=== PATIENT | female | born 1955 | race Caucasian/White ===

== ENCOUNTER → 2018-05-13 13:30 | Outpatient (CLI) | payer MEDICARE, MEDICAID, SELFPAY | PROVIDERS: PCP Family Medicine; Visit Provider Psychiatry & Neurology Neurology | DX: G35 Multiple sclerosis (principal); I69.351 Hemiplegia and hemiparesis following cerebral infarction affecting right dominant side; E11.42 Type 2 diabetes mellitus with diabetic polyneuropathy; F32.2 Major depressive disorder, single episode, severe without psychotic features; Z99.3 Dependence on wheelchair | CPT/HCPCS: 99214 ==

== ENCOUNTER → 2018-05-20 19:37 | Outpatient (REF) | payer MEDICARE, MEDICAID, SELFPAY ==
[2018-05-20 22:47] LABS: Bilirubin Negative (Negative); Blood Negative (Negative); Clarity Cloudy; Glucose Negative (Negative); Ketones Negative (Negative); Leukocyte Esterase Negative (Negative); Nitrite Negative (Negative); Specific Gravity 1.015 (1.005-1.025); Urobilinogen 0.2 EU/dL (Up TO 0.2)
== END ==
LOC: NCHCN 19:37
PROVIDERS: PCP Family Medicine; Visit Provider Family Medicine
DX: N39.0 Urinary tract infection, site not specified (principal)
CPT/HCPCS: 81003; 87086

== ENCOUNTER 2018-09-01 21:10 | Outpatient (REF) | payer MEDICARE, MEDICAID, SELFPAY ==
[2018-09-01 22:31] LABS: ALT 24 U/L (12-78); AST 39 U/L (15-37); Albumin 3.1 g/dL (3.4-5.0); Alkaline Phosphatase 121 U/L (46-116); Anion Gap 7.6 mmol/L (3-11); BUN 7 mg/dL (7-18); CO2 30.4 mmol/L (21.0-32.0); CREATININE 0.78 mg/dL (0.55-1.02); Calcium 8.7 mg/dL (8.5-10.1); Chloride 102 mmol/L (98-107); Glucose 275 mg/dL (70-100); Potassium 3.6 mmol/L (3.5-5.1); Sodium 140 mmol/L (136-145); Total Protein 7.8 g/dL (6.4-8.2)
[2018-09-01 22:41] LABS: HGB 9.4 g/dL (12.0-15.5); Mean Corp. HGB Concentration 30.3 g/dL (32.0-36.0); Mean Corpuscular Hemoglobin 24.8 pg (27.0-33.0); Mean Corpuscular Volume 81.8 fL (80-95); Mean Platelet Volume 12.1 fL (8.0-11.0); RBC 3.79 m/cumm (4.00-5.20); RBC Distribution Width 19.3 % (11.7-14.6); White Blood Cell Count 6.76 k/cumm (4.4-10.8)
[2018-09-01 23:04] LABS: Hemoglobin A1C 9.5 % (4.5-6.2)
[2018-09-01 23:39] LABS: Platelet Count 134 x1000/uL (130-400)
== END 2018-09-01 21:30 ==
LOC: NCHCN 21:10
PROVIDERS: PCP Family Medicine; Visit Provider Family Medicine
DX: G55 Nerve root and plexus compressions in diseases classified elsewhere (principal); E11.9 Type 2 diabetes mellitus without complications; D64.9 Anemia, unspecified
CPT/HCPCS: 80053; 85027; 83036

== ENCOUNTER 2018-12-17 21:22 | Outpatient (REF) | payer MEDICARE, MEDICAID, SELFPAY ==
[2018-12-17 22:11] LABS: HCT 29.5 % (36.0-46.0); HGB 8.6 g/dL (12.0-15.5); Mean Corp. HGB Concentration 29.2 g/dL (32.0-36.0); Mean Corpuscular Hemoglobin 24.4 pg (27.0-33.0); Mean Corpuscular Volume 83.6 fL (80-95); RBC 3.53 m/cumm (4.00-5.20); RBC Distribution Width 20.6 % (11.7-14.6); White Blood Cell Count 5.96 k/cumm (4.4-10.8)
[2018-12-17 22:28] LABS: Iron 52 ug/dL (50-175); Total Iron Binding Capacity 428 ug/dL (250-450); Transferrin Sat 12 % (15-50)
[2018-12-17 22:34] LABS: Hemoglobin A1C 7.3 % (4.5-6.2)
[2018-12-17 23:06] LABS: Platelet Count 100 x1000/uL (130-400)
[2018-12-18 13:47] LABS: Vitamin D 25 Total 103.7 ng/ml (30-100)
[2018-12-22 17:05] LABS: 25-Hydroxy D Total 53 ng/mL; 25-Hydroxy D2 <4.0 ng/mL; 25-Hydroxy D3 53 ng/mL
== END 2018-12-17 21:42 ==
LOC: NCHCN 21:22
PROVIDERS: PCP Family Medicine; Visit Provider Family Medicine
DX: R53.1 Weakness (principal); E11.9 Type 2 diabetes mellitus without complications; Z79.4 Long term (current) use of insulin; G35 Multiple sclerosis; E67.3 Hypervitaminosis D; D64.9 Anemia, unspecified; I10 Essential (primary) hypertension
CPT/HCPCS: 82306; 85027; 83036; 83540; 83550

== ENCOUNTER 2018-12-22 21:36 | Outpatient (REF) | payer MEDICARE, MEDICAID, SELFPAY ==
[2018-12-22 21:38] LABS: Reticulocyte 2.4 % (0.5-2.4)
[2018-12-22 21:54] LABS: COMMENT (LAB VIEW ONLY) 22.92 mg/dL; Microalb ug/mg Crea 47.1 ug/mg Cr
[2018-12-22 22:32] LABS: Ferritin 14 ng/mL (8-388)
== END 2018-12-22 21:56 ==
LOC: NCHCN 21:36
PROVIDERS: PCP Family Medicine; Visit Provider Family Medicine
DX: D64.9 Anemia, unspecified (principal); E11.40 Type 2 diabetes mellitus with diabetic neuropathy, unspecified; G35 Multiple sclerosis; Z79.4 Long term (current) use of insulin
CPT/HCPCS: 82043; 82570; 82728; 85045

== ENCOUNTER 2019-01-13 04:17 | Outpatient (RCR) | payer MEDICARE, MEDICAID, SELFPAY ==
[2019-01-13] MEDS: Normal Saline Flush 10 ML SYR IVP (09:18)
== END 2019-02-09 23:59 | disposition home or self-care (01) ==
LOC: INF 04:17
PROVIDERS: PCP Family Medicine; Visit Provider Family Medicine
DX: D50.9 Iron deficiency anemia, unspecified (principal); G35 Multiple sclerosis; Z86.73 Personal history of transient ischemic attack (TIA), and cerebral infarction without residual deficits; E11.40 Type 2 diabetes mellitus with diabetic neuropathy, unspecified; I69.351 Hemiplegia and hemiparesis following cerebral infarction affecting right dominant side; I10 Essential (primary) hypertension
CPT/HCPCS: 96365; 96366; 99214; J1756

== ENCOUNTER 2019-09-01 20:24 | Outpatient (REF) | payer MEDICARE, MEDICAID, SELFPAY ==
[2019-09-01 12:52] LABS: Bilirubin Negative (Negative); Blood Moderate (Negative); Clarity Cloudy (Clear); Glucose Negative (Negative); Ketones Negative (Negative); Leukocyte Esterase Small (Negative); Nitrite Positive (Negative)
[2019-09-01 13:02] LABS: Bacteria Packed HPF (Negative); Epithelial Cells Moderate HPF (Negative)
[2019-09-01 13:03] LABS: C & S Indicated? C&S Done As Ordered
== END 2019-09-01 20:44 ==
LOC: LBN 20:24
PROVIDERS: PCP Family Medicine; Visit Provider Family Medicine
DX: R35.0 Frequency of micturition (principal)
CPT/HCPCS: 87077; 81003; 81015; 87086; 87186

== ENCOUNTER 2019-12-08 12:13 | Outpatient (REF) | payer MEDICARE, MEDICAID, SELFPAY ==
[2019-12-08 12:59] LABS: Bilirubin Negative (Negative); Blood Small (Negative); Clarity Cloudy (Clear); Glucose Negative (Negative); Ketones Negative (Negative); Leukocyte Esterase Large (Negative); Nitrite Positive (Negative)
[2019-12-08 13:06] LABS: C & S Indicated? C&S Done As Ordered
[2019-12-08 21:22] LABS: Bacteria Many HPF (Negative)
[2019-12-08 21:36] LABS: WBC >50 HPF (0-5)
== END 2019-12-08 12:33 ==
LOC: LBN 12:13
PROVIDERS: PCP Family Medicine; Visit Provider Nurse Practitioner Adult Health
DX: N39.0 Urinary tract infection, site not specified (principal)
CPT/HCPCS: 87077; 81003; 81015; 87086; 87186

== ENCOUNTER 2019-12-14 09:53 | Outpatient (CLI) | payer MEDICARE, MEDICAID, SELFPAY ==
[2019-12-14 11:40] LABS: Anion Gap 8.5 mmol/L (3-11); BUN 8 mg/dL (7-18); CO2 26.5 mmol/L (21.0-32.0); CREATININE 0.69 mg/dL (0.55-1.02); Calcium 8.1 mg/dL (8.5-10.1); Chloride 106 mmol/L (98-107); Glucose 137 mg/dL (74-106); Potassium 3.8 mmol/L (3.5-5.1); Sodium 141 mmol/L (136-145)
[2019-12-14 11:49] LABS: Hemoglobin A1C 5.3 % (3.8-5.6)
[2019-12-14 11:56] LABS: Absolute Basophil Count 0.08 k/cumm (0.0-0.2); Absolute Eosinophil Count 0.24 k/cumm (0.0-0.7); Absolute Lymphocyte Count 1.44 k/cumm (1.2-3.4); Absolute Monocyte Count 1.18 k/cumm (0.11-0.7); Absolute Neutrophil Count 2.95 k/cumm (1.2-6.7); Basophils % 1.4; Eosinophils % 4.1; HCT 28.6 % (36.0-46.0); HGB 8.6 g/dL (12.0-15.5); Lymphocytes % 24.4; Mean Corp. HGB Concentration 30.1 g/dL (32.0-36.0); Mean Corpuscular Hemoglobin 25.2 pg (27.0-33.0); Mean Corpuscular Volume 83.9 fL (80-95); Mean Platelet Volume 11.1 fL (8.0-11.0); Neutrophils % 50.1; Platelet Count 155 x1000/uL (130-400); RBC 3.41 m/cumm (4.00-5.20); White Blood Cell Count 5.89 k/cumm (4.4-10.8)
[2019-12-14 12:26] LABS: Macrocytosis 1+; Poikilocytes 1+; Polychromasia Present
[2019-12-14 12:27] LABS: Anisocytosis 2+; Hypochromasia 2+
[2019-12-14 12:31] LABS: Diff Comment RBC Morph Reviewed
== END 2019-12-14 10:13 ==
PROVIDERS: PCP Family Medicine; Visit Provider Nurse Practitioner Adult Health
DX: D50.9 Iron deficiency anemia, unspecified (principal); E11.9 Type 2 diabetes mellitus without complications; N31.9 Neuromuscular dysfunction of bladder, unspecified; E78.5 Hyperlipidemia, unspecified
CPT/HCPCS: 80048; 83036; 85025

== ENCOUNTER 2020-01-11 12:56 | Outpatient (REF) | payer MEDICARE, MEDICAID, SELFPAY ==
[2020-01-11 13:37] LABS: Absolute Basophil Count 0.06 k/cumm (0.0-0.2); Absolute Eosinophil Count 0.28 k/cumm (0.0-0.7); Absolute Lymphocyte Count 1.51 k/cumm (1.2-3.4); Absolute Monocyte Count 0.71 k/cumm (0.11-0.7); Absolute Neutrophil Count 2.49 k/cumm (1.2-6.7); Basophils % 1.2; Eosinophils % 5.5; HCT 28.4 % (36.0-46.0); HGB 8.4 g/dL (12.0-15.5); Lymphocytes % 29.9; Mean Corp. HGB Concentration 29.6 g/dL (32.0-36.0); Mean Corpuscular Hemoglobin 25.3 pg (27.0-33.0); Mean Corpuscular Volume 85.5 fL (80-95); Mean Platelet Volume 11.2 fL (8.0-11.0); Monocytes % 14.1; Neutrophils % 49.3; Platelet Count 116 x1000/uL (130-400); RBC 3.32 m/cumm (4.00-5.20); White Blood Cell Count 5.05 k/cumm (4.4-10.8)
[2020-01-11 14:07] LABS: Anisocytosis 1+; Diff Comment RBC Morph Reviewed
== END 2020-01-11 13:16 ==
LOC: LBN 12:56
PROVIDERS: PCP Family Medicine; Visit Provider Nurse Practitioner Adult Health
DX: D50.9 Iron deficiency anemia, unspecified (principal); E78.5 Hyperlipidemia, unspecified; R39.81 Functional urinary incontinence
CPT/HCPCS: 85025

== ENCOUNTER 2020-01-27 12:22 | Outpatient (REF) | payer MEDICARE, MEDICAID, SELFPAY | END 2020-01-27 12:42 | LOC: LBN 12:22 | PROVIDERS: PCP Family Medicine; Visit Provider Nurse Practitioner Adult Health | DX: R82.90 Unspecified abnormal findings in urine (principal) | CPT/HCPCS: 87077; 87086; 87186 ==

== ENCOUNTER 2020-02-12 22:19 | Emergency (ER) | payer MEDICARE, MEDICAID, SELFPAY ==
[2020-02-12] VITALS (12 sets, daily range): BP systolic 147–161; BP diastolic 59–87; PULSE 68–74; RESP 10–20; TEMP 36.4; O2SAT 97–100
--- NOTE | 2020-02-12 22:15 | DI.RAD_ITS ---
EXAM: XR FEMUR RT CLINICAL HISTORY: pain s/p fall TECHNIQUE: 2D digital imaging was performed. COMPARISON: No exams were available for comparison FINDINGS: There is a fracture through the distal femoral metadiaphysis which shows mild comminution. There is posterior displacement and angulation. The more proximal femur is not well seen in part due to the patient's body habitus. The bones appear osteoporotic. IMPRESSION: Distal femoral fracture.
--- NOTE | 2020-02-12 22:15 | DI.RAD_ITS ---
EXAM: XR CHEST 1V IN DI DEPT CLINICAL HISTORY: fall TECHNIQUE: 2D digital imaging was performed. COMPARISON: BARIUM SWALLOW ONLY from 04/10/2017 FINDINGS: Exam is limited by the patient's body habitus. The heart size is within normal limits for projectio n. EKG leads overlie the chest. The lungs are grossly clear. There is no gross and evidence of pne umothorax. IMPRESSION: No acute abnormality.
--- NOTE | 2020-02-12 22:15 | DI.RAD_ITS ---
EXAM: XR TIB/FIB RT CLINICAL HISTORY: pain s/p fall TECHNIQUE: 2D digital imaging was performed. COMPARISON: No exams were available for comparison FINDINGS: The exam is limited by overlying material. The distal fibula and ankle region are not well seen. T here is no gross evidence of fracture. Soft tissue edema is seen. The bones appear osteoporotic. IMPRESSION: Limited exam. No gross evidence of an acute abnormality.
--- NOTE | 2020-02-12 22:15 | DI.RAD_ITS ---
EXAM: XR KNEE RT 2V AP,LAT CLINICAL HISTORY: pain s/p fall TECHNIQUE: 2D digital imaging was performed. COMPARISON: RIGHT KNEE LIMITED 1 OR 2 VIEW from 01/13/2014 FINDINGS: There is an oblique fracture through the distal femoral meta diaphysis. There is some displacement and comminution. Soft tissue edema is seen. The proximal tibia and fibula appear grossly intact. IMPRESSION: Distal femoral fracture.
--- NOTE | 2020-02-12 22:15 | DI.RAD_ITS ---
EXAM: XR HIP RT COMPLETE AP PELVIS INDICATION: pain s/p fall. COMPARISON: PELVIS AP from 08/28/2017 TECHNIQUE: 2D digital imaging was performed. FINDINGS: No acute fracture or dislocation is seen. There is mild bilateral acetabular spurring. The joint s paces are well maintained. There is a chronic appearing deformity of the right ischium, unchanged wh en compared with the previous exam. IMPRESSION: No acute abnormality. DATA REPOSITORY: RADIATION DOSE DELIVERED:
--- NOTE | 2020-02-12 22:29 | ED.GENADUL_ITS ---
Discharge Plan Disposition Patient Disposition: HOME Condition: Stable Discharge Details Chief Complaint: Orthopedic Clinical Impression: Hypomagnesemia, Fall, Blunt trauma of right lower leg, Closed fracture of distal end of right femur Primary Care Provider: Ambrosio Elias ED Provider: David Amaya [place] Meds and New Rx's Prescriptions: Continued bisacodyl 10 mg suppository 10 mg SD DAILY PRNRF: 0 guaifenesin [Mucinex] 600 mg tablet extended release 12hr 600 mg PO Q12H RF: 0 polyethylene glycol 3350(bulk) [Base B,Polyethylene [id number]] granules 17 grnl miscellaneous PRN RF: 0 (DME) Depend Silhouette Women L/XL misc 1 ea Miscellaneous BID Qty: 200 RF: 5 cholecalciferol (vitamin D3) 5,000 unit capsule 5,000 unit PO DAILY Qty: 90 RF: 3 buspirone 10 mg tablet 10 mg PO BID Qty: 60 RF: 11 Novolin 70-30 FlexPen U-100 100 unit/mL (70-30) insulin pen 55 unit SC AC RF: 0 epinephrine 0.3 mg/0.3 mL auto-injector 0.3 mg IM ONCE Qty: 1 RF: 3 nitroglycerin [Nitrostat] 0.4 mg tablet, sublingual 0.4 mg Sublingual PRN Qty: 25 RF: 4 furosemide 40 mg tablet 20 mg PO DAILY PRN (Reason: edema) Qty: 90 RF: 3 acetaminophen [Tylenol] 325 MG tablet 650 mg PO Q4H PRN RF: 0 hydroxyzine HCl 25 MG tablet 25 mg PO Q4H PRN Qty: 60 RF: 0 nystatin 60 GM powder 1 applic Topical BID PRNQty: 60 RF: 6 nystatin 15 GM cream 0 Topical BID Qty: 30 RF: 3 magnesium hydroxide [Milk of Magnesia] 400 MG/5 ML suspension 30 ml PO PRN RF: 0 alum-mag hydroxide-simeth [Maalox Advanced] 355 ML suspension 30 ml PO PRN RF: 0 (DME) blood-glucose meter [MergeLocalTouch Ultra2 Meter] kit See Dose Instructions .ROUTE .MEDSUPPLY Qty: 1 RF: 0 carbidopa-levodopa 25-250 mg tablet 1 tab PO QHS Qty: 90 RF: 3 clopidogrel 75 mg tablet 75 mg PO DAILY Qty: 90 RF: 3 Flovent HFA 110 mcg/actuation HFA aerosol inhaler 2 puff IH BID Qty: 12 RF: 11 lisinopril 10 mg tablet 10 mg PO DAILY Qty: 90 RF: 3 metformin 1,000 mg tablet 1,000 mg PO BID Qty: 180 RF: 3 pantoprazole 40 mg tablet,delayed release (DR/EC) 40 mg PO DAILY Qty: 90 RF: 3 venlafaxine 75 mg tablet 75 mg PO BID Qty: 180 RF: 3 venlafaxine 37.5 mg tablet 37.5 mg PO BID Qty: 180 RF: 3 metoprolol tartrate 50 mg tablet 50 mg PO BID Qty: 180 RF: 3 (DME) pen needle, diabetic [BD Ultra-Fine Roxanna Pen Needle] 32 gauge x 5/32 needle 1 ea Miscellaneous QID Qty: 400 RF: 5 albuterol sulfate [Ventolin HFA] 90 mcg/actuation HFA aerosol inhaler 2 puff IH Q4H PRN (Reason: shortness of breath or wheezing) Qty: 8.5 RF: 11 (DME) lancets 30 gauge misc See Rx Instructions .ROUTE .MEDSUPPLY Qty: 200 RF: 11 (DME) OneTouch Ultra Blue Test Strip Strip See Dose Instructions .ROUTE .MEDSUPPLY Qty: 200 RF: 11 Discharge Instructions Instructions: Leg Fracture (ED), Hypomagnesemia (ED) Additional Instructions: you have a distal femur fracture. Call orthopedics Friday to arrange a follow up appointment your magnesium was low here, try to increase this through diet and have it rechecked in 1-2 weeks Use the immobilizer until you follow up with orthopedics Referrals: Dk Valentine MD [ [facility] STAFF PHYSICIAN] - Medical Decision Making 65 yo female with hx of prior cva with right sided hemiparesis and wheel chair bound, MS, t2dm, cad, who comes in from [facility] re[facility] after she was being assisted from the toilet to her wheel chair and slipped and fell landing on her right leg. She denies loc, head pain, neck pain chest pain abdominal pain. Has some mid right thigh pain. EMS states the mid thigh appeared swollen and she had relief of pain with traction splint. She normally can't move her right leg from the cva she's had and can't move her leg now. Does have normal cap refill, no pain inor deformity of the right foot or ankle or distal tibia. Has pain in right mid femur. Will xray right leg and monitor. pt remains stable and labs show no acute findings other than low mag. She has a distal femur fracture. I spoke with Dr. Valentine who reviewed images and given she at baseline can't use the leg recommends trial of nonoperative immobilization with leg splint and will f/u with her as outpatient, patient in agreement with this plan Differential Diagnosis Differential Diagnosis: fracture, contusion, sprain, strain Medical Records Medical records reviewed: Yes I reviewed the patient's medical records. Imaging Data Radiologic Study: Attestation: I personally reviewed and interpreted this imaging study as follows: Imaging: X-Ray Radiologist's impression: femur xray IMPRESSION: Closed, acute, oblique comminuted fracture of the right femoral distal shaft / distal metaphysis with posteromedial displacement of the distal major fracture fragment. Radiologic Study #2: Attestation: I personally reviewed and interpreted this imaging study as follows: Imaging: X-Ray Radiologist's impression: negative tib/fib xray Radiologic Study #3: Attestation: I personally reviewed and interpreted this imaging study as follows: Imaging: X-Ray Radiologist's impression: PROCEDURE INFORMATION: Exam: XR Right Knee Exam date and time: 02/12/2020 10:57 PM Age: 65 years old Clinical indication: Right thigh pain, leg pain, S/P fall TECHNIQUE: Imaging protocol: XR Right knee. Views: 3 views. COMPARISON: CR RIGHT KNEE 3 VIEWS 08/08/2016 2:04 PM FINDINGS: Bones/joints: Closed, acute, oblique comminuted fracture of the right femoral distal shaft / distal metaphysis with posteromedial displacement of the distal major fracture fragment. No dislocation. No significant degenerative change. No joint effusion by plain film. Soft tissues: No soft tissue radiopaque foreign body. Distal right thigh soft tissue edema. IMPRESSION: Closed, acute, oblique comminuted fracture of the right femoral distal shaft / distal metaphysis with posteromedial displacement of the distal major fracture fragment. Radiologic Study #4: Attestation: I personally reviewed and interpreted this imaging study as follows: Imaging: X-Ray Radiologist's impression: PROCEDURE INFORMATION: Exam: XR Right Hip with Pelvis when Performed Exam date and time: 02/12/2020 10:54 PM Age: 65 years old Clinical indication: Right thigh pain; Right hip; S/P fall TECHNIQUE: Imaging protocol: XR Right hip with pelvis when performed. Views: 2 or 3 views. COMPARISON: No relevant prior studies available. FINDINGS: Bones/joints: No fracture. No dislocation. No joint space narrowing. No degenerative change. Soft tissues: Unremarkable. IMPRESSION: No acute findings. Radiologic Study #5: Attestation: I personally reviewed and interpreted this imaging study as follows: Imaging: X-Ray Radiologist's impression: PROCEDURE INFORMATION: Exam: XR Chest, 1 View Exam date and time: 02/12/2020 11:15 PM Age: 65 years old Clinical indication: Right leg pain S/P fall TECHNIQUE: Imaging protocol: XR of the chest Views: 1 view. COMPARISON: CR CHEST 2 VIEWS PA,LAT 01/21/2017 8:29 AM FINDINGS: Tubes, catheters and devices: Cardiac leads superimposed over the chest. Lungs: No alveolar infiltrate. Pleural space: No pleural fluid collection. No pneumothorax. Heart/Mediastinum: Unremarkable. No cardiomegaly. Bones/joints: Unremarkable. IMPRESSION: No active pulmonary disease. Lab Data Lab results reviewed: Yes I reviewed the patient's lab results. ECG Data Attestation: I personally reviewed and interpreted this ECG (s) as follows: Prior ECG tracings: not available for review Interpretation: sinus rhythm, rate of 74, pr 186, qtc 426 HPI General Mode of arrival: EMS . Date/Time Provider Initiated Documentation: 02/12/20 22:29 . Limitations to Documentation: no limitations . Information obtained by: patient and EMS . History of Present Illness 65 year old F presents to the emergency department with the chief complaint of fall, described as moderate, and it has been constant. No relieving factors improve symptom(s), No exacerbating factors reported . Related Data Home Medications Medication Instructions Recorded Confirmed acetaminophen [Tylenol] 650 mg PO Q4H PRN tab-cap 08/24/14 02/12/20 hydroxyzine HCl 25 mg PO Q4H PRN #60 tab-cap 01/09/17 10/19/19 nystatin 1 applic TOPICAL BID PRN #60 ea 09/11/17 10/19/19 nystatin 0 TOPICAL BID #30 g 09/12/17 10/19/19 alum-mag hydroxide-simeth [Maalox 30 ml PO PRN ml 05/13/18 02/12/20 Advanced] magnesium hydroxide [Milk of 30 ml PO PRN ml 05/13/18 02/12/20 Magnesia] bisacodyl 10 mg rectal suppository 10 mg SD DAILY PRN 01/13/19 02/12/20 guaifenesin 600 mg tablet, 600 mg PO Q12H 01/13/19 10/19/19 extended release 12 hr polyethylene glycol 3350(bulk) 17 grnl MISCELLANEOUS PRN gm 01/13/19 02/12/20 blood-glucose meter #1 each 02/19/19 10/19/19 cholecalciferol (vitamin D3) 125 5,000 unit PO DAILY #90 cap 02/22/19 02/12/20 mcg (5,000 unit) capsule diaper,brief,adult,disposable #200 each 02/22/19 10/19/19 carbidopa 25 mg-levodopa 250 mg 1 tab PO QHS #90 tab 03/04/19 02/12/20 tablet clopidogrel 75 mg tablet 75 mg PO DAILY #90 tab 03/05/19 02/12/20 fluticasone propionate 110 2 puff IH BID #12 gm 03/15/19 02/12/20 mcg/actuation HFA aerosol inhaler lisinopril 10 mg tablet 10 mg PO DAILY #90 tab 03/15/19 02/12/20 metformin 1,000 mg tablet 1,000 mg PO BID #180 tab 03/15/19 02/12/20 pantoprazole 40 mg tablet,delayed 40 mg PO DAILY #90 tab 03/15/19 02/12/20 release venlafaxine 37.5 mg tablet 37.5 mg PO BID #180 tab-cap 03/15/19 02/12/20 venlafaxine 75 mg tablet 75 mg PO BID #180 tab-cap 03/15/19 02/12/20 metoprolol tartrate 50 mg tablet 50 mg PO BID #180 tab 04/25/19 02/12/20 pen needle, diabetic 32 gauge x #400 ea 05/10/19 10/19/1932 buspirone 10 mg tablet 10 mg PO BID #60 tab 06/01/19 02/12/20 epinephrine 0.3 mg/0.3 mL 0.3 mg IM ONCE #1 syr 09/01/19 02/12/20 injection, auto-injector insulin NPH-regular 70-30 U-100 55 unit SC AC ml 09/01/19 10/19/19 insulin 100 unit/mL subcutaneous pen nitroglycerin 0.4 mg sublingual 0.4 mg SUBLINGUAL PRN #25 tab.sl 09/01/19 02/12/20 tablet albuterol sulfate 90 mcg/actuation 2 puff IH Q4H PRN #8.5 gm 09/16/19 10/19/19 aerosol inhaler furosemide 40 mg tablet 20 mg PO DAILY PRN #90 tab-cap 10/19/19 10/19/19 OneTouch Ultra Blue Test Strip #200 each NS 10/20/19 lancets 30 gauge #200 each 10/20/19 Previous Rx's Medication Instructions Recorded blood-glucose meter #1 each 02/19/19 cholecalciferol (vitamin D3) 125 5,000 unit PO DAILY #90 cap 02/22/19 mcg (5,000 unit) capsule diaper,brief,adult,disposable #200 each 02/22/19 carbidopa 25 mg-levodopa 250 mg 1 tab PO QHS #90 tab 03/04/19 tablet clopidogrel 75 mg tablet 75 mg PO DAILY #90 tab 03/05/19 fluticasone propionate 110 2 puff IH BID #12 gm 03/15/19 mcg/actuation HFA aerosol inhaler lisinopril 10 mg tablet 10 mg PO DAILY #90 tab 03/15/19 metformin 1,000 mg tablet 1,000 mg PO BID #180 tab 03/15/19 pantoprazole 40 mg tablet,delayed 40 mg PO DAILY #90 tab 03/15/19 release venlafaxine 37.5 mg tablet 37.5 mg PO BID #180 tab-cap 03/15/19 venlafaxine 75 mg tablet 75 mg PO BID #180 tab-cap 03/15/19 metoprolol tartrate 50 mg tablet 50 mg PO BID #180 tab 04/25/19 pen needle, diabetic 32 gauge x #400 ea 05/10/19 buspirone 10 mg tablet 10 mg PO BID #60 tab 06/01/19 epinephrine 0.3 mg/0.3 mL 0.3 mg IM ONCE #1 syr 09/01/19 injection, auto-injector nitroglycerin 0.4 mg sublingual 0.4 mg SUBLINGUAL PRN #25 tab.sl 09/01/19 tablet albuterol sulfate 90 mcg/actuation 2 puff IH Q4H PRN #8.5 gm 09/16/19 aerosol inhaler furosemide 40 mg tablet 20 mg PO DAILY PRN #90 tab-cap 10/19/19 OneTouch Ultra Blue Test Strip #200 each NS 10/20/19 lancets 30 gauge #200 each 10/20/19 Allergies Allergy/AdvReac Type Severity Reaction Status Date / Time duloxetine HCl Allergy Severe Verified 02/12/20 22:29 [From Cymbalta] iodine Allergy Severe Other (See Unverified 02/12/20 22:29 Comment) Penicillins Allergy Severe Anaphylaxsi Verified 02/12/20 22:29 s insulin glargine, human Allergy Intermediate Verified 02/12/20 22:29 recombin. a [From Lantus] azithromycin Allergy Unknown Hives Verified 02/12/20 22:29 latex Allergy Unknown Verified 02/12/20 22:29 adhesive Allergy Verified 02/12/20 22:29 egg Allergy unknown Verified 02/12/20 22:29 ibuprofen [From Motrin] Allergy asthma Unverified 02/12/20 22:29 nut - unspecified Allergy Swelling/Ed Unverified 02/12/20 22:29 oswaldo sodium hypochlorite solution Allergy Unverified 02/12/20 22:29 enoxaparin [From Lovenox] AdvReac Mild Skin Rash Unverified 02/12/20 22:29 paroxetine AdvReac Mild sexual Unverified 02/12/20 22:29 dysfunction tetracycline AdvReac Mild yeast Unverified 02/12/20 22:29 hmg co reductasse inhibitors AdvReac Uncoded 02/12/20 22:29 General Stated Complaint: Orthopedic NAE: 3 Review of Systems All systems reviewed & are unremarkable except as noted in HPI and below Constitutional Constitutional: Denies chills, Denies fever(s) and Denies weakness Cardiovascular Cardiovascular: Denies chest pain and Denies dyspnea Respiratory Respiratory: Denies dyspnea Gastrointestinal Gastrointestinal: Denies abdominal pain, Denies nausea and Denies vomiting Musculoskeletal Musculoskeletal: Denies joint swelling Neurologic Neurologic: Denies weakness Psychiatric Psychiatric: Denies depression [facility] Medical History (Updated 02/13/20 @ 00:05 by David Amaya MD) Anemia (Acute 05/04/18) CAD (coronary artery disease) (Chronic) Carpal tunnel syndrome (Resolved) Cholelithiasis (Acute) COPD (chronic obstructive pulmonary disease) (Chronic) Depressive disorder (Chronic 02/25/13) Diabetes mellitus (Resolved 09/28/12) Fecal incontinence (Chronic) Gastroesophageal reflux disease (Acute 05/06/13) History of alcohol abuse (Chronic) Hyperlipidemia (Chronic) Hypertension (Chronic) Hypomagnesemia (Acute) Multinodular goiter (Chronic) Multiple sclerosis (Chronic) Secondary progressive; off DMT Myocardial infarction (Acute 06/12/11) stents x 2 Neurogenic bladder (Acute 07/09/16) senior care resident (Chronic) [employer] Obesity (Acute) Palliative care patient (Chronic) Pedal edema (Acute) Peripheral neuropathy (Acute 01/05/15) diabetic Poorly controlled type 2 diabetes mellitus (Acute) Restless leg syndrome (Acute) Stroke (Acute 01/05/15) R hemiparesis Thrombocytopenia (Acute 05/04/18) Urinary incontinence (Chronic) Surgical History (Updated 05/21/19 @ 12:47 by Rubén Mederos) Bilateral salpingectomy with oophorectomy section Open Carpal Tunnel release (06/21/11) [facility] [place] S/P cubital tunnel release (Acute) Stent placement Social History Smoking/Tobacco Use Status: Former Tobacco Use Second Hand Exposure: Yes Alcohol Intake: former Drug use: Current Sobriety Substance use type: unknown Housing: retirement Number of Children: 1 Pets and animals: No Sexually active: No Do you think of yourself as: straight/heterosexual Current gender identity: female How often do you talk on the phone with friends or family?: decline to answer How often do you get together with friends or relatives?: decline to answer How often do you attend confucianist or yazidi services?: decline to answer Do you belong to any clubs or organized social groups?: decline to answer What type of physical activity do you participate in: none Gely/Adventism: None Special gely needs: No Do you feel safe in your relationship?: Yes Additional Social history: She has been on disability since her diagnosis of MS. She lives at the [facility]. 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 She has one son. Exam Const General: no acute distress Orientation: alert HENID Head: normal to inspection Ears: external ears normal General nose exam: external nose normal Mouth: moist mucous membranes Eyes General: appearance normal, both eyes and all related structures Neck Neck: normal visual inspection Resp Effort & Inspection: normal respiratory effort and able to speak in complete sentences Cardio Rate: regular rate Skin General skin exam: no rashes or lesions noted Neuro General: patient alert and patient oriented x3 Extrem General: capillary refill normal Psych Mental Status: mental status grossly normal Course Vital Signs Vital signs: Vital Signs Temperature 36.4 C L 02/12/20 22:19 Pulse 72 02/12/20 22:19 Respiratory Rate 16 02/12/20 22:19 Blood Pressure 161/74 H 02/12/20 22:19 Pulse Oximetry 99 02/12/20 22:19 Temperature 36.4 C L 02/12/20 22:19 Pulse 72 02/12/20 22:19 Respiratory Rate 16 02/12/20 22:19 Blood Pressure 161/74 H 02/12/20 22:19 Pulse Oximetry 99 02/12/20 22:19
[2020-02-12] MEDS: HYDROmorphone 2 MG/ML VIAL 0.5 MG IVP (22:36)
[2020-02-12 22:49] LABS: Absolute Basophil Count 0.08 k/cumm (0.0-0.2); Absolute Eosinophil Count 0.36 k/cumm (0.0-0.7); Absolute Lymphocyte Count 1.53 k/cumm (1.2-3.4); Basophils % 1.4; Eosinophils % 6.3; HCT 26.8 % (36.0-46.0); Mean Corp. HGB Concentration 29.9 g/dL (32.0-36.0); Mean Corpuscular Hemoglobin 25.8 pg (27.0-33.0); Mean Corpuscular Volume 86.5 fL (80-95); Monocytes % 14.1; Neutrophils % 51.2; Platelet Count 128 x1000/uL (130-400); White Blood Cell Count 5.67 k/cumm (4.4-10.8)
[2020-02-12 23:02] LABS: INR 1.2 (0.9-1.1); PTT Activated 22.1 sec (21.0-31.4); Prothrombin Time 11.8 sec (9.3-11.0)
[2020-02-12 23:05] LABS: ALT 16 U/L (14-59); AST 33 U/L (15-37); Albumin 2.7 g/dL (3.4-5.0); Alkaline Phosphatase 92 U/L (46-116); Anion Gap 5.1 mmol/L (3-11); BUN 14 mg/dL (7-18); Bilirubin, Total 0.9 mg/dL (0.2-1.0); CO2 28.9 mmol/L (21.0-32.0); CREATININE 0.91 mg/dL (0.55-1.02); Calcium 9.1 mg/dL (8.5-10.1); Chloride 106 mmol/L (98-107); Glucose 148 mg/dL (74-106); Magnesium 1.3 mg/dL (1.8-2.4); Potassium 4.2 mmol/L (3.5-5.1); Sodium 140 mmol/L (136-145); Total Protein 7.5 g/dL (6.4-8.2)
[2020-02-12 23:07] LABS: Troponin I < 0.05 ng/Ml (<0.06)
--- NOTE | 2020-02-12 23:29 | DI.VRAD_ITS ---
PROCEDURE INFORMATION: Exam: XR Right Tibia and Fibula Exam date and time: 02/12/2020 10:59 PM Age: 65 years old Clinical indication: Right thigh pain, leg pain, S/P fall TECHNIQUE: Imaging protocol: XR Right tibia and fibula. Views: 2 views. COMPARISON: CR RIGHT TIB/FIB 08/08/2016 2:04 PM FINDINGS: No fracture or dislocation. No soft tissue radiopaque foreign body. IMPRESSION: No acute findings. Dictated and Authenticated by: Derrick Moses MD. Ordering:AMANDO Hernandez MD
--- NOTE | 2020-02-12 23:31 | DI.VRAD_ITS ---
PROCEDURE INFORMATION: Exam: XR Right Femur Exam date and time: 02/12/2020 10:57 PM Age: 65 years old Clinical indication: Right thigh pain, S/P fall TECHNIQUE: Imaging protocol: XR Right femur. Views: 2 views. COMPARISON: CR RIGHT TIB/FIB 08/08/2016 2:04 PM FINDINGS: Bones/joints: Closed, acute, oblique comminuted fracture of the right femoral distal shaft / distal metaphysis with posteromedial displacement of the distal major fracture fragment. No dislocation. Soft tissues: Distal right thigh soft tissue edema. IMPRESSION: Closed, acute, oblique comminuted fracture of the right femoral distal shaft / distal metaphysis with posteromedial displacement of the distal major fracture fragment. Dictated and Authenticated by: Derrick Moses MD. Ordering:AMANDO Hernandez MD
--- NOTE | 2020-02-12 23:32 | DI.VRAD_ITS ---
PROCEDURE INFORMATION: Exam: XR Right Knee Exam date and time: 02/12/2020 10:57 PM Age: 65 years old Clinical indication: Right thigh pain, leg pain, S/P fall TECHNIQUE: Imaging protocol: XR Right knee. Views: 3 views. COMPARISON: CR RIGHT KNEE 3 VIEWS 08/08/2016 2:04 PM FINDINGS: Bones/joints: Closed, acute, oblique comminuted fracture of the right femoral distal shaft / distal metaphysis with posteromedial displacement of the distal major fracture fragment. No dislocation. No significant degenerative change. No joint effusion by plain film. Soft tissues: No soft tissue radiopaque foreign body. Distal right thigh soft tissue edema. IMPRESSION: Closed, acute, oblique comminuted fracture of the right femoral distal shaft / distal metaphysis with posteromedial displacement of the distal major fracture fragment. Dictated and Authenticated by: Derrick Moses MD. Ordering:AMANDO Hernandez MD
--- NOTE | 2020-02-12 23:34 | DI.VRAD_ITS ---
PROCEDURE INFORMATION: Exam: XR Right Hip with Pelvis when Performed Exam date and time: 02/12/2020 10:54 PM Age: 65 years old Clinical indication: Right thigh pain; Right hip; S/P fall TECHNIQUE: Imaging protocol: XR Right hip with pelvis when performed. Views: 2 or 3 views. COMPARISON: No relevant prior studies available. FINDINGS: Bones/joints: No fracture. No dislocation. No joint space narrowing. No degenerative change. Soft tissues: Unremarkable. IMPRESSION: No acute findings. Dictated and Authenticated by: Derrick Moses MD. Ordering:AMANDO Hernandez MD
--- NOTE | 2020-02-12 23:40 | DI.VRAD_ITS ---
PROCEDURE INFORMATION: Exam: XR Chest, 1 View Exam date and time: 02/12/2020 11:15 PM Age: 65 years old Clinical indication: Right leg pain S/P fall TECHNIQUE: Imaging protocol: XR of the chest Views: 1 view. COMPARISON: CR CHEST 2 VIEWS PA,LAT 01/21/2017 8:29 AM FINDINGS: Tubes, catheters and devices: Cardiac leads superimposed over the chest. Lungs: No alveolar infiltrate. Pleural space: No pleural fluid collection. No pneumothorax. Heart/Mediastinum: Unremarkable. No cardiomegaly. Bones/joints: Unremarkable. IMPRESSION: No active pulmonary disease. Dictated and Authenticated by: Derrick Moses MD. Ordering:AMANDO Hernandez MD
[2020-02-12 23:52] LABS: Anisocytosis 2+; Hypochromasia 1+
[2020-02-12 23:53] LABS: Polychromasia Present
== END 2020-02-13 00:40 | disposition home or self-care (01) ==
LOC: ER 02-13 00:09
PROVIDERS: Emergency Provider Emergency Medicine; PCP Family Medicine
DX: S72.351A Displaced comminuted fracture of shaft of right femur, initial encounter for closed fracture (principal); M79.604 Pain in right leg; W18.11XA Fall from or off toilet without subsequent striking against object, initial encounter; E83.42 Hypomagnesemia; J44.9 Chronic obstructive pulmonary disease, unspecified; Z87.891 Personal history of nicotine dependence; E11.65 Type 2 diabetes mellitus with hyperglycemia; Z79.4 Long term (current) use of insulin; E11.40 Type 2 diabetes mellitus with diabetic neuropathy, unspecified; G35 Multiple sclerosis; I10 Essential (primary) hypertension
CPT/HCPCS: 29505; 36415; 73552; 80053; 93005; 96374; 99285; 71045; 73502; 73560; 73590; 83735; 84484; 85025; 85610; 85730; 93010; L1830

== ENCOUNTER 2020-02-14 19:33 | Outpatient (REF) | payer MEDICARE, MEDICAID, SELFPAY ==
[2020-02-15 18:29] LABS: COVID-19 RT-PCR UVMMC Result Negative (Negative)
== END 2020-02-14 19:53 ==
LOC: LBN 19:33
PROVIDERS: PCP Family Medicine; Visit Provider Nurse Practitioner Adult Health
DX: Z11.59 Encounter for screening for other viral diseases (principal); Z01.818 Encounter for other preprocedural examination
CPT/HCPCS: U0003

== ENCOUNTER 2020-02-17 11:53 | Inpatient (IN) | payer MEDICARE, MEDICAID, SELFPAY ==
[2020-02-17] VITALS (12 sets, daily range): BP systolic 91–150; BP diastolic 23–69; PULSE 58–67; RESP 17–24; TEMP 35.9–37; O2SAT 92–100
[2020-02-17] MEDS: Acetaminophen 500 MG TAB 1000 MG PO (11:10)
[2020-02-17] MEDS: Lactated Ringers 1,000 ML 80 ML IV ×2 (11:51→16:50)
[2020-02-17] MEDS: CLINDAMYCIN 900 MG/50 ML BAG 50 MG IVPB (12:40)
[2020-02-17] MEDS: Bupivacaine 0.25% Pres-Free 30 ML VIAL (14:05)
[2020-02-17] MEDS: Ketorolac 30 MG/ML VIAL (14:06)
--- NOTE | 2020-02-17 14:30 | DI.RAD_ITS ---
EXAM: XR HIP RT IN OR CLINICAL HISTORY: CLOSED FRACTURE OF SHAFT OF RIGHT FEMUR. TECHNIQUE: 2D and realtime digital imaging was performed. COMPARISON: CR,XR XR KNEE RT 2V AP,LAT from 02/12/2020 CR,XR XR TIB/FIB RT from 02/12/2020 FINDINGS: Flouroscopy was provided in the OR. Hard copy images show placement of an intramedullary rigo through the right femur for fracture fixation. Fluoro Time: 116.2 seconds RADIATION DOSE DELIVERED:
--- NOTE | 2020-02-17 14:32 | ROE_ITS ---
Date of service: 02/17/20 Time of Service: 14:32 Operative Note Operative Note DATE OF PROCEDURE: 02/17/20 PRE-OP DIAGNOSIS: Right distal femoral shaft fracture POST-OP DIAGNOSIS: same PROCEDURE: Retrograde intramedullary nailing of right femur SURGEON: Dk Valentine PLASTICS ENGINEERING TEACHER: Emely Brantley ANESTHESIA: GETA ESTIMATED BLOOD LOSS: 50 PATHOLOGY: none sent TOURNIQUET TIME: 0 COMPLICATIONS: None Patient was transported to: PACU Patient's condition: stable Implants: Synthes [id number] Retrograde Femoral Nail Indications: Hayden is a 65-year-old who suffered a distal femoral shaft fracture of the right side while transferring. She is hemiplegic has very little motion on the right side. We try to treat this conservatively at first but she continued to have pain. Given the persistence of pain and the inability to transfer, participate in hygiene, and a long nursing xenia-care, I recommended operative fixation. I discussed the technical features of intramedullary fixation of the right femur. I also discussed the risk to include bleeding, infection, pain, stiffness, malunion, nonunion, damage nerves and vessels, damage to muscle tendons, hardware failure, hardware prominence, blood clot, need for repeat procedures. Despite these risk, she agreed to proceed. Findings: There is a comminuted oblique type fracture of the distal femoral shaft. It was difficult to fully bring the femur out the length and correct some of the translation. However, the overall alignment, both rotationally and angularly, was corrected and transfixed with a retrograde intramedullary nail. Procedure Description: Hayden was greeted in the preoperative holding area. The consent was reviewed with the patient and signed. The history and physical was updated. She was then taken back to the operating room. A general anesthetic was then administered without difficulty. The right leg was then prepped with ChloraPrep and draped in a standard fashion maintaining adequate exposure for proximal screw fixation. Prophylactic antibiotics in the form of clindamycin were given due to her anaphylaxis allergy to penicillins. A timeout was performed for safe surgery. A gentle reduction maneuver was performed over a sterile triangle. This corrected some of the shortening and I was able to fix some of angulation. However, there is still some translation in the medial lateral direction. This is very difficult to manage and did not think it warranted opening. I then proceeded with the nail fixation. A 3 cm incision was made in the midline of the knee. This was taken out sharply the skin. The peritenon the tendon were split down the midline. Blunt dissection was carried into the knee. I then isolated the starting point just above the insertion of the PCL and had midline on the AP. A starting guidewire was placed through the proximal femur. Once it was confirmed to be in a good position both on the AP and the lateral, the opening reamer was used to open the distal femur. The reduction of the femur was once again confirmed and a ball-tipped guidewire was placed up the femur to the level of the lesser trochanter. This length was measured as 340 mm. I then began reaming sequentially from 8 mm up to 17 mm. A 50 mm diameter nail was selected. This was confirmed to be well aligned with the targeting guide on the back table. The Synthes 15 mm x 340 mm retrograde femoral nail was then placed into the femur with light mallet blows. X-ray was used to confirm appropriate positioning. Once it was at an adequate level distally, the nail was secured wi th a spiral blade. This 70 mm spiral blade was inserted with light mallet taps to set on the lateral cortex. A second and third screw was also placed using a targeting guide. These were all placed without difficulty and with good purchase. The 2 proximal screws were then placed using the perfect circles technique. An anterior midline incision was isolated and blunt dissection was carried onto the level of the anterior femur. The femur was drilled and 2 screws were placed with excellent fixation. And then Was placed onto the end of the nail to create a angular locking construct. The targeting guide was removed and final x-rays were obtained. This showed appropriate positioning of the nail and all screws were in excellent position. A mixture of 50 cc of 0.25% bupivacaine, 20 cc of Exparel, and 30 mg ketorolac, were injected to the soft tissues around the injection sites onto the periosteum of the femur where it was exposed. The wounds were thoroughly irrigated. The patellar tendon and peritenon were closed as separate layers. The deep tissue of the anterior lateral incisions were closed with 0 Vicryl. The remainder of the wounds were closed with 2-0 Vicryl followed by running subcuticular 3-0 Monocryl stitch. Skin affix skin glue was applied followed by Mepilex silver dressings. She was placed back into a knee immobilizer. At end the case all counts are correct. She tolerated the surgery well without complication. She will transfer back to the medical surgical floor after the PACU. We will have medicine consult due to her multiple medical comorbidities. She will be weightbearing as tolerated with assistive device for transfers only. She may remove the knee immobilizer while in bed.
--- NOTE | 2020-02-17 16:29 | PT.INNT ---
Date of service: 02/17/20 Time of Service: 16:29 PT Notes Visit Reasons: (R) DISTAL FEMUR FX Patient was brought to Med Surg around 4 PM. She reports 10/10 pain on surgery site and states being foggy. She verbalizes that she still cannot feel her legs. Will plan on PT evaluation first thing tomorrow morning. Thank you very much for this referral. Dennise Castillo PT, DPT, CLT [facility] Inpatient PT at [facility]
--- NOTE | 2020-02-17 19:07 | MCONE_ITS ---
Date of service: 02/17/20 Time of Service: 19:07 Assessment and Plan Assessment and plan (1) Closed fracture of femur, distal end: Status: Acute Assessment and plan: Status post retrograde intramedullary nailing performed earlier today by Dr. Valentine. Routine postop care as per Dr. Valentine's orders. Qualifiers: Encounter type: subsequent encounter Fracture morphology: unspecified fracture morphology Laterality: right Fracture healing: with delayed healing Qualified Code(s): S72.401G - Unspecified fracture of lower end of right femur, subsequent encounter for closed fracture with delayed healing (2) Hypertension: Status: Chronic Assessment and plan: Continue her lisinopril beginning tomorrow morning. Hold for systolic blood pressure less than 110 mm Qualifiers: Hypertension type: essential hypertension Qualified Code(s): I10 - Essential (primary) hypertension (3) CAD (coronary artery disease): Status: Chronic Assessment and plan: No symptoms of active coronary ischemia. I would be vigilant for any atypical symptoms such as unexplained dyspnea or vague epigastr ic or chest discomfort. I cannot find any recent stress MPI's for risk stratification. She had an ST elevation [place] with subsequent coronary stenting in 2010 and the only images I could find was an echocardiogram from January 20, 2017 that showed no wall motion abnormalities and normal left ventricular ejection fraction. I will order EKGs on a as needed basis and be sure that nitroglycerin is ordered on a as needed basis should she have any postoperative chest pain. Resume her Plavix and continue her aspirin And metoprolol. Qualifiers: Coronary Disease-Associated Artery/Lesion type: solomon artery Associated angina: without angina [place] vs. transplanted heart: solomon heart Qualified Code(s): I25.10 - Atherosclerotic heart disease of solomon coronary artery without angina pectoris (4) DM type 2 (diabetes mellitus, type 2): Status: Acute Assessment and plan: Patient has been treated with metformin by her PCP. She lists insulin glargine as an allergy. But I think it would be safe to treat her with sliding scale NovoLog. We will monitor blood sugars before meals and at bedtime and treat appropriately. I will get a glycohemoglobin A1c in the morning. If she is tolerating p.o. we can resume her metformin in the morning. Qualifiers: Diabetes mellitus halfway insulin use: without ocean transportation intermediary use Diabetes mellitus complication status: with neurologic complications Diabetes mellitus complication detail: with polyneuropathy Qualified Code(s): E11.42 - Type 2 diabetes mellitus with diabetic polyneuropathy (5) Hypomagnesemia: Status: Acute Assessment and plan: Her magnesium level was low during her emergency room visit on February 12, 2020. She was never given oral supplementation but told to try to increase it to her diet and have it rechecked in 1 to 2 weeks. I will recheck her magnesium level in the morning with her routine labs and treat as needed. (6) Anemia: Status: Acute Assessment and plan: Repeat CBC in the morning and check serum iron ferritin B12 folic acid levels. Treat as indicated. Qualifiers: Anemia type: unspecified type Qualified Code(s): D64.9 - Anemia, unspecified (7) Gastroesophageal reflux disease: Status: Acute Assessment and plan: Resume her Protonix. Qualifiers: Esophagitis presence: esophagitis presence not specified Qualified Code(s): K21.9 - Gastro-esophageal reflux disease without esophagitis (8) DVT prophylaxis: Status: Acute Assessment and plan: Because of her thrombocytopenia she would not be a good candidate for enoxaparin. I would recommend continuing aspirin and Plavix use Donnell and CHUCKY kohli. History of Present Illness History of Present Illness Chief Complaint: Medical consult Narrative: 65-year-old female who is a resident of 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 She immediately had pain in her right mid thigh. There was no loss of consciousness and no associated chest pain or dyspnea. Because the patient has right hemiplegia and normally does not use her right leg to support her self attempt was made to try to manage her without surgery by using nonoperative immobilization with a leg splint. However because of intractable pain and di fficulty in doing her personal care including bathing and toileting it was decided to bring her to the hospital today for operative repair of her distal femoral fracture. Dr. Dk Valentine performed surgery earlier today including a retrograde intramedullary nailing of her right femur. She did well with surgery and appears to have had no immediate complications from surgery. I have been asked to follow her from medical standpoint because of her multiple comorbidities. With respect to her coronary artery disease per Dr. David Hyman is consultation dated September 16, 2012 Hayden had a prior inferior ST elevation myocardial infarction in June 2011 with drug-eluting stents x2 to her RCA placed by cardiology at [facility]. Even prior to her stroke her physical activity was severely limited because of her multiple sclerosis. Her hyperlipidemia has not been treated because she has been intolerant of TriCor which caused her severe motor symptoms and likewise red yeast rice has been contraindicated as well as all statins. She has familial hyperlipidemia with elevated triglycerides low HDL and elevated LDL levels. As for any hx for CHF, her last echo performed at [facility] was done in 01/20/2017 and showed normal LV size and function w/ LVEF 60% w/ no elevated LV filling pressures, only mild MR, mild LAE, RV size and function was normal although she had mild PHTN w/ RVSP of 30 to 40 mm only mild TR. Preoperative labs from her ER visit on 02/14 demonstrated stable anemia w/ Hb 8.0 gm (this is her baseline which has been around 8.5 gm), anemia is hypochromic w/ increased RDW c/w iron deficiency anemia. She has a chronic thrombocytopenia w/ platelets of 128,000. CMP on 02/15/2020 demonstrated hypomagnesemia 1.3 but normal potassium 4.2 and normal renal function w/ BUN 14 and creatinine of 0.91. Her UA has not been checked since 12/08/2019. Her COVID-19 PCR was negative from 02/14/2020. Patient is currently awake and conversant, no dyspnea or chest pain. I anticipate that she may need transfusion of PRBC in the a.m. although from her type of surgery there should be minimal blood loss from the surgery itself. Review of Systems All systems reviewed & are unremarkable except as noted in HPI and below PFSH Social History Smoking/Tobacco Use Status: Former Tobacco Use Second Hand Exposure: Yes Alcohol Intake: former Drug use: Current Sobriety Substance use type: unknown Housing: residential Number of Children: 1 Pets and animals: No Sexually active: No Do you think of yourself as: straight/heterosexual Current gender identity: female How often do you talk on the phone with friends or family?: decline to answer How often do you get together with friends or relatives?: decline to answer How often do you attend gnosticist or gnosticism services?: decline to answer Do you belong to any clubs or organized social groups?: decline to answer What type of physical activity do you participate in: none Gely/Evangelical: None Special gely needs: No Do you feel safe in your relationship?: Yes Additional Social history: She has been on disability since her diagnosis of MS. She lives at the [facility]. 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 She has one son. Exam Narrative Exam Narrative: Obese female who was asleep when I walked in the room but awakened easily. She is oriented to person place but not oriented to the date although she knew the year but was unsure of the month. HEENT is remarkable for pale conjunctiva and pale mucous membranes. Neck is supple no JVD normal carotid pulses no bruits. Lungs are clear to auscultation Heart is regular with a soft systolic murmur grade 2/6 on the aortic outflow without thrill heave gallop or rub. Abdomen is obese soft and nontender. Right leg is in a splint and therefore cannot examine the surgical wound. She has good pulses over the right foot without cyanosis or edema. She has right hemiplegia and is unable to use her right hand or arm or move her right foot. She has normal range of motion and strength in her left arm and hand. I did not ask her to exhibit the strength in her left leg although she had normal dorsiflexion plantarflexion of the left foot. Results Last Vital Signs Temp 36.4 C L 02/17/20 16:39 Pulse 60 02/17/20 16:39 Resp 18 02/17/20 16:39 BP 119/58 L 02/17/20 16:39 Pulse Ox 93 L 02/17/20 16:39 Labs Labs: Laboratory Results - last 24 hr 02/17/20 10:32 Patient ABO/Rh O Positive Antibody Screen Negative
[2020-02-17] MEDS: Mometasone 220 MCG 14 DOSE INHALER 2 PUFF IH (20:55)
[2020-02-17] MEDS: Venlafaxine 75 MG TAB 112.5 MG PO (20:58)
[2020-02-17] MEDS: busPIRone 5 MG TAB 10 MG PO (20:58)
[2020-02-17] MEDS: Metoprolol 50 MG TAB PO (20:58)
[2020-02-17] MEDS: Refresh PLUS Eye Drops 0.4ml OP (20:59)
[2020-02-17] MEDS: Insulin Aspart 300 UNITS/3 ML PEN SC (21:46)
[2020-02-18] MEDS: Acetaminophen 500 MG TAB PO ×2 (00:20→11:29)
[2020-02-18] MEDS: oxyCODONE 5 MG TAB PO ×2 (02:35→16:48)
[2020-02-18 03:32] VITALS: BP 123/67; PULSE 63; RESP 18; TEMP 36; O2SAT 96
[2020-02-18] MEDS: Lactated Ringers 1,000 ML 80 ML IV ×2 (05:43→21:10)
[2020-02-18 07:14] LABS: Abs Immature Grans 0.02 k/cumm (0.0-0.09); Absolute Basophil Count 0.01 k/cumm (0.0-0.2); Absolute Eosinophil Count 0.01 k/cumm (0.0-0.7); Absolute Lymphocyte Count 1.15 k/cumm (1.2-3.4); Absolute Monocyte Count 1.15 k/cumm (0.11-0.7); Basophils % 0.1; Eosinophils % 0.1; HCT 23.6 % (36.0-46.0); HGB 7.2 g/dL (12.0-15.5); Immature Grans % 0.2 %; Lymphocytes % 13.8; Mean Corp. HGB Concentration 30.5 g/dL (32.0-36.0); Mean Corpuscular Hemoglobin 26.2 pg (27.0-33.0); Mean Corpuscular Volume 85.8 fL (80-95); Mean Platelet Volume 11.3 fL (8.0-11.0); Monocytes % 13.8; Platelet Count 125 x1000/uL (130-400); RBC 2.75 m/cumm (4.00-5.20); RBC Distribution Width 20.4 % (11.7-14.6); White Blood Cell Count 8.34 k/cumm (4.4-10.8)
[2020-02-18 07:32] LABS: Hemoglobin A1C 5.7 % (3.8-5.6)
[2020-02-18 07:36] VITALS: BP 133/76; PULSE 67; RESP 16; TEMP 36; O2SAT 97
[2020-02-18 07:39] LABS: Anion Gap 6.7 mmol/L (3-11); BUN 17 mg/dL (7-18); CO2 25.3 mmol/L (21.0-32.0); CREATININE 0.82 mg/dL (0.55-1.02); Calcium 7.8 mg/dL (8.5-10.1); Chloride 102 mmol/L (98-107); Ferritin 21 ng/mL (8-252); Glucose 112 mg/dL (74-106); Magnesium 1.3 mg/dL (1.8-2.4); Potassium 4.2 mmol/L (3.5-5.1); Sodium 134 mmol/L (136-145)
[2020-02-18 07:44] LABS: Iron 24 ug/dL (50-170); Total Iron Binding Capacity 320 ug/dL (250-450); Transferrin Sat 8 % (15-50)
[2020-02-18] MEDS: Mometasone 220 MCG 14 DOSE INHALER 2 PUFF IH ×2 (07:45→21:05)
--- NOTE | 2020-02-18 07:46 | W.PM.PROGNOT ---
Date of Service Date of service: 02/18/20 Time of Service: 07:46 Assessment and Plan Assessment and plan (1) Closed fracture of femur, distal end: Status: Acute Assessment and plan: Azucena is a 65-year-old status post retrograde nail fixation of a right distal femur fracture. This appears to be doing well. She does have increased pain is I am able to move her leg and she does not seem to have near as much discomfort as she had previously. It will be sore for some time but I think this is expected. We will keep the knee immobilizer on for any transfers. While she is in bed or resting in a chair, she does not need a knee immobilizer in place. She may stand and pivot transfer although I would not try to vans any other weightbearing past that point. We will continue with aspirin and Plavix for DVT prophylaxis. I appreciate hospital medicine consultation to assist in the management of her multiple medical comorbidities. Qualifiers: Encounter type: subsequent encounter Fracture morphology: unspecified fracture morphology Laterality: right Fracture healing: with delayed healing Qualified Code(s): S72.401G - Unspecified fracture of lower end of right femur, subsequent encounter for closed fracture with delayed healing (2) Acute blood loss anemia: Status: Acute Assessment and plan: Azucena does have chronic anemia at baseline and has had a drop in her hemoglobin is 7.3. Relatively speaking, this is still quite small and I bet she will do okay with this hemoglobin level. She currently has no symptoms. However, given that it has already dropped to 7.3 it is likely to drop further. I will discuss this with the medicine team but think 1 unit of blood would be reasonable. Subjective Subjective Interval history since last seen: Azucena reports be doing well. She does report pain of the right leg but does not reported to be much different than before surgery. She reports no numbness or tingling. She has had no issues with the wound. She has had no nausea or vomiting. She denies chest pain or shortness of breath. She has had no fever and no chills. Exam Narrative Exam Narrative: Sitting upright in hospital bed. Alert and oriented x3. No acute distress. Evaluation of the right leg shows dressings over the right leg without any sign of drainage. The thigh is soft and compressible. Gentle internal and external rotation of the right leg does not seem to increase her pain. Full range of motion was not tested. She does have resting equinus of the right foot but is able demonstrate active toe dorsiflexion, per her baseline. She has weak ankle dorsiflexion, if at all, at baseline and this is unchanged. She reports full sensation of the femoral nerve distribution. Objective Objective Clinical Data: Abnormal lab results 02/18/20 02/18/20 02/18/20 Range/Units 07:00 07:00 07:00 RBC 2.75 L (4.00-5.20) m/cumm Hgb 7.2 L (12.0-15.5) g/dL Hct 23.6 L (36.0-46.0) % MCH 26.2 L (27.0-33.0) pg MCHC 30.5 L (32.0-36.0) g/dL RDW 20.4 H (11.7-14.6) % Plt Count 125 L (130-400) x1000/uL MPV 11.3 H (8.0-11.0) fL Absolute Lymphocytes 1.15 L (1.2-3.4) k/cumm Absolute Monocytes 1.15 H (0.11-0.7) k/cumm Sodium 134 L (136-145) mmol/L Glucose 112 H (74-106) mg/dL Hemoglobin A1c 5.7 H (3.8-5.6) % Calcium 7.8 L (8.5-10.1) mg/dL Magnesium 1.3 L (1.8-2.4) mg/dL Vital Signs Temperature 36.0 C L 02/18/20 03:32 Temperature Source Tympanic 02/18/20 03:32 Pulse 63 02/18/20 03:32 Pulse Rhythm Regular 02/18/20 00:00 Respiratory Rate 18 02/18/20 03:32 Respiratory Effort 02/18/20 00:00 Respiratory Depth Normal 02/18/20 00:00 Respiratory Pattern Normal 02/18/20 00:00 Blood Pressure 123/67 02/18/20 03:32 Pulse Oximetry 96 02/18/20 03:32 Respiratory End-tidal CO2 27 02/17/20 15:30 Oxygen Delivery Method Room Air 02/18/20 03:32 Oxygen Flow Rate 0 02/18/20 03:32 Pain Level 6 02/18/20 02:35 Intake & Output 02/17/20 02/17/20 02/18/20 11:59 23:59 11:59 Intake Total 1018 / 1018 1150 / 1150 Output Total 350 / 350 400 / 400 Balance 668 / 668 750 / 750 Weight 100.108 kg Intake: IV 1018 / 1018 1000 / 1000 Oral 150 / 150 Output: Urine 300 / 300 400 / 400 Estimated Blood Loss 50 / 50 Other: Urine Color Lodge Grass Lodge Grass Urine Appearance Clear Clear Clear Emesis Description None Laboratory Results WBC 8.34 k/cumm (4.4-10.8) 02/18/20 07:00 RBC 2.75 m/cumm (4.00-5.20) L 02/18/20 07:00 Hgb 7.2 g/dL (12.0-15.5) L 02/18/20 07:00 Hct 23.6 % (36.0-46.0) L 02/18/20 07:00 MCV 85.8 fL (80-95) 02/18/20 07:00 MCH 26.2 pg (27.0-33.0) L 02/18/20 07:00 MCHC 30.5 g/dL (32.0-36.0) L 02/18/20 07:00 RDW 20.4 % (11.7-14.6) H 02/18/20 07:00 Plt Count 125 x1000/uL (130-400) L 02/18/20 07:00 MPV 11.3 fL (8.0-11.0) H 02/18/20 07:00 Immature Gran % 0.2 % 02/18/20 07:00 Neutrophils % 72.0 02/18/20 07:00 Lymphocytes % 13.8 02/18/20 07:00 Monocytes % 13.8 02/18/20 07:00 Eosinophils % 0.1 02/18/20 07:00 Basophils % 0.1 02/18/20 07:00 Absolute Neutrophils 6.00 k/cumm (1.2-6.7) 02/18/20 07:00 Absolute Lymphocytes 1.15 k/cumm (1.2-3.4) L 02/18/20 07:00 Absolute Monocytes 1.15 k/cumm (0.11-0.7) H 02/18/20 07:00 Absolute Eosinophils 0.01 k/cumm (0.0-0.7) 02/18/20 07:00 Absolute Basophils 0.01 k/cumm (0.0-0.2) 02/18/20 07:00 Sodium 134 mmol/L (136-145) L 02/18/20 07:00 Potassium 4.2 mmol/L (3.5-5.1) 02/18/20 07:00 Chloride 102 mmol/L (98-107) 02/18/20 07:00 Carbon Dioxide 25.3 mmol/L (21.0-32.0) 02/18/20 07:00 Anion Gap 6.7 mmol/L (3-11) 02/18/20 07:00 BUN 17 mg/dL (7-18) 02/18/20 07:00 Creatinine 0.82 mg/dL (0.55-1.02) 02/18/20 07:00 Estimated GFR/1.73 m2 >= 60.00 (mL/min/1.73m2) 02/18/20 07:00 Glucose 112 mg/dL (74-106) H 02/18/20 07:00 Hemoglobin A1c 5.7 % (3.8-5.6) H 02/18/20 07:00 Calcium 7.8 mg/dL (8.5-10.1) L 02/18/20 07:00 Magnesium 1.3 mg/dL (1.8-2.4) L 02/18/20 07:00 Ferritin 21 ng/mL (8-252) 02/18/20 07:00 NT-Pro-B Natriuret Pep Cancelled 02/17/20 19:11 Patient ABO/Rh O Positive 02/17/20 10:32 Antibody Screen Negative 02/17/20 10:32
[2020-02-18] MEDS: Cholecalciferol (Vitamin D3) 1,000 UNIT TAB 5000 UNITS PO (08:09)
[2020-02-18] MEDS: Clopidogrel 75 MG TAB PO (08:09)
[2020-02-18] MEDS: Metoprolol 50 MG TAB PO ×2 (08:09→21:05)
[2020-02-18] MEDS: Refresh PLUS Eye Drops 0.4ml OP ×4 (08:09→21:04)
[2020-02-18] MEDS: metFORMIN 500 MG TAB 1000 MG PO ×2 (08:09→16:49)
[2020-02-18] MEDS: Pantoprazole 40 MG TABCR PO (08:09)
[2020-02-18] MEDS: Lisinopril 10 MG TAB PO (08:09)
[2020-02-18 08:10] LABS: Folate 18.9 ng/mL (8.6-20.0); Vitamin B12 632 pg/mL (193-986)
[2020-02-18] MEDS: Venlafaxine 75 MG TAB 112.5 MG PO ×2 (08:10→21:05)
[2020-02-18] MEDS: busPIRone 5 MG TAB 10 MG PO ×2 (08:10→21:05)
--- NOTE | 2020-02-18 09:05 | IN_ITS ---
Date of service: 02/18/20 Time of Service: 09:05 PT Notes Visit Reasons: (R) DISTAL FEMUR FX Physical Therapy Inpatient Initial Evaluation Date: 02/17/2020 Referring Doctor: Dk Valentine MD PT CONSULT: S/P ortho surgery Precautions: Fall. Standard. WBAT on R LE. Knee immobilizer on right LE when out of bed. Patient Profile/Admitting Diagnosis: Patient is a 65-year-old female resident [facility] who slipped and fell during a toileting activity landing on her right lower extremity resulting to a closed comminuted fracture of the right distal femoral shaft with posterior medial displacement of distal major fracture fragment. She is status post retrograde intramedullary nailing of the right femur on postoperative day 1. PMHX: Medical History Anemia (Acute 05/04/18) CAD (coronary artery disease) (Chronic) Carpal tunnel syndrome (Resolved) Cholelithiasis (Acute) COPD (chronic obstructive pulmonary disease) (Chronic) Depressive disorder (Chronic 02/25/13) Diabetes mellitus (Resolved 09/28/12) Fecal incontinence (Chronic) Gastroesophageal reflux disease (Acute 05/06/13) History of alcohol abuse (Chronic) Hyperlipidemia (Chronic) Hypertension (Chronic) Hypomagnesemia (Acute) Multinodular goiter (Chronic) Multiple sclerosis (Chronic) Secondary progressive; off DMT Myocardial infarction (Acute 06/12/11) stents x 2 Neurogenic bladder (Acute 07/09/16) senior living resident (Chronic) -[facility] Obesity (Acute) Palliative care patient (Chronic) Pedal edema (Acute) Peripheral neuropathy (Acute 01/05/15) diabetic Poorly controlled type 2 diabetes mellitus (Acute) Restless leg syndrome (Acute) Stroke (Acute 01/05/15) R hemiparesis Thrombocytopenia (Acute 05/04/18) Urinary incontinence (Chronic) Surgical History Bilateral salpingectomy with oophorectomy section Open Carpal Tunnel release (06/21/11) [facility] [place] S/P cubital tunnel release (Acute) Stent placement Social History/Home Situation: Patient is currently a long-term resident of [facility] and has previously been in a snf. At the SNF, patient's main mode of mobility is through the use of a wheelchair and required assistance of 2 people for all transfers. She has been non-ambulatory for the past 2 to 3 years. She requires assistance with all bathing and dress ing tasks and is a set up for self-feeding. Equipment Owned/DME: Wheelchair Subjective: Patient reports pain on the right LE at 6/10 at rest and up to 8/10 with transfers. She states that she did not have a restful sleep. She denies headache, chest pain, and dizziness during transfer activity. Objective: General Observation: Knee immobilizer on right LE. IV in the left UE. Hoff catheter in place. Mental Status: Alert and oriented x4 Pain: 6/10 at rest. 7?8/10 with movement ROM: Right Upper Extremity: Shoulder Flexion allows up to 40 degrees. Shoulder abduction allows up to 20 degrees. Elbow flexion allows up to 10 degrees. Wrist flexion about 5 degrees. Opening and closing of hand absent. Left Upper Extremity: Shoulder Flexion WFL. Shoulder abduction WFL. Elbow flexion WFL. Wrist flexion WFL. Opening and closing of hand WFL. Right Lower Extremity: NT Left Lower Extremity: Hip flexion WFL. Hip abduction WFL. Knee flexion WFL. Ankle dorsiflexion WFL. Ankle plantarflexion WFL. Strength: Right Upper Extremity: Shoulder flexors 3-/5. Shoulder abductors 3-/5. Elbow flexors 2-/5. Elbow extensors 1/5. Ornamental Rail Installer absent. Left Upper Extremity: Shoulder flexors 4/5. Shoulder abductors 4/5. Elbow flexors 4/5. Elbow extensors 4/5. Ornamental Rail Installer strong. Right Lower Extremity: NT Left Lower Extremity:Hip flexors 4-/5. Hip abductors 4-/5. Knee flexors 4-/5. Knee extensors 4-/5. Ankle dorsiflexors 4-/5. Ankle plantarflexors 4-/5. Sensation: Diminished as to pain and pressure on right lower extremity. Intact on the left. Bed Mobility/Transfers: Rolling moderate assist of 2 Supine to sit moderate assist of 2 with HOB elevated to 45 degrees Sit to supine moderate assist of 2 with HOB elevated to 45 degrees Sit to stand max assist of 2 and minimal assist of 1 with maximal verbal cueing for correct technique Stand to sit max assist of 2 and minimal assist of 1 with maximal verbal cueing for correct technique Bed to chair max assist of 2 and minimal assist of 1 with maximal verbal cueing for correct technique Gait: Unable to perform. Balance: Static Sitting: Good Dynamic Sitting: Fair Static Standing: Unable Dynamic Standing: Unable Special Tests: Mobility Limitations Standardized Measure [facility] AM-PAC 6 clicks Basic Mobility Inpatient Short Form: Raw Score: 10 CMS Score: 77% deficit Informed Consent/Education: Patient instructed in purpose of PT consult and plan of care. Assessment: Need for extensive assist for all bed mobility and transfer tasks. Non-ambulatory. Significantly impaired static standing balance. Surgery side same as the side with longstanding hemiparesis compounding patient's ability to transfer. Patient is a 65-year-old female resident of [facility] who slipped and fell landing on her right lower extremity resulting to a closed comminuted fracture of the right distal femoral shaft with posterior medial displacement of distal major fracture fragment. She is status post retrograde intramedullary nailing of the right femur on postoperative day 1. Patient presents with clinical signs and symptoms consistent with current/admitting diagnoses that have resulted to mobility limitations, gait instability, generalized weakness, and impairment of motor control as demonstrated by the following impairment level findings: 1. Decreased strength to right LE major muscle groups; long standing right- sided hemiparesis 2. Impaired sitting balance 3. Absent significantly diminished standing balance 3. Impaired activity tolerance 4. Limitation of joint range of motion in right UE/LE due to longstanding right-sided hemiparesis Impairments are contributing to the following functional limitations: 1. Dependent bed mobility skills 2. Increased dependence with transfers 3. Inability to safely ambulate without assistive device and physical assistance 4. Increase completion time for mobility ADL performance 5. Increased fall risk 6. Inability to negotiate steps alone safely Patient is assessed as a [id number] high complexity based on the following: History: 65-year-old female with impairment level findings, functional limitations, and past medical history as indicated above Examination: Demonstrable impairment in strength, balance, and range of motion with underlying impairments and functional limitations as documented above Presentation:Evolving Decision Makin high complexity Goals: Goals X1 week 1. Supine-Sit minimal assist 2. Sit-Supine minimal assist 3. Sit-Stand minimal assist 4. Stand-Sit minimal assist of 2 5. Bed-Chair minimal assist of 2 6. Chair-Bed minimal assist of 2 7. Good static and dynamic standing balance/tolerance Plan of Care/Treatment Plan: 1-2x/day, 7 days/week x 1 week. Initiate Physical Therapy intervention for strengthening, bed mobility, transfers, gait, stairs, balance training, use of assistive device. DISCHARGE RECOMMENDATIONS: Return to prior shelter facility for continued skilled physical therapy services in order to progress mobility level, strength, and balance in preparation for a safe discharge to home. TREATMENT CODE/TIME: 63873 x 31 minutes beginning at 9:05 AM. Thank you very much for this referral. Dennise Castillo PT, DPT, CLT [facility] [place], [place]
[2020-02-18] MEDS: Ferrous Gluconate 324 MG TAB PO (09:19)
[2020-02-18] MEDS: MAGNESIUM SULFATE 4 GM/100 ML BAG IVPB (09:19)
[2020-02-18] MEDS: Magnesium Gluconate 500 MG TAB PO (11:28)
[2020-02-18] MEDS: Milk of Magnesia 30 ML CUP PO (11:28)
[2020-02-18 12:04] VITALS: BP 127/75; PULSE 72; RESP 15; TEMP 36.6; O2SAT 98
[2020-02-18] MEDS: diphenhydrAMINE 25 MG CAP PO (12:58)
[2020-02-18] MEDS: Insulin Aspart 300 UNITS/3 ML PEN SC ×2 (12:58→22:05)
--- NOTE | 2020-02-18 14:02 | DM INPTCON_ITS ---
Date of service: 02/18/20 Time of Service: 14:03 Diabetes Inpatient Consult DESCRIPTION/ASSESSMENT: 65 year old female admitted with right femur fracture/s/p closure. PMH: hemiplegia, chronic anemia, obesity. resident of [facility]. Estimated Needs: 1500 kcal, 60 g protein, 1600 ml fluid. Received Sales Promotion Coordinator Consult to review diet and blood sugar control. Yuniel takes metformin 1000 mg BID and follows diabetic diet at SNF. Recent A1C: 5.7%, FS: 112 mg/dl today. Diabetes currently well controlled on current medication. Reviewed principles of 1500 kcal diabetic diet with optimal meal and snack ideas available at the rehab. Provided Yuniel with diabetes education maxwell hernandez and contact information and encouraged her to reach out if she has questions/concerns. Not at risk for nutritional decline at this time. INTERVENTION: Diabetes Education Diabetes Diet PLAN: yuniel will continue to follow 1500 kcal diabetic diet Time Spent in Nutritional Counseling and Treatment: 15 min spent face to face
--- NOTE | 2020-02-18 14:29 | PGE_ITS ---
Date of Service Date of service: 02/18/20 Time of Service: 14:29 Assessment and Plan Assessment and plan (1) Closed fracture of femur, distal end: Status: Acute Assessment and plan: Status post ORIF right distal femur fracture postop day #1. She is doing well postoperatively. As she is hemiplegic on her right side there is really no therapy to rehab from her right femur fracture. I expect that if her blood count stays stable overnight she will be discharged to the half-way over the weekend. Further management per orthopedic service. Qualifiers: Encounter type: subsequent encounter Fracture morphology: unspecified fracture morphology Laterality: right Fracture healing: with delayed healing Qualified Code(s): S72.401G - Unspecified fracture of lower end of right femur, subsequent encounter for closed fracture with delayed healing (2) Hypertension: Status: Chronic Assessment and plan: BP is well controlled. Continue her current lisinopril. She has not exhibited any hypotension Qualifiers: Hypertension type: essential hypertension Qualified Code(s): I10 - Essential (primary) hypertension (3) CAD (coronary artery disease): Status: Chronic Assessment and plan: No symptoms in spite of the stress of surgery and her anemia. Qualifiers: Coronary Disease-Associated Artery/Lesion type: [place] artery [place] vs. transplanted heart: [place] heart Associated angina: without angina Qualified Code(s): I25.10 - Atherosclerotic heart disease of [place] coronary art candido without angina pectoris (4) DM type 2 (diabetes mellitus, type 2): Status: Acute Assessment and plan: Glycohemoglobin A1c is 5.7% indicative there are diabetes mellitus is well controlled in spite of the fact that she is not been on any medications. This raises into question her diagnosis in the first place Qualifiers: Diabetes mellitus usp insulin use: without usp use Diabetes mellitus complication status: with neurologic complications Diabetes mellitus complication detail: with polyneuropathy Qualified Code(s): E11.42 - Type 2 diabetes mellitus with diabetic polyneuropathy (5) Hypomagnesemia: Status: Acute Assessment and plan: I gave her a bolus of magnesium sulfate this morning and put her on magnesium supplementation. We will recheck her labs in the morning (6) Anemia: Status: Acute Assessment and plan: She has an iron deficiency anemia which currently has not been treated. I will start her on venofer 200 mg today and another 200 mg dose tomorrow. We will monitor her blood counts. As long as her hemoglobin stays above 7 g I would not transfuse her unless she becomes symptomatic. Qualifiers: Anemia type: unspecified type Qualified Code(s): D64.9 - Anemia, unspecified (7) Gastroesophageal reflux disease: Status: Acute Assessment and plan: Resume her Protonix. Qualifiers: Esophagitis presence: esophagitis presence not specified Qualified Cod e(s): K21.9 - Gastro-esophageal reflux disease without esophagitis (8) DVT prophylaxis: Status: Acute Assessment and plan: Because of her thrombocytopenia she would not be a good candidate for enoxaparin. I would recommend continuing Plavix use SCDs and CHUCKY hose. Subjective Subjective Interval history since last seen: Postop day #1 right femoral intramedullary nailing to repair distal right femur fracture. Patient is doing well she has no acute complaints no dyspnea. Pain is reasonably controlled Patient is slightly more anemic this morning with a hemoglobin of 7 g. She has a chronic iron deficiency anemia. Patient indicated me that she cannot tolerate oral iron supplementation. I had ordered iron supplementation this morning but will discontinue oral supplementation in favor of venofer. Dr. Valentine and I discussed whether to transfuse her or not but since she is asymptomatic we will just repeat her H&H this evening. If her hemoglobin drops below 7 g then we will give her a unit of blood. She is not showing any signs of visible bleeding. There is minimal blood loss with the procedure. Sounds like her anemia has been difficult to control she says she has had transfusions in the past and she is not averse to having a transfusion if it is needed. She has been intolerant of oral iron. I told her she is probably a candidate for periodic iron infusions. Exam Narrative Exam Narrative: Patient is doing well she has no acute complaints no dyspnea. Pain is reasonably controlled. She is sitting up in her chair having completed her lunch she is sitting there watching TV. Lungs are clear to auscultation. Heart is regular rate and rhythm. Abdomen is soft nondistended with normal active bowel sounds. Hoff catheter is draining dark yellow urine. Objective Objective Clinical Data: Abnormal lab results 02/18/20 02/18/20 02/18/20 Range/Units 07:00 07:00 07:00 RBC 2.75 L (4.00-5.20) m/cumm Hgb 7.2 L (12.0-15.5) g/dL Hct 23.6 L (36.0-46.0) % MCH 26.2 L (27.0-33.0) pg MCHC 30.5 L (32.0-36.0) g/dL RDW 20.4 H (11.7-14.6) % Plt Count 125 L (130-400) x1000/uL MPV 11.3 H (8.0-11.0) fL Absolute Lymphocytes 1.15 L (1.2-3.4) k/cumm Absolute Monocytes 1.15 H (0.11-0.7) k/cumm Sodium 134 L (136-145) mmol/L Glucose 112 H (74-106) mg/dL Hemoglobin A1c 5.7 H (3.8-5.6) % Calcium 7.8 L (8.5-10.1) mg/dL Magnesium 1.3 L (1.8-2.4) mg/dL Iron (50-170) ug/dL Transferrin % Sat (15-50) % 02/18/20 Range/Units 07:00 RBC (4.00-5.20) m/cumm Hgb (12.0-15.5) g/dL Hct (36.0-46.0) % MCH (27.0-33.0) pg MCHC (32.0-36.0) g/dL RDW (11.7-14.6) % Plt Count (130-400) x1000/uL MPV (8.0-11.0) fL Absolute Lymphocytes (1.2-3.4) k/cumm Absolute Monocytes (0.11-0.7) k/cumm Sodium (136-145) mmol/L Glucose (74-106) mg/dL Hemoglobin A1c (3.8-5.6) % Calcium (8.5-10.1) mg/dL Magnesium (1.8-2.4) mg/dL Iron 24 L (50-170) ug/dL Transferrin % Sat 8 L (15-50) % Vital Signs Temperature 36.6 C 02/18/20 12:04 Temperature Source Tympanic 02/18/20 12:04 Pulse 72 02/18/20 12:04 Pulse Rhythm Regular 02/18/20 11:02 Respiratory Rate 15 02/18/20 12:04 Respiratory Effort Non-Labored 02/18/20 11:02 Respiratory Depth Normal 02/18/20 11:02 Respiratory Pattern Normal 02/18/20 11:02 Blood Pressure 127/75 02/18/20 12:04 Pulse Oximetry 98 02/18/20 12:04 Respiratory End-tidal CO2 27 02/17/20 15:30 Oxygen Delivery Method Room Air 02/18/20 12:04 Oxygen Flow Rate 0 02/18/20 12:04 Pain Level 6 02/18/20 12:04 Intake & Output 02/17/20 02/18/20 02/18/20 23:59 11:59 23:59 Intake Total 1018 / 1018 1270 / 1770 500 / 1770 Output Total 350 / 350 1050 / 1050 Balance 668 / 668 220 / 720 500 / 720 Intake: IV 1018 / 1018 1000 / 1000 Oral 270 / 770 500 / 770 Output: Urine 300 / 300 1050 / 1050 Estimated Blood Loss 50 / 50 Other: Urine Color [place] Dark Leana Urine Appearance Clear Clear Urine Odor None Comment VOIDED BSC Emesis Description None Voiding Methods Bedside Commode Laboratory Results WBC 8.34 k/cumm (4.4-10.8) 02/18/20 07:00 RBC 2.75 m/cumm (4.00-5.20) L 02/18/20 07:00 Hgb 7.2 g/dL (12.0-15.5) L 02/18/20 07:00 Hct 23.6 % (36.0-46.0) L 02/18/20 07:00 MCV 85.8 fL (80-95) 02/18/20 07:00 MCH 26.2 pg (27.0-33.0) L 02/18/20 07:00 MCHC 30.5 g/dL (32.0-36.0) L 02/18/20 07:00 RDW 20.4 % (11.7-14.6) H 02/18/20 07:00 Plt Count 125 x1000/uL (130-400) L 02/18/20 07:00 MPV 11.3 fL (8.0-11.0) H 02/18/20 07:00 Immature Gran % 0.2 % 02/18/20 07:00 Neutrophils % 72.0 02/18/20 07:00 Lymphocytes % 13.8 02/18/20 07:00 Monocytes % 13.8 02/18/20 07:00 Eosinophils % 0.1 02/18/20 07:00 Basophils % 0.1 02/18/20 07:00 Absolute Neutrophils 6.00 k/cumm (1.2-6.7) 02/18/20 07:00 Absolute Lymphocytes 1.15 k/cumm (1.2-3.4) L 02/18/20 07:00 Absolute Monocytes 1.15 k/cumm (0.11-0.7) H 02/18/20 07:00 Absolute Eosinophils 0.01 k/cumm (0.0-0.7) 02/18/20 07:00 Absolute Basophils 0.01 k/cumm (0.0-0.2) 02/18/20 07:00 Sodium 134 mmol/L (136-145) L 02/18/20 07:00 Potassium 4.2 mmol/L (3.5-5.1) 02/18/20 07:00 Chloride 102 mmol/L (98-107) 02/18/20 07:00 Carbon Dioxide 25.3 mmol/L (21.0-32.0) 02/18/20 07:00 Anion Gap 6.7 mmol/L (3-11) 02/18/20 07:00 BUN 17 mg/dL (7-18) 02/18/20 07:00 Creatinine 0.82 mg/dL (0.55-1.02) 02/18/20 07:00 Estimated GFR/1.73 m2 >= 60.00 (mL/min/1.73m2) 02/18/20 07:00 Glucose 112 mg/dL (74-106) H 02/18/20 07:00 Hemoglobin A1c 5.7 % (3.8-5.6) H 02/18/20 07:00 Calcium 7.8 mg/dL (8.5-10.1) L 02/18/20 07:00 Magnesium 1.3 mg/dL (1.8-2.4) L 02/18/20 07:00 Iron 24 ug/dL (50-170) L 02/18/20 07:00 TIBC 320 ug/dL (250-450) 02/18/20 07:00 Transferrin % Sat 8 % (15-50) L 02/18/20 07:00 Ferritin 21 ng/mL (8-252) 02/18/20 07:00 NT-Pro-B Natriuret Pep Cancelled 02/17/20 19:11 Vitamin B12 632 pg/mL (193-986) 02/18/20 07:00 Folate 18.9 ng/mL (8.6-20.0) 02/18/20 07:00 Patient ABO/Rh O Positive 02/17/20 10:32 Antibody Screen Negative 02/17/20 10:32
[2020-02-18] MEDS: IRON SUCROSE COMPLEX 200 MG in Normal Saline 100 ML 400 MG IVPB (14:52)
--- NOTE | 2020-02-18 15:06 | PGE_ITS ---
Date of Service Date of service: 02/18/20 Time of Service: 15:06 Objective Objective Clinical Data: Abnormal lab results 02/18/20 02/18/20 02/18/20 Range/Units 07:00 07:00 07:00 RBC 2.75 L (4.00-5.20) m/cumm Hgb 7.2 L (12.0-15.5) g/dL Hct 23.6 L (36.0-46.0) % MCH 26.2 L (27.0-33.0) pg MCHC 30.5 L (32.0-36.0) g/dL RDW 20.4 H (11.7-14.6) % Plt Count 125 L (130-400) x1000/uL MPV 11.3 H (8.0-11.0) fL Absolute Lymphocytes 1.15 L (1.2-3.4) k/cumm Absolute Monocytes 1.15 H (0.11-0.7) k/cumm Sodium 134 L (136-145) mmol/L Glucose 112 H (74-106) mg/dL Hemoglobin A1c 5.7 H (3.8-5.6) % Calcium 7.8 L (8.5-10.1) mg/dL Magnesium 1.3 L (1.8-2.4) mg/dL Iron (50-170) ug/dL Transferrin % Sat (15-50) % 02/18/20 Range/Units 07:00 RBC (4.00-5.20) m/cumm Hgb (12.0-15.5) g/dL Hct (36.0-46.0) % MCH (27.0-33.0) pg MCHC (32.0-36.0) g/dL RDW (11.7-14.6) % Plt Count (130-400) x1000/uL MPV (8.0-11.0) fL Absolute Lymphocytes (1.2-3.4) k/cumm Absolute Monocytes (0.11-0.7) k/cumm Sodium (136-145) mmol/L Glucose (74-106) mg/dL Hemoglobin A1c (3.8-5.6) % Calcium (8.5-10.1) mg/dL Magnesium (1.8-2.4) mg/dL Iron 24 L (50-170) ug/dL Transferrin % Sat 8 L (15-50) % Vital Signs Temperature 36.6 C 02/18/20 12:04 Temperature Source Tympanic 02/18/20 12:04 Pulse 72 02/18/20 12:04 Pulse Rhythm Regular 02/18/20 11:02 Respiratory Rate 15 02/18/20 12:04 Respiratory Effort Non-Labored 02/18/20 11:02 Respiratory Depth Normal 02/18/20 11:02 Respiratory Pattern Normal 02/18/20 11:02 Blood Pressure 127/75 02/18/20 12:04 Pulse Oximetry 98 02/18/20 12:04 Respiratory End-tidal CO2 27 02/17/20 15:30 Oxygen Delivery Method Room Air 02/18/20 12:04 Oxygen Flow Rate 0 02/18/20 12:04 Pain Level 6 02/18/20 12:04 Intake & Output 02/17/20 02/18/20 02/18/20 23:59 11:59 23:59 Intake Total 1018 / 1018 1270 / 1770 500 / 1770 Output Total 350 / 350 1050 / 1050 Balance 668 / 668 220 / 720 500 / 720 Intake: IV 1018 / 1018 1000 / 1000 Oral 270 / 770 500 / 770 Output: Urine 300 / 300 1050 / 1050 Estimated Blood Loss 50 / 50 Other: Urine Color [place] Dark Leana Urine Appearance Clear Clear Urine Odor None Comment VOIDED BSC Emesis Description None Voiding Methods Bedside Commode Laboratory Results WBC 8.34 k/cumm (4.4-10.8) 02/18/20 07:00 RBC 2.75 m/cumm (4.00-5.20) L 02/18/20 07:00 Hgb 7.2 g/dL (12.0-15.5) L 02/18/20 07:00 Hct 23.6 % (36.0-46.0) L 02/18/20 07:00 MCV 85.8 fL (80-95) 02/18/20 07:00 MCH 26.2 pg (27.0-33.0) L 02/18/20 07:00 MCHC 30.5 g/dL (32.0-36.0) L 02/18/20 07:00 RDW 20.4 % (11.7-14.6) H 02/18/20 07:00 Plt Count 125 x1000/uL (130-400) L 02/18/20 07:00 MPV 11.3 fL (8.0-11.0) H 02/18/20 07:00 Immature Gran % 0.2 % 02/18/20 07:00 Neutrophils % 72.0 02/18/20 07:00 Lymphocytes % 13.8 02/18/20 07:00 Monocytes % 13.8 02/18/20 07:00 Eosinophils % 0.1 02/18/20 07:00 Basophils % 0.1 02/18/20 07:00 Absolute Neutrophils 6.00 k/cumm (1.2-6.7) 02/18/20 07:00 Absolute Lymphocytes 1.15 k/cumm (1.2-3.4) L 02/18/20 07:00 Absolute Monocytes 1.15 k/cumm (0.11-0.7) H 02/18/20 07:00 Absolute Eosinophils 0.01 k/cumm (0.0-0.7) 02/18/20 07:00 Absolute Basophils 0.01 k/cumm (0.0-0.2) 02/18/20 07:00 Sodium 134 mmol/L (136-145) L 02/18/20 07:00 Potassium 4.2 mmol/L (3.5-5.1) 02/18/20 07:00 Chloride 102 mmol/L (98-107) 02/18/20 07:00 Carbon Dioxide 25.3 mmol/L (21.0-32.0) 02/18/20 07:00 Anion Gap 6.7 mmol/L (3-11) 02/18/20 07:00 BUN 17 mg/dL (7-18) 02/18/20 07:00 Creatinine 0.82 mg/dL (0.55-1.02) 02/18/20 07:00 Estimated GFR/1.73 m2 >= 60.00 (mL/min/1.73m2) 02/18/20 07:00 Glucose 112 mg/dL (74-106) H 02/18/20 07:00 Hemoglobin A1c 5.7 % (3.8-5.6) H 02/18/20 07:00 Calcium 7.8 mg/dL (8.5-10.1) L 02/18/20 07:00 Magnesium 1.3 mg/dL (1.8-2.4) L 02/18/20 07:00 Iron 24 ug/dL (50-170) L 02/18/20 07:00 TIBC 320 ug/dL (250-450) 02/18/20 07:00 Transferrin % Sat 8 % (15-50) L 02/18/20 07:00 Ferritin 21 ng/mL (8-252) 02/18/20 07:00 NT-Pro-B Natriuret Pep Cancelled 02/17/20 19:11 Vitamin B12 632 pg/mL (193-986) 02/18/20 07:00 Folate 18.9 ng/mL (8.6-20.0) 02/18/20 07:00 Patient ABO/Rh O Positive 02/17/20 10:32 Antibody Screen Negative 02/17/20 10:32
[2020-02-18 15:29] VITALS: BP 107/66; PULSE 63; RESP 19; TEMP 36.6; O2SAT 95
[2020-02-18 16:34] LABS: HCT 24.9 % (36.0-46.0); HGB 7.6 g/dL (12.0-15.5)
--- NOTE | 2020-02-18 17:06 | INITIAL_ITS ---
- If Service Date Differs Date of service: 02/18/20 Time of Service: 17:06 Care Management Initial Assess REASON FOR HOSPITALIZATION:: R Distal Femur Fx PAST MEDICAL HISTORY/PAST SURGICAL HISTORY:: Medical History . Anemia (Acute 05/04/18). CAD (coronary artery disease) (Chronic). Carpal tunnel syndrome (Resolved). Cholelithiasis (Acute). COPD (chronic obstructive pulmonary disease) (Chronic). Depressive disorder (Chronic 02/25/13). Diabetes mellitus (Resolved 09/28/12). Fecal incontinence (Chronic). Gastroesophageal reflux disease (Acute 05/06/13). History of alcohol abuse (Chronic). Hyperlipidemia (Chronic). Hypertension (Chronic). Hypomagnesemia (Acute). Multinodular goiter (Chronic). Multiple sclerosis (Chronic). Secondary progressive; off DMT. Myocardial infarction (Acute 06/12/11). stents x 2. Neurogenic bladder (Acute 07/09/16). [facility] resident (Chronic). -[facility]. Obesity (Acute). Palliative care patient (Chronic). Pedal edema (Acute). Peripheral neuropathy (Acute 01/05/15). diabetic. Poorly controlled type 2 diabetes mellitus (Acute). Restless leg syndrome (Acute). Stroke (Acute 01/05/15). R hemiparesis. Thrombocytopenia (Acute 05/04/18). Urinary incontinence (Chronic). Surgical History . Bilateral salpingectomy with oophorectomy. section. Open Carpal Tunnel release (06/21/11). [facility] [place]. S/P cubital tunnel release (Acute). Stent placement PREVIOUS FUNCTIONAL STATUS/SOCIAL/FAMILY SUPPORTS:: Azucena is currently a resident at [facility]. 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 Her health has declined over the years due to her MS, and she has become increasingly weak. She previously lived in an [facility] home, but now lives at [facility]. She requires assistance with ADL's and ambulation. CURRENT FUNCTIONAL STATUS:: Azucena was sitting up in her chair having lunch when met with her. She stated that [facility] is ok, but her roomate likes the window shades down, so she does not often get to see the sunlight. She was happy to have the shades up today with the sun shining in. CM asked how her pain levels were, which she stated were at her baseline. She reported that due to her progressive MS, she is constantly in pain. Azucena is a Palliative Care patient, but declined a visit at this time. She stated that she will return to &, although it is not her first choice, she understands that it is the level of care that is appropriate. CM will continue to follow. ADVANCE DIRECTIVES:: On file, Sebastian Schaeffer listed as agent. Has patient been provided with information about the portal?: No Did the patient sign up for the portal?: No CODE STATUS:: DNR/DNI INSURANCE COVERAGE / FINANCIAL ISSUES:: [facility]- [employer] Highest needs, [facility] CURRENT HOME/COMMUNITY SERVICES/EQUIPMENT:: Azucena currently lives at [facility] who provides her ADL care. She has a w/c. She also has a community services officer for [employer]. PRIMARY CARE PHYSICIAN:: Ambrosio Elias POTENTIAL DISCHARGE NEEDS:: Negative Covid 19 test and screening tool, required by facility. PATIENT/FAMILY EDUCATION NEEDS:: Review discharge instructions with pt and facility, discussion of goals of care. ANTICIPATED BARRIERS TO DISCHARGE:: None identified at this time. TRANSPORTATION:: [facility] w/c uri PLAN:: Azucena will return to the [facility] once medically cleared. Her Covid 19 test was requested by CM, as it is required by the facility upon discharge. She will be transported by [facility] w/c van. She is agreeable to return. CM will continue to follow.
--- NOTE | 2020-02-18 17:24 | PT.INNT ---
Date of service: 02/18/20 Time of Service: 17:24 PT Notes Visit Reasons: (R) DISTAL FEMUR FX Patient was not available for a second session in the afternoon when this PT came in to visit. She was currently working n her supper. Nursing staff was instructed about needing the use of STEDY lift to transfer patient back to bed after supper for safety of patient and of assisting staff. Will villalpando on seeing patient tomorrow BID as planned.
[2020-02-18 19:03] LABS: HCT 24.1 % (36.0-46.0); HGB 7.4 g/dL (12.0-15.5)
[2020-02-18 20:00] VITALS: BP 117/63; PULSE 67; RESP 20; TEMP 36.5; O2SAT 95
[2020-02-18 23:15] VITALS: BP 109/61; PULSE 63; RESP 16; TEMP 36.5; O2SAT 95
[2020-02-19 03:45] VITALS: BP 105/57; PULSE 64; RESP 16; TEMP 36.4; O2SAT 95
[2020-02-19] MEDS: oxyCODONE 5 MG TAB PO ×3 (04:06→20:42)
[2020-02-19 06:54] LABS: Anion Gap 6.5 mmol/L (3-11); BUN 15 mg/dL (7-18); CO2 25.5 mmol/L (21.0-32.0); CREATININE 0.79 mg/dL (0.55-1.02); Calcium 7.8 mg/dL (8.5-10.1); Chloride 105 mmol/L (98-107); Glucose 112 mg/dL (74-106); Magnesium 1.7 mg/dL (1.8-2.4); Potassium 4.3 mmol/L (3.5-5.1); Sodium 137 mmol/L (136-145)
[2020-02-19 07:04] LABS: HCT 23.4 % (36.0-46.0)
[2020-02-19 07:15] VITALS: BP 104/64; PULSE 59; RESP 16; TEMP 36.4; O2SAT 92
[2020-02-19] MEDS: Mometasone 220 MCG 14 DOSE INHALER 2 PUFF IH ×2 (07:59→20:41)
[2020-02-19] MEDS: Lisinopril 10 MG TAB PO (08:05)
[2020-02-19] MEDS: Metoprolol 50 MG TAB PO ×3 (08:05→20:42)
[2020-02-19] MEDS: Clopidogrel 75 MG TAB PO (08:06)
[2020-02-19] MEDS: busPIRone 5 MG TAB 10 MG PO ×2 (08:06→20:43)
[2020-02-19] MEDS: Pantoprazole 40 MG TABCR PO (08:06)
[2020-02-19] MEDS: metFORMIN 500 MG TAB 1000 MG PO ×2 (08:06→16:37)
[2020-02-19] MEDS: Refresh PLUS Eye Drops 0.4ml OP ×4 (08:06→20:43)
[2020-02-19] MEDS: Venlafaxine 75 MG TAB 112.5 MG PO ×2 (08:06→20:42)
[2020-02-19] MEDS: Normal Saline Flush 10 ML SYR IV ×2 (08:07→20:44)
[2020-02-19] MEDS: IRON SUCROSE COMPLEX 200 MG in Normal Saline 100 ML 400 MG IVPB (08:38)
[2020-02-19] MEDS: MAGNESIUM SULFATE 2 GM/50 ML BAG IVPB (09:11)
--- NOTE | 2020-02-19 09:54 | CMPROGNOTE_ITS ---
- If Service Date Differs Date of service: 02/19/20 Time of Service: 09:54 Care Management Progress Note S/O: Azucena was reviewed at interdisciplinary rounds. CM contacted admissions at [facility], who stated that a Covid negative test will be required prior to her returning. CM discussed this with the MD, who ordered the test. Anticipate she will return to [facility] on Friday. CM will continue to follow. A: Azucena is a 65 year old female admitted to [facility] on 02/17/20 with a R distal femux fx. P: Anticipate Azucena will return to [facility], where she resides on Friday. Her Covid test is pending. She will transport via [facility] w/[facility] van. She is agreeable to returning. CM will continue to follow.
--- NOTE | 2020-02-19 09:59 | W.PM.PROGNOT ---
Date of Service Date of service: 02/19/20 Time of Service: 09:59 Assessment and Plan Assessment and plan (1) Closed fracture of femur, distal end: Status: Acute Assessment and plan: Azucena is a 65-year-old status post intramedullary nail fixation of a right distal femoral shaft fracture. She seems to be doing well. I try to remind Hayden that prior to surgery she could not move it all in the bed while she is doing so quite easily now, or at least with less pain. It will take some time for her pain to completely subside from the right leg as the fracture still is present it is simply stabilized with the intramedullary device. She does mobilize with only assistance only to pivot transfer. I do think she is nearing this point where she could return to the [facility]. Unfortunately, they will require repeat COVID-19 test and we will obtain that today. Hopefully, she will be able to discharge to [facility] on Friday. Continue with transfers as tolerated. She should use the knee immobilizer when trying to transfer. DVT prophylaxis will be aspirin and Plavix. Qualifiers: Encounter type: subsequent encounter Fracture morphology: unspecified fracture morphology Laterality: right Fracture healing: with delayed healing Qualified Code(s): S72.401G - Unspecified fracture of lower end of right femur, subsequent encounter for closed fracture with delayed healing (2) Acute blood loss anemia: Status: Acute Assessment and plan: Hayden has a hemoglobin this morning of 7. Her baseline is in the eights. She is asymptomatic. She is low demand. Therefore, especially in light of known blood shortages, I will continue to follow this. I will check hemoglobin tomorrow. If it does drop below 6 I would transfuse. Otherwise, I would basis on symptoms as she is at low risk for continued bleeding or for demand pathologies. Subjective Subjective Interval history since last seen: Azucena has no new complaints today. She denies lightheadedness, chest pain, palpitations, shortness of breath. She still continues to have struggles with trying to mobilize with physical therapy, although she was a to assist at baseline. However, she does report less pain when she sitting in bed and was trying to move in the bed. The majority of her pain is reported as being along the right thigh. She denies any new numbness or tingling. Exam Narrative Exam Narrative: Sitting up in the hospital bed eating. Resting comfortably. No acute distress. Alert oriented x3. Evaluation of the right leg does show notable edema about the thigh and the lower leg. This is slightly more than the contralateral side and slightly worse from yesterday. However, the thigh is compressible. There is very little pain to palpation. No drainage on the dressings. The right foot is held in equinus position. Gentle external and internal rotation of the right leg does not increase.. Objective Objective Clinical Data: Abnormal lab results 02/18/20 02/18/20 02/18/20 Range/Units 06:22 07:00 16:58 Hgb 7.6 L 7.2 L 7.4 L (12.0-15.5) g/dL Hct 24.9 L 23.6 L 24.1 L (36.0-46.0) % Glucose (74-106) mg/dL Calcium (8.5-10.1) mg/dL Magnesium (1.8-2.4) mg/dL 02/19/20 02/19/20 Range/Units 06:30 06:30 Hgb 7.0 L (12.0-15.5) g/dL Hct 23.4 L (36.0-46.0) % Glucose 112 H (74-106) mg/dL Calcium 7.8 L (8.5-10.1) mg/dL Magnesium 1.7 L (1.8-2.4) mg/dL Vital Signs Temperature 36.4 C L 02/19/20 07:15 Temperature Source Tympanic 02/19/20 07:15 Pulse 59 L 02/19/20 07:15 Pulse Rhythm Regular 02/19/20 04:34 Respiratory Rate 16 02/19/20 07:15 Respiratory Effort Non-Labored 02/19/20 04:34 Respiratory Depth Normal 02/19/20 04:34 Respiratory Pattern Normal 02/19/20 04:34 Blood Pressure 104/64 02/19/20 07:15 Pulse Oximetry 92 L 02/19/20 07:15 Respiratory End-tidal CO2 27 02/17/20 15:30 Oxygen Delivery Method Room Air 02/19/20 07:15 Oxygen Flow Rate 0 02/19/20 07:15 Pain Level 6 02/19/20 09:10 Intake & Output 02/18/20 02/18/2002/18/20 11:59 23:59 11:59 Intake Total 1370 / 4470 3100 / 4470 917.333 / 917.333 Output Total 105 / 2049 1000 / 0 650 / 650 Balance 320 / 2420 2100 / 2420 267.333 / 267.333 Intake: IV 1100 / 3210 2110 / 3210 917.333 / 917.333 Oral 270 / 1260 990 / 1260 Output: Urine 105 / 0 1000 / 0 650 / 650 Other: Urine Color Dark Leana Yellow Yellow Urine Appearance Clear Clear Clear Urine Odor None Comment VOIDED BSC Stool Size Moderate Stool Characteristics Formed Voiding Methods Bedside Commode Laboratory Results WBC 8.34 k/cumm (4.4-10.8) 02/18/20 07:00 RBC 2.75 m/cumm (4.00-5.20) L 02/18/20 07:00 Hgb 7.0 g/dL (12.0-15.5) L 02/19/20 06:30 Hct 23.4 % (36.0-46.0) L 02/19/20 06:30 MCV 85.8 fL (80-95) 02/18/20 07:00 MCH 26.2 pg (27.0-33.0) L 02/18/20 07:00 MCHC 30.5 g/dL (32.0-36.0) L 02/18/20 07:00 RDW 20.4 % (11.7-14.6) H 02/18/20 07:00 Plt Count 125 x1000/uL (130-400) L 02/18/20 07:00 MPV 11.3 fL (8.0-11.0) H 02/18/20 07:00 Immature Gran % 0.2 % 02/18/20 07:00 Neutrophils % 72.0 02/18/20 07:00 Lymphocytes % 13.8 02/18/20 07:00 Monocytes % 13.8 02/18/20 07:00 Eosinophils % 0.1 02/18/20 07:00 Basophils % 0.1 02/18/20 07:00 Absolute Neutrophils 6.00 k/cumm (1.2-6.7) 02/18/20 07:00 Absolute Lymphocytes 1.15 k/cumm (1.2-3.4) L 02/18/20 07:00 Absolute Monocytes 1.15 k/cumm (0.11-0.7) H 02/18/20 07:00 Absolute Eosinophils 0.01 k/cumm (0.0-0.7) 02/18/20 07:00 Absolute Basophils 0.01 k/cumm (0.0-0.2) 02/18/20 07:00 Sodium 137 mmol/L (136-145) 02/19/20 06:30 Potassium 4.3 mmol/L (3.5-5.1) 02/19/20 06:30 Chloride 105 mmol/L (98-107) 02/19/20 06:30 Carbon Dioxide 25.5 mmol/L (21.0-32.0) 02/19/20 06:30 Anion Gap 6.5 mmol/L (3-11) 02/19/20 06:30 BUN 15 mg/dL (7-18) 02/19/20 06:30 Creatinine 0.79 mg/dL (0.55-1.02) 02/19/20 06:30 Estimated GFR/1.73 m2 >= 60.00 (mL/min/1.73m2) 02/19/20 06:30 Glucose 112 mg/dL (74-106) H 02/19/20 06:30 Hemoglobin A1c 5.7 % (3.8-5.6) H 02/18/20 07:00 Calcium 7.8 mg/dL (8.5-10.1) L 02/19/20 06:30 Magnesium 1.7 mg/dL (1.8-2.4) L 02/19/20 06:30 Iron 24 ug/dL (50-170) L 02/18/20 07:00 TIBC 320 ug/dL (250-450) 02/18/20 07:00 Transferrin % Sat 8 % (15-50) L 02/18/20 07:00 Ferritin 21 ng/mL (8-252) 02/18/20 07:00 NT-Pro-B Natriuret Pep Cancelled 02/17/20 19:11 Vitamin B12 632 pg/mL (193-986) 02/18/20 07:00 Folate 18.9 ng/mL (8.6-20.0) 02/18/20 07:00 Patient ABO/Rh O Positive 02/17/20 10:32 Antibody Screen Negative 02/17/20 10:32
[2020-02-19] MEDS: Cholecalciferol (Vitamin D3) 1,000 UNIT TAB 5000 UNITS PO (10:28)
--- NOTE | 2020-02-19 11:18 | PHA.REVIEW ---
Pharmacy Admission Review - Admission Clinical Review (Last Updated 02/17/20 @ 20:03 by Richar Richmond) Acute blood loss anemia (Acute) DVT prophylaxis (Acute) Closed fracture of femur, distal end (Acute) DM type 2 (diabetes mellitus, type 2) (Acute) Gastroesophageal reflux disease (Acute 05/06/13) Anemia (Acute 05/04/18) Hypomagnesemia (Acute) duloxetine HCl [From Cymbalta] Allergy (Severe, Verified 02/17/20 10:18) iodine Allergy (Severe, Unverified 02/17/20 10:18) Other (See Comment) Penicillins Allergy (Severe, Verified 02/17/20 10:18) Anaphylaxsis insulin glargine, human recombin. a [From Lantus] Allergy (Intermediate, Verified 02/17/20 10:18) azithromycin Allergy (Unknown, Verified 02/17/20 10:18) Hives latex Allergy (Unknown, Verified 02/17/20 10:18) adhesive Allergy (Verified 02/17/20 10:18) egg Allergy (Verified 02/17/20 10:18) unknown ibuprofen [From Motrin] Allergy (Unverified 02/17/20 10:18) asthma nut - unspecified Allergy (Unverified 02/17/20 10:18) Swelling/Edema sodium hypochlorite solution Allergy (Unverified 02/17/20 10:18) enoxaparin [From Lovenox] Adverse Reaction (Mild, Unverified 02/17/20 10:18) Skin Rash paroxetine Adverse Reaction (Mild, Unverified 02/17/20 10:18) sexual dysfunction tetracycline Adverse Reaction (Mild, Unverified 02/17/20 10:18) yeast hmg co reductasse inhibitors Adverse Reaction (Uncoded 02/17/20 10:18) Height 5 ft 2 in Weight 100.108 kg - Renal Dosing Renal Dosing: BUN 15 mg/dL (7-18) 02/19/20 06:30 Creatinine 0.79 mg/dL (0.55-1.02) 02/19/20 06:30 Medications needing adjustments: Reviewed (crcl ~57ml/min) - Anticoagulation Anticoagulation: Hgb 7.0 g/dL (12.0-15.5) L 02/19/20 06:30 Hct 23.4 % (36.0-46.0) L 02/19/20 06:30 Plt Count 125 x1000/uL (130-400) L 02/18/20 07:00 Creatinine 0.79 mg/dL (0.55-1.02) 02/19/20 06:30 DVT Prohphylaxis: N/A (hg 7, Plavix, SCDs) - Opiate Usage Scheduled Bowel Reg ordered if on Opiates?: No (prn) - Relevant Labs Sodium 137 mmol/L (136-145) 02/19/20 06:30 Potassium 4.3 mmol/L (3.5-5.1) 02/19/20 06:30 Chloride 105 mmol/L (98-107) 02/19/20 06:30 Magnesium 1.7 mg/dL (1.8-2.4) L 02/19/20 06:30 Electrolytes, C-Reactive P, ESR: Reviewed (covid 19 test today pending) - DM Control DM Control: Glucose 112 mg/dL (74-106) H 02/19/20 06:30 Hemoglobin A1c 5.7 % (3.8-5.6) H 02/18/20 07:00 Finger Stick Blood Glucose 117 Finger Stick Blood Glucose 117 Insulin Dosing: Reviewed - Heart Failure/ND Heart Failure/ND: NT-Pro-B Natriuret Pep Cancelled 02/17/20 19:11 - BP Control BP Control: Blood Pressure 104/64 Blood Pressure 105/57 If elevated: N/A - Qtc Review If Elevated: N/A (426) - IV to PO Switch IV Medications: Reviewed - Current meds Current Medication Order Review: Reviewed (waiting for negative covid 19 lab result before [facility] will take pt back. probable Friday discharge)
[2020-02-19] MEDS: Lactated Ringers 1,000 ML 80 ML IV (11:30)
[2020-02-19] MEDS: Insulin Aspart 300 UNITS/3 ML PEN SC ×3 (11:30→21:14)
[2020-02-19] MEDS: Magnesium Gluconate 500 MG TAB PO (13:11)
[2020-02-19 15:10] VITALS: BP 114/66; PULSE 61; RESP 20; TEMP 36.4; O2SAT 93
--- NOTE | 2020-02-19 16:06 | PT.INTREAT ---
Date of service: 02/19/20 Time of Service: 15:07 PT Notes Visit Reasons: (R) DISTAL FEMUR FX Inpatient Physical Therapy Treatment Note [facility] Date: 02/19/2020 PRECAUTIONS: Fall. Standard. Activity as tolerated. Non-ambulatory, stand pivot transfers only. SUBJECTIVE: Per nurse Consuelo, patient had a hard time transferring using the STEDY lift yesterday evening. She was hoping that a stand pivot transfer can be facilitated by this PT this morning. Patient continues to report lack of adequate control on the right lower extremity and pain limiting her ability to put weight on said limb. She reports that her chronic right-sided hemiparesis and chronic back pain pain do not help at all with her current situation. OBJECTIVE: IV in the left UE. Patient seen in bed with knee immobilizer off. Hoff catheter in place. PAIN: Patient reports significant pain on the right LE with weightbearing preventing her from fully shifting weight on that side. BED MOBILITY/TRANSFERS Rolling L/R: Moderate assist of 2 to left side only Supine-sit: Moderate assist of 2 with HOB at 45 degrees with left LE being able to hold onto a rail or to overhead trapeze for support. Knee immobilizer donned prior to activity. Sit-supine: Moderate assist of 2 with HOB at 45 degrees with left LE being able to hold onto a rail or to overhead trapeze for support Sit-stand: Total assist Stand-sit: Total assist Bed-Chair: Total assist Chair-bed: Total assist GAIT Assistive Device: Unable to perform Weight bearing: Unable to fully weight-bear on right LE Assist: Unable to perform Distance: N/A Deviation: N/A THEREX: Patient tolerated supine level exercises consisting of manually resisted plantarflexion on left LE only x10, long arc quads x10, and active assistive hip flexion on the left side. Patient is unable to do any movements on the right LE due to chronic right-sided hemiparesis and overriding pain on right LE with movement. ASSESSMENT: Patient is currently demonstrating limited motor control with weight bearing as well as with weight shifting onto the right side influenced by by chronic right-sided hemiparesis and postoperative pain on right LE . Her anxiety level goes up as well with any out-of bed activities. Attempt to stand up patient this morning proved to be unsafe as she was not putting any effort at all to try lift herself up. Patient reports that she has an AFO that stabilizes her right ankle better and prevents it from rolling in. [facility] Will look into the possibility and benefit of having AFO brought in here amidst ongoing COVID 19 precautions. PLAN: Mechanical lift only for all transfers at this time. We will continue to coordinate with nurse for pre-medication for pain for maximized functional performance. Return to SNF when medically cleared with continued physical therapy skilling for transfer skills progression. TREATMENT CODE/TIME: Session 1??[id number]? 40 minutes, [id number] X 14 minutes beginning at 9:58 AM. Session 2??[id number] x 15 minutes beginning at 15:07 PM.
[2020-02-19] MEDS: Acetaminophen 500 MG TAB PO (18:13)
[2020-02-19 19:00] VITALS: BP 125/64; PULSE 64; RESP 17; TEMP 36.3; O2SAT 94
[2020-02-19] MEDS: Multivitamin w/Minerals TAB 1 TAB PO (20:42)
[2020-02-19 23:31] VITALS: BP 109/57; PULSE 61; RESP 18; TEMP 36.4; O2SAT 95
[2020-02-20 03:58] VITALS: BP 117/67; PULSE 71; RESP 18; TEMP 37.1; O2SAT 95
[2020-02-20 07:32] VITALS: BP 112/63; PULSE 73; RESP 20; TEMP 36.7; O2SAT 94
[2020-02-20 07:32] LABS: HCT 23.5 % (36.0-46.0)
[2020-02-20] MEDS: Mometasone 220 MCG 14 DOSE INHALER 2 PUFF IH ×2 (07:39→20:11)
[2020-02-20] MEDS: Clopidogrel 75 MG TAB PO (07:45)
[2020-02-20] MEDS: Metoprolol 50 MG TAB PO ×2 (07:45→20:11)
[2020-02-20] MEDS: Refresh PLUS Eye Drops 0.4ml OP ×4 (07:46→20:11)
[2020-02-20] MEDS: metFORMIN 500 MG TAB 1000 MG PO ×2 (07:46→16:49)
[2020-02-20] MEDS: Cholecalciferol (Vitamin D3) 1,000 UNIT TAB 5000 UNITS PO (07:46)
[2020-02-20] MEDS: Pantoprazole 40 MG TABCR PO (07:47)
[2020-02-20] MEDS: Lisinopril 10 MG TAB PO (07:48)
[2020-02-20] MEDS: Venlafaxine 75 MG TAB 112.5 MG PO ×2 (07:48→20:12)
[2020-02-20] MEDS: busPIRone 5 MG TAB 10 MG PO ×2 (07:49→20:11)
[2020-02-20] MEDS: Multivitamin w/Minerals TAB 1 TAB PO ×2 (07:49→20:11)
[2020-02-20] MEDS: IRON SUCROSE COMPLEX 200 MG in Normal Saline 100 ML 400 MG IVPB (09:52)
[2020-02-20 10:59] LABS: COVID-19 RT-PCR UVMMC Result Negative (Negative)
[2020-02-20 11:18] VITALS: BP 111/68; PULSE 64; RESP 18; TEMP 37; O2SAT 95
[2020-02-20] MEDS: Magnesium Gluconate 500 MG TAB PO (11:26)
[2020-02-20] MEDS: Acetaminophen 500 MG TAB PO (11:26)
[2020-02-20] MEDS: Insulin Aspart 300 UNITS/3 ML PEN SC ×3 (11:35→22:38)
--- NOTE | 2020-02-20 14:02 | W.PM.PROGNOT ---
Date of Service Date of service: 02/20/20 Time of Service: 11:03 Assessment and Plan Assessment and plan (1) Closed fracture of femur, distal end: Status: Acute Assessment and plan: Azucena is a 65yo s/p retrograde IMN for a right distal femur fracture. She is doing well. She is reporting pain but it is much less when maneuvering in the bed and with nursing care. She is still having difficulties and pain with being out of the bed and performing transfers, but I expect that this will take some time. The fracture will still need to heal. Transfers OK with assistance. DVT prophylaxis with Plavis and ASA. Qualifiers: Encounter type: subsequent encounter Fracture morphology: unspecified fracture morphology Laterality: right Fracture healing: with routine healing Qualified Code(s): S72.401D - Unspecified fracture of lower end of right femur, subsequent encounter for closed fracture with routine healing (2) Acute blood loss anemia: Status: Acute Assessment and plan: Hgb stable at 7 and asymptomatic. Will continue to follow. Subjective Subjective Interval history since last seen: Azucena is doing well. She has had pain in the right thigh, but it is controlled and not worsening. She has been comfortable in the bed although notable pain with attempted transfers. No chest pain or SOB. No palpitations. No lightheadedness. Hgb is stable at 7. Exam Narrative Exam Narrative: Azucena is sitting in the bed. The dressings of the right leg is c/d/i. Thigh swelling is much improved but still more swollen than the left. SILT femoral nerve distribution. Foot held in equinus. Objective Objective Clinical Data: Abnormal lab results 02/20/20 Range/Units 07:19 Hgb 7.0 L (12.0-15.5) g/dL Hct 23.5 L (36.0-46.0) % Vital Signs Temperature 37 C 02/20/20 11:18 Temperature Source Temporal Artery Scan 02/20/20 11:18 Pulse 64 02/20/20 11:18 Pulse Rhythm Regular 02/20/20 09:54 Respiratory Rate 18 02/20/20 11:18 Respiratory Effort 02/20/20 09:54 Respiratory Depth Normal 02/20/20 09:54 Respiratory Pattern Normal 02/20/20 09:54 Blood Pressure 111/68 02/20/20 11:18 Pulse Oximetry 95 02/20/20 11:18 Respiratory End-tidal CO2 27 02/17/20 15:30 Oxygen Delivery Method Room Air 02/20/20 11:18 Oxygen Flow Rate 0 02/20/20 11:18 Pain Level 7 02/20/20 11:26 Intake & Output 02/19/20 02/20/20 02/20/20 23:59 11:59 23:59 Intake Total 1282.667 / 2360.000 77.333 / 77.333 Output Total 400 / 400 Balance 1282.667 / 1710.000 -322.667 / -322.667 Intake: IV 922.667 / 2000.000 77.333 / 77.333 Oral 360 / 360 Output: Urine 400 / 400 Other: Urine Color Yellow Light Leana Urine Appearance Clear Clear Laboratory Results WBC 8.34 k/cumm (4.4-10.8) 02/18/20 07:00 RBC 2.75 m/cumm (4.00-5.20) L 02/18/20 07:00 Hgb 7.0 g/dL (12.0-15.5) L 02/20/20 07:19 Hct 23.5 % (36.0-46.0) L 02/20/20 07:19 MCV 85.8 fL (80-95) 02/18/20 07:00 MCH 26.2 pg (27.0-33.0) L 02/18/20 07:00 MCHC 30.5 g/dL (32.0-36.0) L 02/18/20 07:00 RDW 20.4 % (11.7-14.6) H 02/18/20 07:00 Plt Count 125 x1000/uL (130-400) L 02/18/20 07:00 MPV 11.3 fL (8.0-11.0) H 02/18/20 07:00 Immature Gran % 0.2 % 02/18/20 07:00 Neutrophils % 72.0 02/18/20 07:00 Lymphocytes % 13.8 02/18/20 07:00 Monocytes % 13.8 02/18/20 07:00 Eosinophils % 0.1 02/18/20 07:00 Basophils % 0.1 02/18/20 07:00 Absolute Neutrophils 6.00 k/cumm (1.2-6.7) 02/18/20 07:00 Absolute Lymphocytes 1.15 k/cumm (1.2-3.4) L 02/18/20 07:00 Absolute Monocytes 1.15 k/cumm (0.11-0.7) H 02/18/20 07:00 Absolute Eosinophils 0.01 k/cumm (0.0-0.7) 02/18/20 07:00 Absolute Basophils 0.01 k/cumm (0.0-0.2) 02/18/20 07:00 Sodium 137 mmol/L (136-145) 02/19/20 06:30 Potassium 4.3 mmol/L (3.5-5.1) 02/19/20 06:30 Chloride 105 mmol/L (98-107) 02/19/20 06:30 Carbon Dioxide 25.5 mmol/L (21.0-32.0) 02/19/20 06:30 Anion Gap 6.5 mmol/L (3-11) 02/19/20 06:30 BUN 15 mg/dL (7-18) 02/19/20 06:30 Creatinine 0.79 mg/dL (0.55-1.02) 02/19/20 06:30 Estimated GFR/1.73 m2 >= 60.00 (mL/min/1.73m2) 02/19/20 06:30 Glucose 112 mg/dL (74-106) H 02/19/20 06:30 Hemoglobin A1c 5.7 % (3.8-5.6) H 02/18/20 07:00 Calcium 7.8 mg/dL (8.5-10.1) L 02/19/20 06:30 Magnesium 1.7 mg/dL (1.8-2.4) L 02/19/20 06:30 Iron 24 ug/dL (50-170) L 02/18/20 07:00 TIBC 320 ug/dL (250-450) 02/18/20 07:00 Transferrin % Sat 8 % (15-50) L 02/18/20 07:00 Ferritin 21 ng/mL (8-252) 02/18/20 07:00 NT-Pro-B Natriuret Pep Cancelled 02/17/20 19:11 Vitamin B12 632 pg/mL (193-986) 02/18/20 07:00 Folate 18.9 ng/mL (8.6-20.0) 02/18/20 07:00 COVID-19 PCR Negative (Negative) 02/19/20 10:00 Nasopharyn COVID-19 PCR Not Applicable 02/19/20 10:00 Ref Test Perform Site [facility] hospital lab 02/19/20 10:00 Patient ABO/Rh O Positive 02/17/20 10:32 Antibody Screen Negative 02/17/20 10:32
--- NOTE | 2020-02-20 14:33 | PT.INTREAT ---
Date of service: 02/20/20 Time of Service: 14:33 PT Notes Visit Reasons: (R) DISTAL FEMUR FX Inpatient Physical Therapy Treatment Note [facility] Date: 02/20/2020 PRECAUTIONS: Fall. Standard. Activity as tolerated. Non-ambulatory. Pleas use mechanical lift for all transfers at this time. SUBJECTIVE: Patient continues to be highly anxious about standing up and carrying her body weight. She continues to report pain on R LE at rest and with standing. OBJECTIVE: IV in the left UE. Patient seen in bed with knee immobilizer on. Hoff catheter in place. PAIN: Patient reports significant pain on the right LE with weight bearing preventing her from fully shifting weight on that side. BED MOBILITY/TRANSFERS Rolling L/R: Moderate assist of 3 to left side only, maximal assist to right Supine-sit: Moderate assist of 4 with HOB at 45 degrees with left UE being able to hold onto a rail or to overhead trapeze for support as needed. Sit-supine: Moderate assist of 4 with HOB at 45 degrees with left UE being able to hold onto a rail or to overhead trapeze for support as needed Sit-stand: maximal assist of 3 using STEDY lift. Patient only tolerated about 30 seconds to 1 minute of static semi squat position. Stand-sit: maximal assist of 3 using STEDY lift Bed-Chair: Total assist Chair-bed: Total assist GAIT Assistive Device: Unable to perform Weight bearing: Unable to fully weight-bear on right LE Assist: Unable to perform Distance: N/A Deviation: N/A THEREX: Patient tolerated supine level exercises consisting of manually resisted plantarflexion on left LE only x10, long arc quads x10, and active assistive hip flexion on the left side. Patient is unable to do any movements on the right LE due to chronic right-sided hemiparesis and overriding pain on right LE with movement. ASSESSMENT: Azucena is unable to fully bring pelvis forward enough to center her weight despite maximum assist of 3 and even with bed placed at its highest/safest height. Her trunk and hip extensors are unable to move her center of mass forward, core strength is weak. Her non-hemiparetic arm and LE are not able to support her weight. Her pain level compounds her limited ability to move. She will continue to require mechanical lift for all transfers to decrease fall risk. PLAN: Mechanical lift only for all transfers at this time. We will continue to coordinate with nurse for pre-medication for pain for maximized functional performance. Return to SNF when medically cleared with continued physical therapy skilling for transfer task progression. TREATMENT CODE/TIME: Session 1??84063? 39 minutes beginning at 10:01 AM. Session 2??[id number] x 24 minutes beginning at 14:33 PM.
[2020-02-20 15:35] VITALS: BP 121/75; PULSE 65; RESP 19; TEMP 36.6; O2SAT 97
--- NOTE | 2020-02-20 17:52 | PDOC.CMPRO ---
- If Service Date Differs Date of service: 02/20/20 Time of Service: 17:52 Care Management Progress Note S/O: Azucena was reviewed at interdisciplinary rounds. Her Covid tests results came back negative. She will need a Covid Screening tool filled out on Friday, day of anticipated discharge, and sent to [facility]. She will return tomorrow, as she is medically cleared. She has been working on transfers with PT, who continues to recommend mechanical lift at this time, and recommends further rehab at [facility]. CM will continue to follow. A: Azucena is a 65 year old female admitted to [facility] on 02/17/20 with a R distal femux fx. P: Anticipate Azucena will return to [facility], where she resides on Friday. Her Covid test is negative. She will transport via [facility] w/c van. She is agreeable to returning. CM will continue to follow.
[2020-02-20] MEDS: oxyCODONE 5 MG TAB PO (18:02)
--- NOTE | 2020-02-20 18:57 | DSE_ITS ---
Date of service: 02/21/20 Time of Service: 08:02 DS: Diagnosis Discharge Diagnosis (1) Closed fracture of femur, distal end: Status: Acute (2) Acute blood loss anemia: Status: Acute Discharge Plan Disposition Patient Disposition: SNF (LEVEL 1) [facility] Condition: Improving Discharge Details Reason For Visit: (R) DISTAL FEMUR FX Admit Date/Time: 02/17/20 11:53 Admit Provider: Dk Valentine Attending Provider: Dk Valentine Primary Care Provider: Ambrosio Elias [facility] Hospital Course: Azucena was admitted to the medical surgical floor following her surgical procedure. She tolerated the procedure well. She had a hospitalist consult to assist with post-operative medical management. She was medically stable throughout the admission without any significant medical decline. She did have a drop in Hemoglobin to 7 where it was stable and she was asymptomatic, so therefore, no transfusion was required. Azucena worked with physical therapy and was able to show improvement with in-bed mobility. She was able to transfer [facility] with some pain. Her pain was controlled with oral agents. Home Meds and New Rx's Prescriptions: New oxycodone 5 mg Tablet 5 mg PO Q4H PRN PRN (Reason: Pain) Qty: 24 RF: 0 Therems-M 27-0.4 mg Tablet 1 tab PO BID Qty: 0 RF: 0 magnesium gluconate 27 mg magnesium (500 mg) Tablet 500 mg PO DAILY@1200 Qty: 0 RF: 0 aspirin 81 mg tablet,delayed release (DR/EC) 81 mg PO BID Qty: 60 RF: 0 Continued bisacodyl 10 mg suppository [address] DAILY PRNRF: 0 polyethylene glycol 3350(bulk) [Base B,Polyethylene [id number]] granules 17 grnl miscellaneous PRN RF: 0 (DME) Depend Silhouette Women L/XL misc 1 ea Miscellaneous BID Qty: 200 RF: 5 cholecalciferol (vitamin D3) 5,000 unit capsule 5,000 unit PO DAILY Qty: 90 RF: 3 buspirone 10 mg tablet 10 mg PO BID Qty: 60 RF: 11 epinephrine 0.3 mg/0.3 mL auto-injector 0.3 mg IM ONCE Qty: 1 RF: 3 nitroglycerin [Nitrostat] 0.4 mg tablet, sublingual 0.4 mg Sublingual PRN Qty: 25 RF: 4 acetaminophen [Tylenol] 325 MG tablet 650 mg PO Q4H PRN RF: 0 magnesium hydroxide [Milk of Magnesia] 400 MG/5 ML suspension 30 ml PO PRN RF: 0 (DME) blood-glucose meter [OneTouch Ultra2 Meter] kit See Dose Instructions .ROUTE .MEDSUPPLY Qty: 1 RF: 0 carbidopa-levodopa 25-250 mg tablet 1 tab PO QHS Qty: 90 RF: 3 clopidogrel 75 mg tablet 75 mg PO DAILY Qty: 90 RF: 3 Flovent HFA 110 mcg/actuation HFA aerosol inhaler 2 puff IH BID Qty: 12 RF: 11 lisinopril 10 mg tablet 10 mg PO DAILY Qty: 90 RF: 3 metformin 1,000 mg tablet 1,000 mg PO BID Qty: 180 RF: 3 pantoprazole 40 mg tablet,delayed release (DR/EC) 40 mg PO DAILY Qty: 90 RF: 3 venlafaxine 75 mg tablet 75 mg PO BID Qty: 180 RF: 3 venlafaxine 37.5 mg tablet 37.5 mg PO BID Qty: 180 RF: 3 metoprolol tartrate 50 mg tablet 50 mg PO BID Qty: 180 RF: 3 (DME) pen needle, diabetic [BD Ultra-Fine Roxanna Pen Needle] 32 gauge x 5/32 n eedle 1 ea Miscellaneous QID Qty: 400 RF: 5 (DME) lancets 30 gauge misc See Rx Instructions .ROUTE .MEDSUPPLY Qty: 200 RF: 11 (DME) OneTouch Ultra Blue Test Strip Strip See Dose Instructions .ROUTE .MEDSUPPLY Qty: 200 RF: 11 dextrose [Glucose Gel] 40 % Gel 15 g PO Q15M PRNRF: 0 calcium carbonate [Tums] 200 mg calcium (500 mg) Tablet,Chewable 200 mg PO Q4H PRN (Reason: Heartburn) RF: 0 Fleet Enema 19-7 gram/118 mL Enema [address] ONCE RF: 0 artificial tears(hypromellose) 0.3 % Drops 1 drp OPHTHALMIC (EYE) QID RF: 0 sodium chloride [Saline Nasal] 0.65 % Aerosol,[place] 1 spray INTRANASAL Q4H PRN (Reason: Dry Nasal Passages) RF: 0 Glucagon (HCl) Emergency Kit 1 mg Recon Soln 1 mg SUBCUT Q15M PRNRF: 0 Discontinued hydrocodone-acetaminophen [Sophia] 5-325 mg Tablet 1 tab PO Q6H PRNRF: 0 tramadol 50 mg tablet 50 mg PO Q4H PRN PRNRF: 0 nitrofurantoin monohyd/m-cryst [Macrobid] 100 mg Capsule 100 mg PO BID RF: 0 Discharge Instructions Additional Instructions: Activity: Azucena may transfer on the right leg. I recommend the use of the knee immobilizer for all weight-bearing and transfer activities. However, the brace may be removed while in bed or in the chair. She may wear the AFO to help with foot/ankle positioning. PT can address ROM and strengthening as per her baseline but focus on progressive transfer capabilities. - Hoff catheter may be removed at any time per medicine/nursing recommendation Dressings: The Mepilex dressings should stay in place until 03/02/20. They may be changed if they are soiled. After 03/02/20 the dressings may be removed with nothing else. There are no sutures to be removed. Medications: - Azucena should use Tylenol around the clock for baseline pain control. - Oxycodone 5mg may be used for breakthrough pain, especially around any transfering. - Continue Aspirin and Plavix for DVT prophylaxis. Follow-up: 6 weeks. Referrals: Dk Valentine MD [ [facility] STAFF PHYSICIAN] - Activity:: Activity as Tolerated Equipment/Supplies:: Knee Brace Diet:: As Tolerated Discharge Orders Discharge Orders: Discharge Order (Routine); Ordered 02/21/20 Ordered By: Dk Valentine DS: Summary Status at Discharge Functional status at discharge: bed bound Overall status at discharge: patient is progressing back to baseline Mental Status: mental status grossly normal Speech and Movement: speech and movement normal Mood: congruent mood Affect: normal affect Exam Psych Mental Status: mental status grossly normal Speech and Movement: speech and movement normal Mood: congruent mood Affect: normal affect DS: Data Vitals/I&O Vitals and I&O: Vital Signs Temperature 36.6 C 02/20/20 15:35 Temperature Source Tympanic 02/20/20 15:35 Pulse 65 02/20/20 15:35 Pulse Rhythm Regular 02/20/20 17:00 Respiratory Rate 19 02/20/20 15:35 Respiratory Effort Non-Labored 02/20/20 17:00 Respiratory Depth Normal 02/20/20 17:00 Respiratory Pattern Normal 02/20/20 17:00 Blood Pressure 121/75 02/20/20 15:35 Pulse Oximetry 97 02/20/20 15:35 Respiratory End-tidal CO2 27 02/17/20 15:30 Oxygen Delivery Method Room Air 02/20/20 15:35 Oxygen Flow Rate 0 02/20/20 15:35 Pain Level 7 02/20/20 18:02 Intake & Output 02/19/20 02/20/20 02/20/20 23:59 11:59 23:59 Intake Total 1282.667 / 2360.000 77.333 / 557.333 480 / 557.333 Output Total 400 / 620 220 / 620 Balance 1282.667 / 1710.000 -322.667 / -62.667 260 / -62.667 Intake: IV 922.667 / 2000.000 77.333 / 77.333 Oral 360 / 360 480 / 480 Output: Urine 400 / 620 220 / 620 Other: Urine Color Yellow Light Leana Dark Leana Urine Appearance Clear Clear Clear Urine Odor None Voiding Methods Indwelling Catheter Data Completed and Pending Labs on day of discharge: Labs from last 24 hours 02/20/20 02/19/20 07:19 10:00 Hgb 7.0 L Hct 23.5 L COVID-19 PCR Negative Nasopharyn COVID-19 PCR Not Applicable Ref Test Perform Site [facility] lab [facility] Medical History Anemia (Acute 05/04/18) CAD (coronary artery disease) (Chronic) Carpal tunnel syndrome (Resolved) Cholelithiasis (Acute) COPD (chronic obstructive pulmonary disease) (Chronic) Depressive disorder (Chronic 02/25/13) Diabetes mellitus (Resolved 09/28/12) Fecal incontinence (Chronic) Gastroesophageal reflux disease (Acute 05/06/13) History of alcohol abuse (Chronic) Hyperlipidemia (Chronic) Hypertension (Chronic) Hypomagnesemia (Acute) Multinodular goiter (Chronic) Multiple sclerosis (Chronic) Secondary progressive; off DMT Myocardial infarction (Acute 06/12/11) stents x 2 Neurogenic bladder (Acute 07/09/16) snf resident (Chronic) [facility] Obesity (Acute) Palliative care patient (Chronic) Pedal edema (Acute) Peripheral neuropathy (Acute 01/05/15) diabetic Poorly controlled type 2 diabetes mellitus (Acute) Restless leg syndrome (Acute) Smoker (Inactive) Stroke (Acute 01/05/15) R hemiparesis Substance abuse (Inactive) Thrombocytopenia (Acute 05/04/18) Urinary incontinence (Chronic) Surgical History Bilateral salpingectomy with oophorectomy section Hx of repair of right rotator cuff (Acute) Open Carpal Tunnel release (06/21/11) [facility] S/P cubital tunnel release (Acute) Status post bilateral salpingo-oophorectomy (BSO) (Inactive) Status post carpal tunnel release (Inactive 06/21/11) Stent placement Family History Mother Substance abuse Bipolar disorder Depression Asthma Father , 80 Substance abuse Depression Heart disease Hyperlipidemia Stroke Brother Substance abuse Depression Hyperlipidemia Stroke Asthma Maternal Grandfather , 65 Heart disease Cancer Maternal Grandmother , 70 Stroke Asthma Heart disease Son Substance abuse Depression Asthma Paternal Grandfather , 65 Stroke Paternal Grandmother , 75 Heart disease Social History Smoking/Tobacco Use Status: Former Tobacco Use Second Hand Exposure: Yes Alcohol Intake: former Drug use: Current Sobriety Substance use type: unknown Housing: long term Number of Children: 1 Pets and animals: No Sexually active: No Do you think of yourself as: straight/heterosexual Current gender identity: female How often do you talk on the phone with friends or family?: decline to answer How often do you get together with friends or relatives?: decline to answer How often do you attend anglican or evangelical services?: decline to answer Do you belong to any clubs or organized social groups?: decline to answer What type of physical activity do you participate in: none Gely/Sabianist: None Special gely needs: No Do you feel safe in your relationship?: Yes Additional Social history: She has been on disability since her diagnosis of MS. She lives at the [facility]. 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 She has one son.
[2020-02-20 19:05] VITALS: BP 129/70; PULSE 68; RESP 18; TEMP 36.4; O2SAT 97
[2020-02-20 22:45] VITALS: BP 104/56; PULSE 66; RESP 18; TEMP 36.6; O2SAT 96
[2020-02-21 07:35] VITALS: BP 157/69; PULSE 68; RESP 20; TEMP 36.3; O2SAT 99
[2020-02-21] MEDS: Mometasone 220 MCG 14 DOSE INHALER 2 PUFF IH (07:44)
[2020-02-21] MEDS: Venlafaxine 75 MG TAB 112.5 MG PO (08:31)
[2020-02-21] MEDS: Refresh PLUS Eye Drops 0.4ml OP (08:31)
[2020-02-21] MEDS: Clopidogrel 75 MG TAB PO (08:32)
[2020-02-21] MEDS: busPIRone 5 MG TAB 10 MG PO (08:32)
[2020-02-21] MEDS: metFORMIN 500 MG TAB 1000 MG PO (08:32)
[2020-02-21] MEDS: Pantoprazole 40 MG TABCR PO (08:32)
[2020-02-21] MEDS: Metoprolol 50 MG TAB PO (08:32)
[2020-02-21] MEDS: Multivitamin w/Minerals TAB 1 TAB PO (08:32)
[2020-02-21] MEDS: Lisinopril 10 MG TAB PO (08:33)
[2020-02-21] MEDS: Cholecalciferol (Vitamin D3) 1,000 UNIT TAB 5000 UNITS PO (08:33)
--- NOTE | 2020-02-21 11:37 | PT.INDS ---
Date of service: 02/21/20 Time of Service: 11:37 PT Notes Visit Reasons: (R) DISTAL FEMUR FX Physical Therapy Inpatient Discharge Summary Date: 02/21/2020 Dates of service: 02/18/2020 through 02/21/2020 Referring Doctor: Dk Valentine MD PT CONSULT: S/P ortho surgery PRECAUTIONS: Fall. Standard. Activity as tolerated. Non-ambulatory. Pleas use mechanical lift for all transfers at this time. Patient Profile/Admitting Diagnosis: Patient is a 65-year-old female resident of [facility] who slipped and fell during a toileting activity landing on her right lower extremity resulting to a closed comminuted fracture of the right distal femoral shaft with posterior medial displacement of distal major fracture fragment. She is status post retrograde intramedullary nailing of the right femur on postoperative day 1. PMHX: Medical History Anemia (Acute 05/04/18) CAD (coronary artery disease) (Chronic) Carpal tunnel syndrome (Resolved) Cholelithiasis (Acute) COPD (chronic obstructive pulmonary disease) (Chronic) Depressive disorder (Chronic 02/25/13) Diabetes mellitus (Resolved 09/28/12) Fecal incontinence (Chronic) Gastroesophageal reflux disease (Acute 05/06/13) History of alcohol abuse (Chronic) Hyperlipidemia (Chronic) Hypertension (Chronic) Hypomagnesemia (Acute) Multinodular goiter (Chronic) Multiple sclerosis (Chronic) Secondary progressive; off DMT Myocardial infarction (Acute 06/12/11) stents x 2 Neurogenic bladder (Acute 07/09/16) halfway resident (Chronic) [facility] Obesity (Acute) Palliative care patient (Chronic) Pedal edema (Acute) Peripheral neuropathy (Acute 01/05/15) diabetic Poorly controlled type 2 diabetes mellitus (Acute) Restless leg syndrome (Acute) Stroke (Acute 01/05/15) R hemiparesis Thrombocytopenia (Acute 05/04/18) Urinary incontinence (Chronic) Surgical History Bilateral salpingectomy with oophorectomy section Open Carpal Tunnel release (06/21/11) [facility] [place] [place] S/P cubital tunnel release (Acute) Stent placement Social History/Home Situation: Patient is currently a long-term resident of [facility] and has previously been in a senior living. At the SNF, patient's main mode of mobility is through the use of a wheelchair and required assistance of 2 people for all transfers. She has been non-ambulatory for the past 2 to 3 years. She requires assistance with all bathing and dressing tasks and is a set up for self-feeding. Equipment Owned/DME: Wheelchair Subjective: Patient continues to report discomfort on R LE at rest. She understands that she will continue to have skilled PT services at the [facility] upon her return there today. Objective: General Observation: Knee immobilizer on right LE. IV in the left UE. Hoff catheter in place. Mental Status: Alert and oriented x4 Pain: 3/10 at rest. ROM: Right Upper Extremity: Shoulder Flexion allows up to 40 degrees. Shoulder abduction allows up to 20 degrees. Elbow flexion allows up to 10 degrees. Wrist flexion about 5 degrees. Opening and closing of hand absent. Left Upper Extremity: Shoulder Flexion WFL. Shoulder abduction WFL. Elbow flexion WFL. Wrist flexion WFL. Opening and closing of hand WFL. Right Lower Extremity: NT Left Lower Extremity: Hip flexion WFL. Hip abduction WFL. Knee flexion WFL. Ankle dorsiflexion WFL. Ankle plantarflexion WFL. Strength: Right Upper Extremity: Shoulder flexors 3-/5. Shoulder abductors 3-/5. Elbow flexors 2-/5. Elbow extensors 1/5. Field Operations Coordinator absent. Left Upper Extremity: Shoulder flexors 4/5. Shoulder abductors 4/5. Elbow flexors 4/5. Elbow extensors 4/5. Field Operations Coordinator strong. Right Lower Extremity: NT Left Lower Extremity:Hip flexors 4-/5. Hip abductors 4-/5. Knee flexors 4-/5. Knee extensors 4-/5. Ankle dorsiflexors 4-/5. Ankle plantarflexors 4-/5. Sensation: Diminished as to pain and pressure on right lower extremity. Intact on the left. BED MOBILITY/TRANSFERS Rolling L/R: Moderate assist of 3 to left side only, maximal assist to right Supine-sit: Moderate assist of 4 with HOB at 45 degrees with left UE being able to hold onto a rail or to overhead trapeze for support as needed. Sit-supine: Moderate assist of 4 with HOB at 45 degrees with left UE being able to hold onto a rail or to overhead trapeze for support as needed Sit-stand: maximal assist of 3 using STEDY lift. Patient only tolerated about 30 seconds to 1 minute of static semi squat position. Stand-sit: maximal assist of 3 using STEDY lift Bed-Chair: Total assist Chair-bed: Total assist GAIT Assistive Device: Unable to perform Weight bearing: Unable to fully weight-bear on right LE Assist: Unable to perform Distance: N/A Deviation: N/A Balance: Static Sitting: Good Dynamic Sitting: Fair Static Standing: Unable Dynamic Standing: Unable Special Tests: Mobility Limitations Standardized Measure [facility] AM-PAC 6 clicks Basic Mobility Inpatient Short Form: Raw Score: 10 CMS Score: 77% deficit THEREX: Patient tolerated supine level exercises consisting of manually resisted plantarflexion on left LE only x10, long arc quads x10, and active assistive hip flexion on the left side. Patient is unable to do any movements on the right LE due to chronic right-sided hemiparesis and overriding pain on right LE with movement. Assessment: Azucena is unable to fully bring pelvis forward enough to center her weight despite maximum assist of 3 and even with bed placed at its highest/safest height. Her trunk and hip extensors are unable to move her center of mass forward, core strength is weak. Her non-hemiparetic arm and LE are not able to support her weight. Her pain level compounds her limited ability to move. She will continue to require mechanical lift for all transfers to decrease fall risk. Patient continues to present with clinical signs and symptoms consistent with current/admitting diagnoses that have resulted to mobility limitations, gait instability, generalized weakness, and impairment of motor control as demonstrated by the following impairment level findings: 1. Decreased strength to right LE major muscle groups; long standing right-sided hemiparesis 2. Impaired sitting balance 3. Absent significantly diminished standing balance 3. Impaired activity tolerance 4. Limitation of joint range of motion in right UE/LE due to longstanding right-sided hemiparesis Impairments are continuing to contribute to the following functional limitations: 1. Dependent bed mobility skills 2. Increased dependence with transfers 3. Inability to safely ambulate without assistive device and physical assistance 4. Increase completion time for mobility ADL performance 5. Increased fall risk 6. Inability to negotiate steps alone safely Goals: Goals X1 week 1. Supine-Sit minimal assist NOT MET 2. Sit-Supine minimal assist NOT MET 3. Sit-Stand minimal assist NOT MET 4. Stand-Sit minimal assist of 2 NOT MET 5. Bed-Chair minimal assist of 2 NOT MET 6. Chair-Bed minimal assist of 2 NOT MET 7. Good static and dynamic standing balance/tolerance NOT MET DISCHARGE RECOMMENDATIONS: Return to [facility] facility for continued skilled physical therapy services in order to progress mobility level, strength, and balance in preparation for a safe discharge to home. TREATMENT CODE/TIME: [id number] x 18 minutes beginning at 11:37 AM. Thank you very much for this referral. Dennise Castillo PT, DPT, CLT [facility] [place], [place]
[2020-02-21 11:41] VITALS: BP 124/77; PULSE 62; RESP 20; TEMP 36.6; O2SAT 98
[2020-02-21] MEDS: Magnesium Gluconate 500 MG TAB PO (12:45)
[2020-02-21] MEDS: Insulin Aspart 300 UNITS/3 ML PEN SC (12:45)
--- NOTE | 2020-02-21 17:32 | CMDISCH_ITS ---
- If Service Date Differs Date of service: 02/21/20 Time of Service: 17:32 LACE Index Scoring Tool - Questions: Length of Stay (in days): 4 - 6 Acuity (Admit via E.D.?): No Comorbidities: Previous M.I., Diabetes w/o Complication, Chronic Pulmonary Disease E.D. Visits: 1 - Answers: Total Score: 10 Risk of Readmission: High Risk Care Management Discharge Reason for Hospitalization: R Distal Femur Fx Discharge Plan: Azucena will return to [facility] where she resides. She will transport via [facility] w/c van, coordinated by CM. She will follow up with Ortho, as recommended. She is agreeable to returning to [facility]. Patient/Family Education Needs: Review discharge instructions regarding activity levels and medications, discussion of self care needs and goals of care. Services Needed at Discharge: [facility]
== END 2020-02-21 13:35 | disposition skilled nursing facility (03) | DRG 481 ==
LOC: PDS 14:46 → MS 21:14 → PDS 02-19 15:33
PROVIDERS: Internal Medicine; Admitting Provider Student in an Organized Health Care Education/Training Program; PCP Family Medicine; Visit Provider Student in an Organized Health Care Education/Training Program
PROC: 0QS806Z Reposition Right Femoral Shaft with Intramedullary Internal Fixation Device, Open Approach (ICD-10-PCS; CPT 27245; principal; 2020-02-17 11:45)
DX: S72.331A Displaced oblique fracture of shaft of right femur, initial encounter for closed fracture (principal); Z68.41 Body mass index [BMI] 40.0-44.9, adult; I69.351 Hemiplegia and hemiparesis following cerebral infarction affecting right dominant side; D62 Acute posthemorrhagic anemia; S72.351A Displaced comminuted fracture of shaft of right femur, initial encounter for closed fracture; G89.18 Other acute postprocedural pain; X58.XXXA Exposure to other specified factors, initial encounter; Y92.129 Unspecified place in nursing home as the place of occurrence of the external cause; Y83.8 Other surgical procedures as the cause of abnormal reaction of the patient, or of later complication, without mention of misadventure at the time of the procedure; G89.11 Acute pain due to trauma; I10 Essential (primary) hypertension; I25.10 Atherosclerotic heart disease of native coronary artery without angina pectoris; Z95.5 Presence of coronary angioplasty implant and graft; E11.42 Type 2 diabetes mellitus with diabetic polyneuropathy; Z79.84 Long term (current) use of oral hypoglycemic drugs; E83.42 Hypomagnesemia; D50.9 Iron deficiency anemia, unspecified; K21.9 Gastro-esophageal reflux disease without esophagitis; E66.9 Obesity, unspecified; G35 Multiple sclerosis; J44.9 Chronic obstructive pulmonary disease, unspecified; N31.9 Neuromuscular dysfunction of bladder, unspecified; Z87.891 Personal history of nicotine dependence; Z71.3 Dietary counseling and surveillance
CPT/HCPCS: 27506; 36415; 80048; 86850; 86900; 86901; 94640; 97110; 97163; 97530; 99232; 99254; NC; U0003; 73501; 82607; 82728; 82746; 83036; 83540; 83550; 83735; 83880; 85014; 85018; 85025; 99222; J0131; J1100; J1756; J1885; J2001; J2405; J2704; J3475

== ENCOUNTER 2020-02-28 17:23 | Outpatient (REF) | payer SELFPAY ==
[2020-02-29 17:55] LABS: COVID-19 RT-PCR Result NEGATIVE (Negative)
== END 2020-02-28 17:43 ==
LOC: LBN 17:23
PROVIDERS: PCP Family Medicine; Visit Provider Nurse Practitioner Adult Health
DX: Z20.828 Contact with and (suspected) exposure to other viral communicable diseases (principal)
CPT/HCPCS: U0003

== ENCOUNTER 2020-03-06 15:55 | Outpatient (REF) | payer MEDICARE, MEDICAID, SELFPAY ==
[2020-03-06 15:21] LABS: Bilirubin Negative (Negative); Blood Negative (Negative); Clarity Cloudy (Clear); Glucose Negative (Negative); Ketones Negative (Negative); Leukocyte Esterase Small (Negative); Nitrite Positive (Negative); pH 8.5 (5-8)
[2020-03-06 15:41] LABS: Crystals Many Amorphous HPF (Negative); WBC >50 HPF (0-5)
[2020-03-06 15:42] LABS: C & S Indicated? C&S Done As Ordered
== END 2020-03-06 16:15 ==
LOC: LBN 15:55
PROVIDERS: PCP Family Medicine; Visit Provider Family Medicine
DX: N39.0 Urinary tract infection, site not specified (principal)
CPT/HCPCS: 87077; 81003; 81015; 87086; 87186

== ENCOUNTER 2020-03-07 18:20 | Outpatient (REF) | payer SELFPAY ==
[2020-03-08 14:45] LABS: COVID-19 RT-PCR UVMMC Result Negative (Negative)
== END 2020-03-07 18:40 ==
LOC: LBN 18:20
PROVIDERS: PCP Family Medicine; Visit Provider Nurse Practitioner Adult Health
DX: Z20.828 Contact with and (suspected) exposure to other viral communicable diseases (principal)
CPT/HCPCS: U0003

== ENCOUNTER 2020-04-06 15:48 | Outpatient (REF) | payer MEDICARE, MEDICAID, SELFPAY ==
[2020-04-07 15:27] LABS: COVID-19 RT-PCR Result Not Detected ((See Note))
== END 2020-04-06 16:08 ==
LOC: LBN 15:48
PROVIDERS: PCP Family Medicine; Visit Provider Nurse Practitioner Adult Health
DX: Z03.818 Encounter for observation for suspected exposure to other biological agents ruled out (principal)
CPT/HCPCS: U0003

== ENCOUNTER 2020-04-11 15:01 | Outpatient (REF) | payer MEDICARE, MEDICAID, SELFPAY ==
[2020-04-12 17:27] LABS: COVID-19 RT-PCR Result Not Detected ((See Note))
== END 2020-04-11 15:21 ==
LOC: LBN 15:01
PROVIDERS: PCP Family Medicine; Visit Provider Nurse Practitioner Adult Health
DX: Z03.818 Encounter for observation for suspected exposure to other biological agents ruled out (principal)
CPT/HCPCS: U0003

== ENCOUNTER 2020-05-16 15:15 | Outpatient (REF) | payer MEDICARE, MEDICAID, SELFPAY ==
[2020-05-16 16:02] LABS: Anion Gap 6.9 mmol/L (3-11); BUN 11 mg/dL (7-18); CO2 29.1 mmol/L (21.0-32.0); CREATININE 0.66 mg/dL (0.55-1.02); Calcium 8.9 mg/dL (8.5-10.1); Chloride 105 mmol/L (98-107); Glucose 229 mg/dL (74-106); Potassium 3.8 mmol/L (3.5-5.1); Sodium 141 mmol/L (136-145)
== END 2020-05-16 15:35 ==
LOC: LBN 15:15
PROVIDERS: PCP Family Medicine; Visit Provider Nurse Practitioner Adult Health
DX: D62 Acute posthemorrhagic anemia (principal); D50.9 Iron deficiency anemia, unspecified
CPT/HCPCS: 80048

== ENCOUNTER 2020-06-15 01:22 | Emergency (ER) | payer MEDICARE, MEDICAID, SELFPAY ==
[2020-06-15] VITALS (23 sets, daily range): BP systolic 112–128; BP diastolic 40–93; PULSE 71–84; RESP 4–27; TEMP 38; O2SAT 91–100
--- NOTE | 2020-06-15 01:15 | RT.EKG_ITS ---
APPROVED REPORT Exam: Resting ECG Patient Location: E HR:78 bpm ECG Measurements Heart Rate 78 AXIS TN [id number] P [id number] QRSd 93 QRS -28 QT 371 T 31 QTc 421 Conclusion Accelerated junctional rhythm...absent P waves, accele'd V-rate
--- NOTE | 2020-06-15 01:35 | W.ED.GENAD ---
Discharge Plan Disposition Patient Disposition: SNF (LEVEL 1) [facility] Condition: Stable Discharge Details Chief Complaint: Fever Clinical Impression: COPD (chronic obstructive pulmonary disease), Anemia, Shortness of breath Primary Care Provider: Ambrosio Elias ED Provider: David Amaya Home Meds and New Rx's Prescriptions: New prednisone 20 mg tablet 60 mg PO DAILY 4 Days Qty: 12 RF: 0 levofloxacin 750 mg tablet 750 mg PO DAILY Qty: 5 RF: 0 Continued bisacodyl 10 mg suppository 10 mg GA DAILY PRNRF: 0 polyethylene glycol 3350(bulk) [Base B,Polyethylene [id number]] granules 17 grnl miscellaneous PRN RF: 0 (DME) Depend Silhouette Women L/XL misc 1 ea Miscellaneous BID Qty: 200 RF: 5 cholecalciferol (vitamin D3) 5,000 unit capsule 5,000 unit PO DAILY Qty: 90 RF: 3 buspirone 10 mg tablet 10 mg PO BID Qty: 60 RF: 11 epinephrine 0.3 mg/0.3 mL auto-injector 0.3 mg IM ONCE Qty: 1 RF: 3 nitroglycerin [Nitrostat] 0.4 mg tablet, sublingual 0.4 mg Sublingual PRN Qty: 25 RF: 4 acetaminophen [Tylenol] 325 MG tablet 650 mg PO Q4H PRN RF: 0 magnesium hydroxide [Milk of Magnesia] 400 MG/5 ML suspension 30 ml PO PRN RF: 0 (DME) blood-glucose meter [OneTouch Ultra2 Meter] kit See Dose Instructions .ROUTE .MEDSUPPLY Qty: 1 RF: 0 carbidopa-levodopa 25-250 mg tablet 1 tab PO QHS Qty: 90 RF: 3 clopidogrel 75 mg tablet 75 mg PO DAILY Qty: 90 RF: 3 Flovent HFA 110 mcg/actuation HFA aerosol inhaler 2 puff IH BID Qty: 12 RF: 11 lisinopril 10 mg tablet 10 mg PO DAILY Qty: 90 RF: 3 metformin 1,000 mg tablet 1,000 mg PO BID Qty: 180 RF: 3 pantoprazole 40 mg tablet,delayed release (DR/EC) 40 mg PO DAILY Qty: 90 RF: 3 venlafaxine 75 mg tablet 75 mg PO BID Qty: 180 RF: 3 venlafaxine 37.5 mg tablet 37.5 mg PO BID Qty: 180 RF: 3 metoprolol tartrate 50 mg tablet 50 mg PO BID Qty: 180 RF: 3 (DME) pen needle, diabetic [BD Ultra-Fine Roxanna Pen Needle] 32 gauge x 5/32 needle 1 ea Miscellaneous QID Qty: 400 RF: 5 (DME) lancets 30 gauge misc See Rx Instructions .ROUTE .MEDSUPPLY Qty: 200 RF: 11 (DME) OneTouch Ultra Blue Test Strip Strip See Dose Instructions .ROUTE .MEDSUPPLY Qty: 200 RF: 11 dextrose [Glucose Gel] 40 % Gel 15 g PO Q15M PRNRF: 0 calcium carbonate [Tums] 200 mg calcium (500 mg) Tablet,Chewable 200 mg PO Q4H PRN (Reason: Heartburn) RF: 0 Fleet Enema 19-7 gram/118 mL Enema 118 ml GA ONCE RF: 0 artificial tears(hypromellose) 0.3 % Drops 1 drp OPHTHALMIC (EYE) QID RF: 0 sodium chloride [Saline Nasal] 0.65 % Aerosol,[place] 1 spray INTRANASAL Q4H PRN (Reason: Dry Nasal Passages) RF: 0 Glucagon (HCl) Emergency Kit 1 mg Recon Soln 1 mg SUBCUT Q15M PRNRF: 0 oxycodone 5 mg Tablet 5 mg PO Q4H PRN PRN (Reason: Pain) Qty: 24 RF: 0 Therems-M 27-0.4 mg Tablet 1 tab PO BID Qty: 0 RF: 0 magnesium gluconate 27 mg magnesium (500 mg) Tablet 500 mg PO DAILY@1200 Qty: 0 RF: 0 aspirin 81 mg tablet,delayed release (DR/EC) 81 mg PO BID Qty: 60 RF: 0 prednisone 10 mg tablet 10 mg PO QAM RF: 0 albuterol sulfate 90 mcg/actuation HFA aerosol inhaler 3 inh INHALATION Q6H PRN PRNRF: 0 magnesium oxide 400 mg magnesium Tablet 400 mg PO DAILY RF: 0 Discharge Instructions Instructions: COPD (Chronic Obstructive Pulmonary Disease) (ED) Additional Instructions: you are being treated for a copd exacerbation and early pneumonia follow up with your primary care provider within 1 week if you feel more ill, have worsening shortness of breath return to the emergency department Medical Decision Making 65 yo female with hx of MS and prior cva which has left her bed bound, cad, copd, dm, who comes in with ems from [facility] with cough fever and dyspnea for a day. Denies any chest pain or pressure, no abdominal pain and denies any headache. She arrives hd stable speaking in full sentences, is febrile with normal bp and o2 saturation. Does have wheezing bilaterally on lung exam. Suspect respiratory infection based on her symptoms, will tx her likely copd exacerbation with steroids, nebulizer and also obtain lab work including cultures and a cxr and monitor. Pt's labs show hgb of 7 which it was in February as well with wbc of 12 otherwise unremarkable lab work and xray unremarkable. On reassessment she is still hd stable, bp 112/70, HR 70, o2 saturation on room air 96% and respiratory rate of 12. When I entered the room she asked to be d/c'd to the care home. She was offered admission for observation but she declined as she is more comfortable at the care home and has capacity to make her own decisions, and this seems reasonable given her hemodynamic stability. I am going to d/c her on prednisone and given the coughtreat as copd exacerbation/early pneumonia start levofloxacin. REturn precautions given Differential Diagnosis Differential Diagnosis: pna, influenza, covid Medical Records Medical records reviewed: Yes I reviewed the patient's medical records. Imaging Data Radiologic Study: Attestation: I personally reviewed and interpreted this imaging study as follows: Imaging: X-Ray Radiologist's impression: no acute findings Lab Data Lab results reviewed: Yes I reviewed the patient's lab results. ECG Data Attestation: I personally reviewed and interpreted this ECG (s) as follows: Prior ECG tracings: not available for review Interpretation: junctional rhythm, rate of [address] t wave ischemic findings HPI General Mode of arrival: EMS. Date/Time Provider Initiated Documentation: 06/15/20 01:28. Limitations to Documentation: no limitations. Information obtained by: patient. History of Present Illness 65 year old F presents to the emergency department with the chief complaint of cough, described as moderate, Patient started experiencing this day(s) (1) and it has been intermittent. No relieving factors improve symptom(s), No exacerbating factors reported . Related Data Home Medications Medication Instructions Recorded Confirmed acetaminophen [Tylenol] 650 mg PO Q4H PRN tab-cap 08/24/14 06/15/20 magnesium hydroxide [Milk of 30 ml PO PRN ml 05/13/18 06/15/20 Magnesia] bisacodyl 10 mg rectal suppository 10 mg GA DAILY PRN 01/13/19 06/15/20 polyethylene glycol 3350(bulk) 17 grnl MISCELLANEOUS PRN gm 01/13/19 06/15/20 blood-glucose meter #1 each 02/19/19 10/19/19 cholecalciferol (vitamin D3) 125 5,000 unit PO DAILY #90 cap 02/22/19 06/15/20 mcg (5,000 unit) capsule diaper,brief,adult,disposable #200 each 02/22/19 10/19/19 carbidopa 25 mg-levodopa 250 mg 1 tab PO QHS #90 tab 03/04/19 06/15/20 tablet clopidogrel 75 mg tablet 75 mg PO DAILY #90 tab 03/05/19 06/15/20 fluticasone propionate 110 2 puff IH BID #12 gm 03/15/19 06/15/20 mcg/actuation HFA aerosol inhaler lisinopril 10 mg tablet 10 mg PO DAILY #90 tab 03/15/19 06/15/20 metformin 1,000 mg tablet 1,000 mg PO BID #180 tab 03/15/19 06/15/20 pantoprazole 40 mg tablet,delayed 40 mg PO DAILY #90 tab 03/15/19 02/17/20 release venlafaxine 37.5 mg tablet 37.5 mg PO BID #180 tab-cap 03/15/19 06/15/20 venlafaxine 75 mg tablet 75 mg PO BID #180 tab-cap 03/15/19 06/15/20 metoprolol tartrate 50 mg tablet 50 mg PO BID #180 tab 04/25/19 06/15/20 pen needle, diabetic 32 gauge x #400 ea 05/10/19 10/19/19 buspirone 10 mg tablet 10 mg PO BID #60 tab 06/01/19 06/15/20 epinephrine 0.3 mg/0.3 mL 0.3 mg IM ONCE #1 syr 09/01/19 06/15/20 injection, auto-injector nitroglycerin 0.4 mg sublingual 0.4 mg SUBLINGUAL PRN #25 tab.sl 09/01/19 06/15/20 tablet OneTouch Ultra Blue Test Strip #200 each NS 10/20/19 lancets 30 gauge #200 each 10/20/19 Fleet Enema 118 ml GA ONCE 02/16/20 06/15/20 Glucagon (HCl) Emergency Kit 1 mg SUBCUT Q15M PRN 02/16/20 06/15/20 artificial tears(hypromellose) 1 drp OPHTHALMIC (EYE) QID 02/16/20 06/15/20 calcium carbonate [Tums] 200 mg PO Q4H PRN 02/16/20 06/15/20 dextrose [Glucose Gel] 15 g PO Q15M PRN 02/16/20 06/15/20 sodium chloride [Saline Nasal] 1 spray INTRANASAL Q4H PRN 02/16/20 06/15/20 Therems-M 1 tab PO BID #0 tab 02/21/20 06/15/20 aspirin 81 mg PO BID #60 tab 02/21/20 06/15/20 magnesium gluconate 500 mg PO DAILY@1200 #0 tab 02/21/20 oxycodone 5 mg PO Q4H PRN PRN #24 tab 02/21/20 06/15/20 albuterol sulfate 3 inh INHALATION Q6H PRN PRN 06/15/20 06/15/20 levofloxacin 750 mg PO DAILY #5 tab 06/15/20 magnesium oxide 400 mg PO DAILY 06/15/20 06/15/20 prednisone 10 mg PO QAM 06/15/20 06/15/20 prednisone 60 mg PO DAILY 4 Days #12 tab 06/15/20 Previous Rx's Medication Instructions Recorded blood-glucose meter #1 each 02/19/19 cholecalciferol (vitamin D3) 125 5,000 unit PO DAILY #90 cap 02/22/19 mcg (5,000 unit) capsule diaper,brief,adult,disposable #200 each 02/22/19 carbidopa 25 mg-levodopa 250 mg 1 tab PO QHS #90 tab 03/04/19 tablet clopidogrel 75 mg tablet 75 mg PO DAILY #90 tab 03/05/19 fluticasone propionate 110 2 puff IH BID #12 gm 03/15/19 mcg/actuation HFA aerosol inhaler lisinopril 10 mg tablet 10 mg PO DAILY #90 tab 03/15/19 metformin 1,000 mg tablet 1,000 mg PO BID #180 tab 03/15/19 pantoprazole 40 mg tablet,delayed 40 mg PO DAILY #90 tab 03/15/19 release venlafaxine 37.5 mg tablet 37.5 mg PO BID #180 tab-cap 03/15/19 venlafaxine 75 mg tablet 75 mg PO BID #180 tab-cap 03/15/19 metoprolol tartrate 50 mg tablet 50 mg PO BID #180 tab 04/25/19 pen needle, diabetic 32 gauge x #400 ea 05/10/19 buspirone 10 mg tablet 10 mg PO BID #60 tab 06/01/19 epinephrine 0.3 mg/0.3 mL 0.3 mg IM ONCE #1 syr 09/01/19 injection, auto-injector nitroglycerin 0.4 mg sublingual 0.4 mg SUBLINGUAL PRN #25 tab.sl 09/01/19 tablet OneTouch Ultra Blue Test Strip #200 each NS 10/20/19 lancets 30 gauge #200 each 10/20/19 Therems-M 1 tab PO BID #0 tab 02/21/20 aspirin 81 mg PO BID #60 tab 02/21/20 magnesium gluconate 500 mg PO DAILY@1200 #0 tab 02/21/20 oxycodone 5 mg PO Q4H PRN PRN #24 tab 02/21/20 levofloxacin 750 mg PO DAILY #5 tab 06/15/20 prednisone 60 mg PO DAILY 4 Days #12 tab 06/15/20 Allergies Allergy/AdvReac Type Severity Reaction Status Date / Time duloxetine HCl Allergy Severe Verified 06/15/20 01:39 [From Cymbalta] iodine Allergy Severe Other (See Unverified 06/15/20 01:39 Comment) Penicillins Allergy Severe Anaphylaxsi Verified 06/15/20 01:39 s insulin glargine, human Allergy Intermediate Verified 06/15/20 01:39 recombin. a [From Lantus] azithromycin Allergy Unknown Hives Verified 06/15/20 01:39 latex Allergy Unknown Verified 06/15/20 01:39 adhesive Allergy Verified 06/15/20 01:39 egg Allergy unknown Verified 06/15/20 01:39 ibuprofen [From Motrin] Allergy asthma Unverified 06/15/20 01:39 nut - unspecified Allergy Swelling/Ed Unverified 06/15/20 01:39 oswaldo sodium hypochlorite solution Allergy Unverified 06/15/20 01:39 Cvprmzc-Cuz-Hab Reductase AdvReac Intermediate Other (See Verified 06/15/20 02:42 Inhibitor Comment) enoxaparin [From Lovenox] AdvReac Mild Skin Rash Unverified 06/15/20 01:39 paroxetine AdvReac Mild sexual Unverified 06/15/20 01:39 dysfunction tetracycline AdvReac Mild yeast Unverified 06/15/20 01:39 General Stated Complaint: Fever NAE: 3 Review of Systems All systems reviewed & are unremarkable except as noted in HPI and below Constitutional Constitutional: Denies weakness Cardiovascular Cardiovascular: Denies chest pain Gastrointestinal Gastrointestinal: Denies abdominal pain, Denies nausea and Denies vomiting Genitourinary Genitourinary: Denies dysuria Musculoskeletal Musculoskeletal: Denies joint swelling Integumentary/Breasts Skin/Breast: Denies rash Neurologic Neurologic: Denies weakness [facility] Medical History (Updated 06/15/20 @ 03:01 by David Amaya MD) Anemia (Acute 05/04/18) CAD (coronary artery disease) (Chronic) Carpal tunnel syndrome (Resolved) Cholelithiasis (Acute) COPD (chronic obstructive pulmonary disease) (Chronic) Depressive disorder (Chronic 02/25/13) Diabetes mellitus (Resolved 09/28/12) Fecal incontinence (Chronic) Gastroesophageal reflux disease (Acute 05/06/13) History of alcohol abuse (Chronic) Hyperlipidemia (Chronic) Hypertension (Chronic) Hypomagnesemia (Acute) Multinodular goiter (Chronic) Multiple sclerosis (Chronic) Secondary progressive; off DMT Myocardial infarction (Acute 06/12/11) stents x 2 Neurogenic bladder (Acute 07/09/16) senior living resident (Chronic) [facility] Obesity (Acute) Palliative care patient (Chronic) Pedal edema (Acute) Peripheral neuropathy (Acute 01/05/15) diabetic Poorly controlled type 2 diabetes mellitus (Acute) Restless leg syndrome (Acute) Smoker (Inactive) Stroke (Acute 01/05/15) R hemiparesis Substance abuse (Inactive) Thrombocytopenia (Acute 05/04/18) Urinary incontinence (Chronic) Surgical History Bilateral salpingectomy with oophorectomy section Hx of repair of right rotator cuff (Acute) Open Carpal Tunnel release (06/21/11) [facility] [place] [facility] S/P cubital tunnel release (Acute) Status post bilateral salpingo-oophorectomy (BSO) (Inactive) Status post carpal tunnel release (Inactive 06/21/11) Stent placement Family History Mother Substance abuse Bipolar disorder Depression Asthma Father , 80 Substance abuse Depression Heart disease Hyperlipidemia Stroke Brother Substance abuse Depression Hyperlipidemia Stroke Asthma Maternal Grandfather , 65 Heart disease Cancer Maternal Grandmother , 70 Stroke Asthma Heart disease Son Substance abuse Depression Asthma Paternal Grandfather , 65 Stroke Paternal Grandmother , 75 Heart disease Social History Smoking/Tobacco Use Status: Former Tobacco Use Second Hand Exposure: Yes Alcohol Intake: former Drug use: Current Sobriety Substance use type: unknown Housing: care home Number of Children: 1 Pets and animals: No Sexually active: No Do you think of yourself as: straight/heterosexual Current gender identity: female How often do you talk on the phone with friends or family?: decline to answer How often do you get together with friends or relatives?: decline to answer How often do you attend yazidism or buddhist services?: decline to answer Do you belong to any clubs or organized social groups?: decline to answer What type of physical activity do you participate in: none Gely/Alevism: None Special gely needs: No Do you feel safe in your relationship?: Yes Additional Social history: She has been on disability since her diagnosis of MS. She lives at the [facility]. 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 She has one son. Pt from [facility] Exam Const General: no acute distress Orientation: alert HENCT Head: normal to inspection Ears: external ears normal General nose exam: external nose normal Mouth: moist mucous membranes Eyes General: appearance normal, both eyes and all related structures Neck Neck: normal visual inspection Resp Effort & Inspection: normal respiratory effort and able to speak in complete sentences Cardio Rate: regular rate Skin General skin exam: no rashes or lesions noted Neuro General: patient alert and patient oriented x3 Extrem General: normal to inspection Psych Mental Status: mental status grossly normal Course Vital Signs Vital signs: Vital Signs Temperature 38.0 C H 06/15/20 01:25 Pulse 77 06/15/20 01:25 Respiratory Rate 16 06/15/20 01:25 Blood Pressure 128/66 06/15/20 01:25 Pulse Oximetry 94 L 06/15/20 01:25 Temperature 38.0 C H 06/15/20 01:25 Temperature Source Oral 06/15/20 01:25 Pulse 77 06/15/20 01:25 Respiratory Rate 16 06/15/20 01:25 Blood Pressure 128/66 06/15/20 01:25 Pulse Oximetry 94 L 06/15/20 01:25 Oxygen Delivery Method Room Air 06/15/20 01:25 Oxygen Flow Rate 0 06/15/20 01:25 Pain Level 6 06/15/20 01:25 Lab/Test Results Lab/Test Results: 06/15/20 01:31 Nasopharynx Influenza Types A,B Antigen - Pending 06/15/20 01:29 Blood Blood Culture - Pending 06/15/20 01:29 Blood Blood Culture - Pending
[2020-06-15] MEDS: Albuterol/Ipratropium 3 ML UPD VIAL UPD (02:03)
[2020-06-15] MEDS: methylPREDNISolone SUCC 125 MG VIAL IVP (02:04)
[2020-06-15 02:07] LABS: Abs Immature Grans 0.06 10^3/uL (0.0-0.06); Absolute Basophil Count 0.09 10^3/uL (0.0-0.2); Absolute Eosinophil Count 0.27 10^3/uL (0.0-0.7); Absolute Lymphocyte Count 1.34 10^3/uL (1.2-3.4); Absolute Monocyte Count 1.56 10^3/uL (0.1-0.8); Absolute Neutrophil Count 9.13 10^3/uL (1.2-6.7); Basophils % 0.7; Eosinophils % 2.2; HCT 24.2 % (36.0-46.0); Immature Grans % 0.5; Lymphocytes % 10.8; MCH 24.5 pg (27.0-33.0); MCHC 28.9 % (32.0-36.0); MCV 84.6 fL (80-95); MPV 12.5 fL (8.0-11.0); Monocytes % 12.5; Neutrophils % 73.3; Nucleated RBC 0 %; Platelet Count 148 10^3/uL (130-400); RBC 2.86 10^6/uL (3.93-5.22); RDW 19.3 % (11.7-14.6); WBC 12.45 10^3/uL (4.4-10.8)
[2020-06-15 02:09] LABS: BE (Venous) 1 mmol/L (-2-3); HCO3 (Venous) 25 mmol/L (23-28); pCO2 (Venous) 33 mmHg (41-51); pH (Venous) 7.48 (7.31-7.41); pO2 (Venous) 103 mmHg
[2020-06-15 02:13] LABS: O2 Sat (Venous) > 99 %
[2020-06-15 02:28] LABS: ALT 10 U/L (14-59); AST 28 U/L (15-37); Albumin 2.5 g/dL (3.4-5.0); Alkaline Phosphatase 82 U/L (46-116); Anion Gap 6.1 mmol/L (3-11); BUN 12 mg/dL (7-18); Bilirubin, Total 0.9 mg/dL (0.2-1.0); CO2 26.9 mmol/L (21.0-32.0); CREATININE 0.72 mg/dL (0.55-1.02); Calcium 8.5 mg/dL (8.5-10.1); Chloride 103 mmol/L (98-107); Glucose 269 mg/dL (74-106); Potassium 3.9 mmol/L (3.5-5.1); Sodium 136 mmol/L (136-145); Troponin I < 0.05 ng/mL (<0.06)
[2020-06-15 02:30] LABS: Diff Comment Agrees w/ Instrument
--- NOTE | 2020-06-15 02:30 | DI.RAD_ITS ---
EXAM: XR PORTABLE CHEST AP CLINICAL HISTORY: cough and fever TECHNIQUE: 2D digital imaging was performed. COMPARISON: CR,XR XR CHEST 1V IN DI DEPT from 02/12/2020 FINDINGS: MEDIASTINUM: Normal. HEART: Normal. PULMONARY VASCULATURE: Normal. LUNGS: No focal consolidating infiltrates. PLEURAL SPACE: No pleural effusion or pneumothorax. BONE:Within normal limits for the patient's age. OTHER FINDINGS:Normal. IMPRESSION: No acute pulmonary findings. DATA REPOSITORY: RADIATION DOSE DELIVERED:
[2020-06-15 02:32] LABS: Anisocytosis 1+; Microcytosis 1+
[2020-06-15 02:41] LABS: INR 1.2 (0.9-1.1); PTT Activated 22.3 sec (21.0-31.4); Prothrombin Time 11.6 sec (9.3-11.0)
--- NOTE | 2020-06-15 02:46 | DI.VRAD_ITS ---
PROCEDURE INFORMATION: Exam: XR Chest, 1 View Exam date and time: 06/15/2020 2:31 AM Age: 65 years old Clinical indication: Cough and fever TECHNIQUE: Imaging protocol: XR of the chest Views: 1 view. COMPARISON: CR XR CHEST 1V IN DI DEPT 02/12/2020 11:15 PM FINDINGS: Lungs: No consolidation. Grossly stable mild chronic interstitial prominence Pleural space: No pleural effusion. No pneumothorax. Heart/Mediastinum: Grossly stable Bones/joints: Grossly stable IMPRESSION: No acute findings. No radiographic evidence for pneumonia Dictated and Authenticated by: Stephen Mg MD. Ordering:AMANDO Hernandez MD
[2020-06-15] MEDS: levoFLOXacin 500 MG, levoFLOXacin 250 MG 750 MG PO (03:01)
[2020-06-16 00:34] LABS: COVID-19 RT-PCR UVMMC Result Negative (Negative)
--- NOTE | 2020-06-16 10:40 | NUR.NOTE ---
Nursing Note: contacted [facility] and notified Nurse Mee about patients negative covid and influenza results. Faxed results to their facility per their request
== END 2020-06-15 03:10 | disposition skilled nursing facility (03) ==
PROVIDERS: Emergency Provider Emergency Medicine; PCP Family Medicine
DX: J44.0 Chronic obstructive pulmonary disease with (acute) lower respiratory infection (principal); J18.9 Pneumonia, unspecified organism; D64.9 Anemia, unspecified; Z03.818 Encounter for observation for suspected exposure to other biological agents ruled out; E11.9 Type 2 diabetes mellitus without complications; Z79.84 Long term (current) use of oral hypoglycemic drugs; G35 Multiple sclerosis; I10 Essential (primary) hypertension; J44.1 Chronic obstructive pulmonary disease with (acute) exacerbation
CPT/HCPCS: 36415; 80053; 82805; 87040; 87449; 93005; 94640; 96374; 99285; U0003; 71045; 84484; 85025; 85610; 85730; 93010; J2930; J7620

== ENCOUNTER 2020-06-20 14:30 | Outpatient (REF) | payer MEDICARE, MEDICAID, SELFPAY ==
[2020-06-21 17:29] LABS: COVID-19 RT-PCR Result Not Detected ((See Note))
== END 2020-06-20 14:50 ==
LOC: LBN 14:30
PROVIDERS: PCP Family Medicine; Visit Provider Nurse Practitioner Adult Health
DX: Z11.59 Encounter for screening for other viral diseases (principal)
CPT/HCPCS: U0003

== ENCOUNTER 2020-06-27 14:14 | Outpatient (REF) | payer MEDICARE, MEDICAID, SELFPAY ==
[2020-06-28 17:47] LABS: COVID-19 RT-PCR Result Not Detected ((See Note))
== END 2020-06-27 14:34 ==
LOC: LBN 14:14
PROVIDERS: PCP Family Medicine; Visit Provider Nurse Practitioner Adult Health
DX: Z11.59 Encounter for screening for other viral diseases (principal)
CPT/HCPCS: U0003

== ENCOUNTER 2020-07-10 14:07 | Emergency (ER) | payer MEDICARE, MEDICAID, SELFPAY ==
[2020-07-10] VITALS (11 sets, daily range): BP systolic 75–142; BP diastolic 28–103; PULSE 72–130; RESP 16–33; TEMP 36.5–36.9; O2SAT 98–100
--- NOTE | 2020-07-10 14:15 | RT.EKG_ITS ---
APPROVED REPORT Exam: Resting ECG Patient Location: E HR:125 bpm ECG Measurements Heart Rate 125 AXIS NJ 101 P 0 QRSd 91 QRS -51 QT 302 T 47 QTc 436 Conclusion Sinus tachycardia...rate> 99 Anterolateral infarct, old...Q>40mS, abnrm ST-T, V3-V6,I,aVL
--- NOTE | 2020-07-10 14:31 | ED.GENADUL_ITS ---
Discharge Plan Disposition Patient Disposition: [facility] INPATIENT Condition: Stable Discharge Details Clinical Impression: GI (gastrointestinal bleed), Comfort measures only status Primary Care Provider: Ambrosio Elias ED Provider: David Amaya Home Meds and New Rx's Prescriptions: No Action bisacodyl 10 mg suppository 10 mg MN DAILY PRNRF: 0 polyethylene glycol 3350(bulk) [Base B,Polyethylene [id number]] granules 17 grnl miscellaneous PRN RF: 0 (DME) Depend Silhouette Women L/XL misc 1 ea Miscellaneous BID Qty: 200 RF: 5 cholecalciferol (vitamin D3) 5,000 unit capsule 5,000 unit PO DAILY Qty: 90 RF: 3 buspirone 10 mg tablet 10 mg PO BID Qty: 60 RF: 11 epinephrine 0.3 mg/0.3 mL auto-injector 0.3 mg IM ONCE Qty: 1 RF: 3 nitroglycerin [Nitrostat] 0.4 mg tablet, sublingual 0.4 mg Sublingual PRN Qty: 25 RF: 4 acetaminophen [Tylenol] 325 MG tablet 650 mg PO Q4H PRN RF: 0 magnesium hydroxide [Milk of Magnesia] 400 MG/5 ML suspension 30 ml PO PRN RF: 0 (DME) blood-glucose meter [MoneyReefuch Ultra2 Meter] kit See Dose Instructions .ROUTE .MEDSUPPLY Qty: 1 RF: 0 carbidopa-levodopa 25-250 mg tablet 1 tab PO QHS Qty: 90 RF: 3 clopidogrel 75 mg tablet 75 mg PO DAILY Qty: 90 RF: 3 Flovent HFA 110 mcg/actuation HFA aerosol inhaler 2 puff IH BID Qty: 12 RF: 11 lisinopril 10 mg tablet 10 mg PO DAILY Qty: 90 RF: 3 metformin 1,000 mg tablet 1,000 mg PO BID Qty: 180 RF: 3 pantoprazole 40 mg tablet,delayed release (DR/EC) 40 mg PO DAILY Qty: 90 RF: 3 venlafaxine 75 mg tablet 75 mg PO BID Qty: 180 RF: 3 venlafaxine 37.5 mg tablet 37.5 mg PO BID Qty: 180 RF: 3 metoprolol tartrate 50 mg tablet 50 mg PO BID Qty: 180 RF: 3 (DME) pen needle, diabetic [BD Ultra-Fine Roxanna Pen Needle] 32 gauge x 5/32 needle 1 ea Miscellaneous QID Qty: 400 RF: 5 (DME) lancets 30 gauge misc See Rx Instructions .ROUTE .MEDSUPPLY Qty: 200 RF: 11 (DME) OneTouch Ultra Blue Test Strip Strip See Dose Instructions .ROUTE .MEDSUPPLY Qty: 200 RF: 11 dextrose [Glucose Gel] 40 % Gel 15 g PO Q15M PRNRF: 0 calcium carbonate [Tums] 200 mg calcium (500 mg) Tablet,Chewable 200 mg PO Q4H PRN (Reason: Heartburn) RF: 0 Fleet Enema 19-7 gram/118 mL Enema 118 ml MN ONCE RF: 0 artificial tears(hypromellose) 0.3 % Drops 1 drp OPHTHALMIC (EYE) QID RF: 0 sodium chloride [Saline Nasal] 0.65 % Aerosol,[place] 1 spray INTRANASAL Q4H PRN (Reason: Dry Nasal Passages) RF: 0 Glucagon (HCl) Emergency Kit 1 mg Recon Soln 1 mg SUBCUT Q15M PRNRF: 0 oxycodone 5 mg Tablet 5 mg PO Q4H PRN PRN (Reason: Pain) Qty: 24 RF: 0 Therems-M 27-0.4 mg Tablet 1 tab PO BID Qty: 0 RF: 0 magnesium gluconate 27 mg magnesium (500 mg) Tablet 500 mg PO DAILY@1200 Qty: 0 RF: 0 aspirin 81 mg tablet,delayed release (DR/EC) 81 mg PO BID Qty: 60 RF: 0 prednisone 10 mg tablet 10 mg PO QAM RF: 0 albuterol sulfate 90 mcg/actuation HFA aerosol inhaler 3 inh INHALATION Q6H PRN PRNRF: 0 magnesium oxide 400 mg magnesium Tablet 400 mg PO DAILY RF: 0 levofloxacin 750 mg tablet 750 mg PO DAILY Qty: 5 RF: 0 Medical Decision Making <Hesham Hernandez MD - Last Filed: 07/10/20 15:08> 65-year-old female presents from local rehabilitation facility. She was noted to be somnolent throughout the day with elevated glucose to 400s, question of a temperature of 100.3, and then noted to have melanotic stools. She arrives tachycardic but afebrile, she is somnolent and poorly clock with the exam. She does have note of violaceous stool present. She is in respiratory distress. Differential diagnosis is extremely broad and would include CVA, pne umonia, electrolyte abnormalities, intra-abdominal process such as diverticulitis with bleed. Patient had IV access established, fluids initiated, referred for EKG, laboratory tests, CT scan of the head, chest, abdomen and pelvis. Review of records notes that she wishes to be DO NOT INTUBATE. She wishes a single try of CPR and then no further resuscitative efforts. She has previously been seen by palliative care and is noted to be DNR/DNI in the past. Her paperwork notes that she would not want ICU level care with minimal medical interventions. Patient has a history of iodine allergy with no clear severity. She will require CT imaging and therefore we will empirically premedicate with diphenhydramine and methylprednisolone as per our premedication regimen. Case to be signed out to Dr. Amaya pending diagnostics. ECG Data Attestation: I personally reviewed and interpreted this ECG (s) as follows: Interpretation: Sinus tachycardia, rate of 125 <David Amaya MD - Last Filed: 07/10/20 19:24> pt with multiple lab abnormalities and ct showing possible small pna vs opacity. Her abdomen shows diffuse mesenteric edema which based on her presentation with the gi bleed is likely mesenteric ischemia. Her colst form from her records show that she has checked off in the past her main goal would be to be made comfortable. She is still not talking and appears in pain and is gasping for air. 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 Will discuss with hospitalist Imaging Data Radiologic Study: Attestation: I personally reviewed and interpreted this imaging study as follows: Imaging: CT Scan Radiologist's impression: ct chest/abd/pelvis Small focal opacity within the posterior left lower lobe, difficult to characterize given the motion artifact IMPRESSION: 1. Exam limited by motion artifact and lack of intravenous contrast. 2. Abdominal and pelvic ascites. 3. Findings suspicious for mesenteric edema. 4. Cholelithiasis. Radiologic Study #2: Attestation: I personally reviewed and interpreted this imaging study as follows: Imaging: CT Scan Radiologist's impression: IMPRESSION: 1. No acute intracranial pathology HPI <Hesham Hernandez MD - Last Filed: 07/10/20 15:08> General Mode of arrival: EMS . Date/Time Provider Initiated Documentation: 07/10/20 14:39 . Limitations to Documentation: altered mental status . Information obtained by: EMS . History of Present Illness 65 year old F presents to the emergency department with the chief complaint of Altered mental status, respiratory distress, GI bleed, described as severe, Patient started experiencing this unknown and it has been other (GI bleed has ceased). Patient notes malaise and weakness. Patient did receive the following treatments prior to arrival, none Related Data Home Medications Medication Instructions Recorded Confirmed acetaminophen [Tylenol] 650 mg PO Q4H PRN tab-cap 08/24/14 06/15/20 magnesium hydroxide [Milk of 30 ml PO PRN ml 05/13/18 06/15/20 Magnesia] bisacodyl 10 mg rectal suppository 10 mg MN DAILY PRN 01/13/19 06/15/20 polyethylene glycol 3350(bulk) 17 grnl MISCELLANEOUS PRN gm 01/13/19 06/15/20 blood-glucose meter #1 each 02/19/19 10/19/19 cholecalciferol (vitamin D3) 125 5,000 unit PO DAILY #90 cap 02/22/19 06/15/20 mcg (5,000 unit) capsule diaper,brief,adult,disposable #200 each 02/22/19 10/19/19 carbidopa 25 mg-levodopa 250 mg 1 tab PO QHS #90 tab 03/04/19 06/15/20 tablet clopidogrel 75 mg tablet 75 mg PO DAILY #90 tab 03/05/19 06/15/20 fluticasone propionate 110 2 puff IH BID #12 gm 03/15/19 06/15/20 mcg/actuation HFA aerosol inhaler lisinopril 10 mg tablet 10 mg PO DAILY #90 tab 03/15/19 06/15/20 metformin 1,000 mg tablet 1,000 mg PO BID #180 tab 03/15/19 06/15/20 pantoprazole 40 mg tablet,delayed 40 mg PO DAILY #90 tab 03/15/19 02/17/20 release venlafaxine 37.5 mg tablet 37.5 mg PO BID #180 tab-cap 03/15/19 06/15/20 venlafaxine 75 mg tablet 75 mg PO BID #180 tab-cap 03/15/19 06/15/20 metoprolol tartrate 50 mg tablet 50 mg PO BID #180 tab 04/25/19 06/15/20 pen needle, diabetic 32 gauge x #400 ea 05/10/19 10/19/19 buspirone 10 mg tablet 10 mg PO BID #60 tab 06/01/19 06/15/20 epinephrine 0.3 mg/0.3 mL 0.3 mg IM ONCE #1 syr 09/01/19 06/15/20 injection, auto-injector nitroglycerin 0.4 mg sublingual 0.4 mg SUBLINGUAL PRN #25 tab.sl 09/01/19 06/15/20 tablet OneTouch Ultra Blue Test Strip #200 each NS 10/20/19 lancets 30 gauge #200 each 10/20/19 Fleet Enema 118 ml MN ONCE 02/16/20 06/15/20 Glucagon (HCl) Emergency Kit 1 mg SUBCUT Q15M PRN 02/16/20 06/15/20 artificial tears(hypromellose) 1 drp OPHTHALMIC (EYE) QID 02/16/20 06/15/20 calcium carbonate [Tums] 200 mg PO Q4H PRN 02/16/20 06/15/20 dextrose [Glucose Gel] 15 g PO Q15M PRN 02/16/20 06/15/20 sodium chloride [Saline Nasal] 1 spray INTRANASAL Q4H PRN 02/16/20 06/15/20 Therems-M 1 tab PO BID #0 tab 02/21/20 06/15/20 aspirin 81 mg PO BID #60 tab 02/21/20 06/15/20 magnesium gluconate 500 mg PO DAILY@1200 #0 tab 02/21/20 oxycodone 5 mg PO Q4H PRN PRN #24 tab 02/21/20 06/15/20 albuterol sulfate 3 inh INHALATION Q6H PRN PRN 06/15/20 06/15/20 levofloxacin 750 mg PO DAILY #5 tab 06/15/20 magnesium oxide 400 mg PO DAILY 06/15/20 06/15/20 prednisone 10 mg PO QAM 06/15/20 06/15/20 Previous Rx's Medication Instructions Recorded blood-glucose meter #1 each 02/19/19 cholecalciferol (vitamin D3) 125 5,000 unit PO DAILY #90 cap 02/22/19 mcg (5,000 unit) capsule diaper,brief,adult,disposable #200 each 02/22/19 carbidopa 25 mg-levodopa 250 mg 1 tab PO QHS #90 tab 03/04/19 tablet clopidogrel 75 mg tablet 75 mg PO DAILY #90 tab 03/05/19 fluticasone propionate 110 2 puff IH BID #12 gm 03/15/19 mcg/actuation HFA aerosol inhaler lisinopril 10 mg tablet 10 mg PO DAILY #90 tab 03/15/19 metformin 1,000 mg tablet 1,000 mg PO BID #180 tab 03/15/19 pantoprazole 40 mg tablet,delayed 40 mg PO DAILY #90 tab 03/15/19 release venlafaxine 37.5 mg tablet 37.5 mg PO BID #180 tab-cap 03/15/19 venlafaxine 75 mg tablet 75 mg PO BID #180 tab-cap 03/15/19 metoprolol tartrate 50 mg tablet 50 mg PO BID #180 tab 04/25/19 pen needle, diabetic 32 gauge x #400 ea 05/10/19 buspirone 10 mg tablet 10 mg PO BID #60 tab 06/01/19 epinephrine 0.3 mg/0.3 mL 0.3 mg IM ONCE #1 syr 09/01/19 injection, auto-injector nitroglycerin 0.4 mg sublingual 0.4 mg SUBLINGUAL PRN #25 tab.sl 09/01/19 tablet OneTouch Ultra Blue Test Strip #200 each NS 10/20/19 lancets 30 gauge #200 each 10/20/19 Therems-M 1 tab PO BID #0 tab 02/21/20 aspirin 81 mg PO BID #60 tab 02/21/20 magnesium gluconate 500 mg PO DAILY@1200 #0 tab 02/21/20 oxycodone 5 mg PO Q4H PRN PRN #24 tab 02/21/20 levofloxacin 750 mg PO DAILY #5 tab 06/15/20 Allergies Allergy/AdvReac Type Severity Reaction Status Date / Time duloxetine HCl Allergy Severe Verified 06/15/20 01:39 [From Cymbalta] iodine Allergy Severe Other (See Unverified 06/15/20 01:39 Comment) Penicillins Allergy Severe Anaphylaxsi Verified 06/15/20 01:39 s insulin glargine, human Allergy Intermediate Verified 06/15/20 01:39 recombin. a [From Lantus] azithromycin Allergy Unknown Hives Verified 06/15/20 01:39 latex Allergy Unknown Verified 06/15/20 01:39 adhesive Allergy Verified 06/15/20 01:39 egg Allergy unknown Verified 06/15/20 01:39 ibuprofen [From Motrin] Allergy asthma Unverified 06/15/20 01:39 nut - unspecified Allergy Swelling/Ed Unverified 06/15/20 01:39 oswaldo sodium hypochlorite solution Allergy Unverified 06/15/20 01:39 Bfmlxgq-Bok-Zoh Reductase AdvReac Intermediate Other (See Verified 06/15/20 02: 42 Inhibitor Comment) enoxaparin [From Lovenox] AdvReac Mild Skin Rash Unverified 06/15/20 01:39 paroxetine AdvReac Mild sexual Unverified 06/15/20 01:39 dysfunction tetracycline AdvReac Mild yeast Unverified 06/15/20 01:39 General Stated Complaint: GI Bleed NAE: 2 Review of Systems <Hesham Hernandez MD - Last Filed: 07/10/20 15:08> Narrative: Hyperglycemia, question temperature 100.3, mental status changes, melanotic stool. Review of systems limited by patient's inability to cooperate. [facility] <Hesham Hernandez MD - Last Filed: 07/10/20 15:08> Medical History (Updated 07/10/20 @ 19:24 by David Aamya MD) Anemia (05/04/18) CAD (coronary artery disease) Carpal tunnel syndrome Cholelithiasis COPD (chronic obstructive pulmonary disease) Depressive disorder (02/25/13) Diabetes mellitus (09/28/12) Fecal incontinence Gastroesophageal reflux disease (05/06/13) History of alcohol abuse Hyperlipidemia Hypertension Hypomagnesemia Multinodular goiter Multiple sclerosis Secondary progressive; off DMT Myocardial infarction (06/12/11) stents x 2 Neurogenic bladder (07/09/16) prison resident [facility] Obesity Palliative care patient Pedal edema Peripheral neuropathy (01/05/15) diabetic Poorly controlled type 2 diabetes mellitus Restless leg syndrome Smoker Stroke (01/05/15) R hemiparesis Substance abuse Thrombocytopenia (05/04/18) Urinary incontinence Surgical History Bilateral salpingectomy with oophorectomy section Hx of repair of right rotator cuff Open Carpal Tunnel release (06/21/11) [facility] [place] S/P cubital tunnel release Status post bilateral salpingo-oophorectomy (BSO) Status post carpal tunnel release (06/21/11) Stent placement Family History Mother Substance abuse Bipolar disorder Depression Asthma Father , 80 Substance abuse Depression Heart disease Hyperlipidemia Stroke Brother Substance abuse Depression Hyperlipidemia Stroke Asthma Maternal Grandfather , 65 Heart disease Cancer Maternal Grandmother , 70 Stroke Asthma Heart disease Son Substance abuse Depression Asthma Paternal Grandfather , 65 Stroke Paternal Grandmother , 75 Heart disease Social History Smoking/Tobacco Use Status: Former Tobacco Use Second Hand Exposure: Yes Alcohol Intake: former Drug use: Current Sobriety Substance use type: unknown Housing: halfway Number of Children: 1 Pets and animals: No Sexually active: No Do you think of yourself as: straight/heterosexual Current gender identity: female How often do you talk on the phone with friends or family?: decline to answer How often do you get together with friends or relatives?: decline to answer How often do you attend anglican or nondenominational services?: decline to answer Do you belong to any clubs or organized social groups?: decline to answer What type of physical activity do you participate in: none Gely/Presybeterian: None Special gely needs: No Do you feel safe in your relationship?: Yes Additional Social history: She has been on disability since her diagnosis of MS. She [facility] at the [facility]. 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 She has one son. Pt from [employer] Exam <Hesham Hernandez MD - Last Filed: 07/10/20 15:08> Narrative Exam Narrative: GEN: Responds to painful stimulus and loud voice. HEAD: Normocephalic, atraumatic ENT: Mucous membranes moist, oropharynx unremarkable, External ear exam unremarkable EYES: PERRL, EOMI NECK: Supple, no JUAN MANUEL, no meningismus CHEST/RESP: Nontender, clear to auscultation bilateral, no wheeze/rhonchi/rales CARDIOVASCULAR: Tachycardic and regular, no murmur, rub opal. 2+ Rad pulse bilateral ABDOMEN: Soft, nontender, no mass. +Bowel sounds. Violaceous stool present. EXT: Full ROM Neuro: Somnolent, responds to loud voice and pain Course <Hesham Hernandez MD - Last Filed: 07/10/20 15:08> Vital Signs Vital signs: Vital Signs Temperature 36.5 C 07/10/20 13:54 Pulse 125 H 07/10/20 13:54 Respiratory Rate 16 07/10/20 13:54 Blood Pressure 142/65 H 07/10/20 13:54 Pulse Oximetry 98 07/10/20 13:54 Temperature 36.5 C 07/10/20 13:54 Temperature Source Tympanic 07/10/20 13:54 Pulse 125 H 07/10/20 13:54 Respiratory Rate 16 07/10/20 13:54 Blood Pressure 142/65 H 07/10/20 13:54 Blood Pressure Position Sitting 07/10/20 13:54 Pulse Oximetry 98 07/10/20 13:54 Oxygen Delivery Method Room Air 07/10/20 13:54 Oxygen Flow Rate 0 07/10/20 13:54 Comment 07/10/20 13:54 Sign Out <Hesham Hernandez MD - Last Filed: 07/10/20 15:08> Sign Out Data: Sign Out Comment: followup diagnostics, re-evaluation Last updated by Hesham Hernandez MD at 07/10/20 14:53
[2020-07-10] MEDS: Normal Saline 500 ML IV (14:50)
[2020-07-10] MEDS: Pantoprazole 40 MG VIAL 80 MG IVP (14:50)
[2020-07-10] MEDS: methylPREDNISolone SUCC 40 MG VIAL IVP (15:24)
[2020-07-10] MEDS: Normal Saline 50 ML (15:25)
[2020-07-10] MEDS: diphenhydrAMINE 50 MG/ML VIAL IVP (15:25)
[2020-07-10 15:36] LABS: Abs Immature Grans 0.21 10^3/uL (0.0-0.06); Absolute Basophil Count 0.09 10^3/uL (0.0-0.2); Absolute Eosinophil Count 0.03 10^3/uL (0.0-0.7); Absolute Lymphocyte Count 2.88 10^3/uL (1.2-3.4); Absolute Monocyte Count 1.49 10^3/uL (0.1-0.8); Basophils % 0.6; Eosinophils % 0.2; HCT 28.4 % (36.0-46.0); HGB 7.8 g/dL (11.2-15.7); Immature Grans % 1.4; Lymphocytes % 18.8; MCH 23.9 pg (27.0-33.0); MCHC 27.5 % (32.0-36.0); MCV 86.9 fL (80-95); MPV 12.2 fL (8.0-11.0); Monocytes % 9.7; Neutrophils % 69.3; Nucleated RBC 0 %; RBC 3.27 10^6/uL (3.93-5.22); RDW 21.8 % (11.7-14.6); RDW-SD 66.2 fL; WBC 15.33 10^3/uL (4.4-10.8)
[2020-07-10 15:38] LABS: Absolute Neutrophil Count 10.62 10^3/uL (1.2-6.7); Platelet Count 264 10^3/uL (130-400)
--- NOTE | 2020-07-10 15:40 | NUR.NOTE ---
MD notified of BP, at bedside to revaluate. pt in severe resp distress. LS snoring in upper lobes. pt unresponsive. eyes open to painful stimuli only, pipils dilated 8
--- NOTE | 2020-07-10 15:42 | NUR.NOTE ---
verbal order 1 liter NS, infusing in R AC wide open
[2020-07-10 15:43] LABS: Diff Comment RBC Morph Reviewed
[2020-07-10 15:44] LABS: Anisocytosis 2+; Macrocytosis 1+; Microcytosis 1+; Polychromasia Present
--- NOTE | 2020-07-10 15:44 | NUR.NOTE ---
feet and L lower extremity mottled. L AC infiltrated and d'cd, IVF in R AC
[2020-07-10 15:45] LABS: Hypochromasia 1+
[2020-07-10 15:48] LABS: Ammonia 367 umol/L (11-32)
[2020-07-10 15:53] LABS: AST 66 U/L (15-37); Albumin 2.4 g/dL (3.4-5.0); Alkaline Phosphatase 92 U/L (46-116); Anion Gap 19.6 mmol/L (3-11); BUN 27 mg/dL (7-18); Bilirubin, Total 1.5 mg/dL (0.2-1.0); CO2 14.4 mmol/L (21.0-32.0); CREATININE 1.36 mg/dL (0.55-1.02); Calcium 9.2 mg/dL (8.5-10.1); Chloride 101 mmol/L (98-107); Estimated GFR 39.27 (mL/min/1.73m2); Glucose 407 mg/dL (74-106); Magnesium 1.5 mg/dL (1.8-2.4); Sodium 135 mmol/L (136-145); Total Protein 7.2 g/dL (6.4-8.2); Troponin I < 0.05 ng/mL (<0.06)
--- NOTE | 2020-07-10 15:55 | NUR.NOTE ---
R AC out, dc'd. pt cleaned ulcer noted buttock L
[2020-07-10 16:12] LABS: INR 1.5 (0.9-1.1); PTT Activated 23.5 sec (21.0-31.4); Potassium 6.5 mmol/L (3.5-5.1); Prothrombin Time 15.1 sec (9.3-11.0)
--- NOTE | 2020-07-10 16:13 | NUR.NOTE ---
pitting edema in lower extremities and L upper extremity, at bedside for IV ultrasound
--- NOTE | 2020-07-10 16:16 | NUR.NOTE ---
changed order to non contrast CT, holding on IV access at this time
--- NOTE | 2020-07-10 16:43 | NUR.NOTE ---
returned from CT
--- NOTE | 2020-07-10 16:45 | DI.CT_ITS ---
EXAM: CT HEAD WO CLINICAL HISTORY: Mental status change, hx cva. TECHNIQUE: Imaging Protocol: Axial computed tomography images with coronal and sagittal reformatted images were created and reviewed COMPARISON: No exams were available for comparison FINDINGS: Ventricles and Extra axial spaces: Normal in size and morphology for the patient's age. Hemorrhage: None. Cerebral parenchyma: Atrophy. White matter changes consistent with small vessel disease. Midline shift: None. Brainstem/Cerebellum: Normal. Calvarium: Normal. Visualized Paranasal sinuses/Mastoids: Clear. IMPRESSION: No acute abnormality. RADIATION DOSE DELIVERED: 713.45mGy.cm Total DLP 713.45mGy.cm Total DLP DATA REPOSITORY: All CT scans at this facility are submitted to the National Radiology Data Registry (NRDR) Dose Index Registry (DIR) with the [employer] (A[employer]). RADIATION OPTIMIZATION: All CT scans at this facility use at least one of these dose optimization te chniques: automated exposure control; mA and/or kV adjustment per patient size (includes targeted exa ms where dose is matched to clinical indication); or iterative reconstruction.
[2020-07-10 16:50] LABS: ALT 45 U/L (14-59)
--- NOTE | 2020-07-10 16:50 | DI.CT_ITS ---
EXAM: CT CHEST/ABD/PEL WO TECHNIQUE: Imaging Protocol: Axial computed tomography images with coronal and sagittal reformatted images were created and reviewed CONTRAST MATERIAL: Noncontrast COMPARISON: CR,XR XR PORTABLE CHEST AP from 06/15/2020 FINDINGS: Exam is limited by patient motion. Chest CT: Lung parenchyma difficult to evaluate due to motion. No gross areas of consolidation or ef fusion. There is no evidence of pneumothorax. No thoracic compression fractures are seen. The aort a is normal in diameter and shows mild calcification. There are coronary artery calcifications. Hea rt size is normal. Abdomen pelvic CT ascites is noted around the liver and in the pelvis. Stones are noted in the gallb ladder. There is no biliary dilatation. The spleen is normal in size. Pancreas is grossly normal. There is no evidence of hydronephrosis. The aorta is normal in diameter. The bladder is unremarkab le. The rectum is somewhat distended. There is no evidence diffuse bowel dilatation or obstruction. There is no gross evidence of pneumatosis. The uterus is normal in size. Degenerative changes are seen in the spine. There is diffuse muscle atrophy. IMPRESSION: Limited exam due to patient motion and lack of contrast material. Moderate amount of ascites. Anupama lithiasis without evidence acute cholecystitis. No acute abnormality is seen in the chest. RADIATION DOSE DELIVERED: 1,671.44mGy.cm Total DLP 1,671.44mGy.cm Total DLP RADIATION OPTIMIZATION: All CT scans at this facility use at least one of these dose optimization te chniques: automated exposure control; mA and/or kV adjustment per patient size (includes targeted exa ms where dose is matched to clinical indication); or iterative reconstruction.
--- NOTE | 2020-07-10 16:56 | DI.VRAD_ITS ---
PROCEDURE INFORMATION: Exam: CT Head Without Contrast Exam date and time: 07/10/2020 2:30 PM Age: 65 years old Clinical indication: Altered mental status/memory loss; Other: AMS; Patient HX: Best images patient unable to hold still. TECHNIQUE: Imaging protocol: Computed tomography of the head without contrast. Radiation optimization: All CT scans at this facility use at least one of these dose optimization techniques: automated exposure control; mA and/or kV adjustment per patient size (includes targeted exams where dose is matched to clinical indication); or iterative reconstruction. Other technique: STROKE PROTOCOL was implemented. COMPARISON: CT HEAD WITHOUT STROKE PROTOCOL 08/05/2013 2:42 PM FINDINGS: Brain: Mild nonspecific hypodensities of the periventricular and deep subcortical white matter, most likely secondary to chronic small vessel ischemic change. No intracranial hemorrhage or extra-axial fluid collection. No evidence of mass effect or midline shift. Chaudhry-white matter differentiation is normal. Cerebral ventricles: Mild prominence of the ventricles and sulci, most likely attributed to parenchymal volume loss. Bones/joints: No acute osseus lesion or fracture. Paranasal sinuses: Visualized sinuses are unremarkable. No fluid levels. Mastoid air cells: Unremarkable. Soft tissues: Unremarkable. IMPRESSION: 1. No acute intracranial pathology. ASPECTS score 10. 2. Other chronic findings, as above. Dictated and Authenticated by: Duarte Resendez MD. Ordering:AUSTIN Dahl MD
--- NOTE | 2020-07-10 17:29 | DI.VRAD_ITS ---
PROCEDURE INFORMATION: Exam: CT Chest Without Contrast Exam date and time: 07/10/2020 4:37 PM Age: 65 years old Clinical indication: Other: Patient AMS ? gi bleed; Shortness of breath; Patient HX: Patient AMS unable to give HX, ? gi bleed. ; Additional info: Best images obtained due to patient unable to follow instructions. Patient has reparatory issues therefor breathing motion. TECHNIQUE: Imaging protocol: Computed tomography of the chest without contrast. Radiation optimization: All CT scans at this facility use at least one of these dose optimization techniques: automated exposure control; mA and/or kV adjustment per patient size (includes targeted exams where dose is matched to clinical indication); or iterative reconstruction. COMPARISON: No relevant prior studies available. FINDINGS: Limitations: This examination is limited by patient motion and the lack of intravenous contrast. Lungs: Small focal opacity within the posterior left lower lobe, difficult to characterize given motion artifact. No pulmonary consolidation. Pleural space: Unremarkable. No pneumothorax. No pleural effusion. Heart: [id number] coronary atherosclerosis. Aorta: Mild atherosclerosis of the thoracic aorta. No thoracic aortic aneurysm. Lymph nodes: Unremarkable. No enlarged lymph nodes. Bones/joints: Unremarkable. No acute fracture. Soft tissues: Unremarkable. IMPRESSION: Small focal opacity within the posterior left lower lobe, difficult to characterize given the motion artifact. PROCEDURE INFORMATION: Exam: CT Abdomen And Pelvis Without Contrast Exam date and time: 07/10/2020 4:37 PM Age: 65 years old Clinical indication: Other: Patient AMS ? gi bleed; Shortness of breath; Patient HX: Patient AMS unable to give HX, ? gi bleed. ; Additional info: Best images obtained due to patient unable to follow instructions. Patient has reparatory issues therefor breathing motion. TECHNIQUE: Imaging protocol: Computed tomography of the abdomen and pelvis without contrast. Radiation optimization: All CT scans at this facility use at least one of these dose optimization techniques: automated exposure control; mA and/or kV adjustment per patient size (includes targeted exams where dose is matched to clinical indication); or iterative reconstruction. COMPARISON: No relevant prior studies available. FINDINGS: Limitations: This examination is limited by patient motion and the lack of intravenous contrast. Liver: Unremarkable. No mass. Gallbladder and bile ducts: Multiple calcified stones within the gallbladder. No pericholecystic inflammation. Pancreas: Unremarkable. No ductal dilation. Spleen: Unremarkable. No splenomegaly. Adrenals: Nodularity of the left adrenal gland. Normal right adrenal gland. Kidneys and ureters: Too small to accurately characterize exophytic low-density lesion within the left kidney upper pole, likely cyst. Normal right kidney. No renal stone or hydronephrosis. Stomach and bowel: Limited evaluation of the gastrointestinal tract secondary to motion artifact and lack of intravenous contrast. No bowel obstruction identified. Appendix: No evidence of appendicitis. Intraperitoneal space: Moderate volume of abdominal and pelvic ascites. Findings suspicious for mesenteric edema. Vasculature: Unremarkable. No abdominal aortic aneurysm. Lymph nodes: No enlarged lymph nodes. Urinary bladder: Unremarkable as visualized. Reproductive: Unremarkable as visualized. Bones/joints: No acute fracture. Soft tissues: Unremarkable. IMPRESSION: 1. Exam limited by motion artifact and lack of intravenous contrast. 2. Abdominal and pelvic ascites. 3. Findings suspicious for mesenteric edema. 4. Cholelithiasis. Dictated and Authenticated by: Tadeo Crespo MD. Ordering:AMANDO Hernandez MD
--- NOTE | 2020-07-10 17:30 | NUR.NOTE ---
18 F alvarenga inserted without difficulty. urine cloudy and sediment noted. spec to lab
[2020-07-10 17:32] LABS: Bilirubin Negative (Negative); Blood Trace-intact (Negative); Clarity Cloudy (Clear); Glucose 250 mg/dL (Negative); Ketones 15 mg/dL (Negative); Leukocyte Esterase Moderate (Negative); Nitrite Negative (Negative); Specific Gravity >= 1.030 (1.005-1.025); Urobilinogen 0.2 EU/dL (Up TO 0.2); pH 5.5 (5-8)
[2020-07-10 18:15] LABS: Bacteria Moderate HPF (Negative); C & S Indicated? No/Sq. Contamination; Casts Negative LPF (Negative); Crystals Negative HPF (Negative); Epithelial Cells Many HPF (Negative); Mucus Negative (Negative); WBC 20-50 HPF (0-5)
--- NOTE | 2020-07-10 18:16 | NUR.NOTE ---
removed from electronic device monitor and lyle ardon. IVF discontinued
--- NOTE | 2020-07-10 18:39 | HPE_ITS ---
Date of service: 07/10/20 Time of Service: 18:40 Assessment and Plan Assessment and plan (1) Multiorgan failure: Status: Acute Assessment and plan: Unclear precise level of detail here, but findings most c/w either mesenteric ischemia or sepsis -- or both. Per family and COLST will continue comfort measure only. I would note in this regard that patient's tachypnea is likely compensatory to acidosis and would not appear to represent shortness of breath. Will continue prn MS as is. Prognosis is grave. History of Present Illness History of Present Illness Chief Complaint: lethargy Narrative: 65 female resident H&R, sent here today for increasing lethargy and melanotic stool noted. In ER findings of note for tachypnea and tachycardia, unresponsiveness, leukocytosis, acidosis and hyperkalemia, pyuria, and CT abd showing mesenteric edema. ER reviewed case with patient's mother who requests [employer]INE [employer]PER[employer], which by report is also c/w COLST. Patient given MS 4 mg, admitted for further management. Review of Systems Unobtainable due to mental condition [facility] Medical History (Updated 07/10/20 @ 18:50 by Josesito Cheek MD) Anemia (05/04/18) CAD (coronary artery disease) Carpal tunnel syndrome Cholelithiasis COPD (chronic obstructive pulmonary disease) Depressive disorder (02/25/13) Diabetes mellitus (09/28/12) Fecal incontinence Gastroesophageal reflux disease (05/06/13) History of alcohol abuse Hyperlipidemia Hypertension Hypomagnesemia Multinodular goiter Multiple sclerosis Secondary progressive; off DMT Myocardial infarction (06/12/11) stents x 2 Neurogenic bladder (07/09/16) retirement resident [facility] Obesity Palliative care patient Pedal edema Peripheral neuropathy (01/05/15) diabetic Poorly controlled type 2 diabetes mellitus Restless leg syndrome Smoker Stroke (01/05/15) R hemiparesis Substance abuse Thrombocytopenia (05/04/18) Urinary incontinence Surgical History Bilateral salpingectomy with oophorectomy section Hx of repair of right rotator cuff Open Carpal Tunnel release (06/21/11) [facility] S/P cubital tunnel release Status post bilateral salpingo-oophorectomy (BSO) Status post carpal tunnel release (06/21/11) Stent placement Family History Mother Substance abuse Bipolar disorder Depression Asthma Father , 80 Substance abuse Depression Heart disease Hyperlipidemia Stroke Brother Substance abuse Depression Hyperlipidemia Stroke Asthma Maternal Grandfather , 65 Heart disease Cancer Maternal Grandmother , 70 Stroke Asthma Heart disease Son Substance abuse Depression Asthma Paternal Grandfather , 65 Stroke Paternal Grandmother , 75 Heart disease Social History Smoking/Tobacco Use Status: Former Tobacco Use Second Hand Exposure: Yes Alcohol Intake: former Drug use: Current Sobriety Substance use type: unknown Housing: detention Number of Children: 1 Pets and animals: No Sexually active: No Do you think of yourself as: straight/heterosexual Current gender identity: female How often do you talk on the phone with friends or family?: decline to answer How often do you get together with friends or relatives?: decline to answer How often do you attend gnosticism or anabaptist services?: decline to answer Do you belong to any clubs or organized social groups?: decline to answer What type of physical activity do you participate in: none Gely/Evangelical: None Special gely needs: No Do you feel safe in your relationship?: Yes Additional Social history: She has been on disability since her diagnosis of MS. She lives at the [facility]. 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 She has one son. Pt from [facility] Home Medications and Allergies Home Medications Medication Instructions Recorded Confirmed Type acetaminophen [Tylenol] 650 mg PO Q4H PRN tab-cap 08/24/14 06/15/20 History magnesium hydroxide [Milk of 30 ml PO PRN ml 05/13/18 06/15/20 History Magnesia] bisacodyl 10 mg rectal suppository 10 mg MI DAILY PRN 01/13/19 06/15/20 History polyethylene glycol 3350(bulk) 17 grnl MISCELLANEOUS PRN gm 01/13/19 06/15/20 History blood-glucose meter #1 each 02/19/19 10/19/19 Rx cholecalciferol (vitamin D3) 125 5,000 unit PO DAILY #90 cap 02/22/19 06/15/20 Rx mcg (5,000 unit) capsule diaper,brief,adult,disposable #200 each 02/22/19 10/19/19 Rx carbidopa 25 mg-levodopa 250 mg 1 tab PO QHS #90 tab 03/04/19 06/15/20 Rx tablet clopidogrel 75 mg tablet 75 mg PO DAILY #90 tab 03/05/19 06/15/20 Rx fluticasone propionate 110 2 puff IH BID #12 gm 03/15/19 06/15/20 Rx mcg/actuation HFA aerosol inhaler lisinopril 10 mg tablet 10 mg PO DAILY #90 tab 03/15/19 06/15/20 Rx metformin 1,000 mg tablet 1,000 mg PO BID #180 tab 03/15/19 06/15/20 Rx pantoprazole 40 mg tablet,delayed 40 mg PO DAILY #90 tab 03/15/19 02/17/20 Rx release venlafaxine 37.5 mg tablet 37.5 mg PO BID #180 tab-cap 03/15/19 06/15/20 Rx venlafaxine 75 mg tablet 75 mg PO BID #180 tab-cap 03/15/19 06/15/20 Rx metoprolol tartrate 50 mg tablet 50 mg PO BID #180 tab 04/25/19 06/15/20 Rx pen needle, diabetic 32 gauge x #400 ea 05/10/19 10/19/19 Rx buspirone 10 mg tablet 10 mg PO BID #60 tab 06/01/19 06/15/20 Rx epinephrine 0.3 mg/0.3 mL 0.3 mg IM ONCE #1 syr 09/01/19 06/15/20 Rx injection, auto-injector nitroglycerin 0.4 mg sublingual 0.4 mg SUBLINGUAL PRN #25 tab.sl 09/01/19 06/15/20 Rx tablet OneTouch Ultra Blue Test Strip #200 each NS 10/20/19 Rx lancets 30 gauge #200 each 10/20/19 Rx Fleet Enema 118 ml MI ONCE 02/16/20 06/15/20 History Glucagon (HCl) Emergency Kit 1 mg SUBCUT Q15M PRN 02/16/20 06/15/20 History artificial tears(hypromellose) 1 drp OPHTHALMIC (EYE) QID 02/16/20 06/15/20 History calcium carbonate [Tums] 200 mg PO Q4H PRN 02/16/20 06/15/20 History dextrose [Glucose Gel] 15 g PO Q15M PRN 02/16/20 06/15/20 History sodium chloride [Saline Nasal] 1 spray INTRANASAL Q4H PRN 02/16/20 06/15/20 History Therems-M 1 tab PO BID #0 tab 02/21/20 06/15/20 Rx aspirin 81 mg PO BID #60 tab 02/21/20 06/15/20 Rx magnesium gluconate 500 mg PO DAILY@1200 #0 tab 02/21/20 Rx oxycodone 5 mg PO Q4H PRN PRN #24 tab 02/21/20 06/15/20 Rx albuterol sulfate 3 inh INHALATION Q6H PRN PRN 06/15/20 06/15/20 History levofloxacin 750 mg PO DAILY #5 tab 06/15/20 Rx magnesium oxide 400 mg PO DAILY 06/15/20 06/15/20 History prednisone 10 mg PO QAM 06/15/20 06/15/20 History Allergies Allergy/AdvReac Type Severity Reaction Status Date / Time duloxetine HCl Allergy Severe Verified 06/15/20 01:39 [From Cymbalta] iodine Allergy Severe Other (See Unverified 06/15/20 01:39 Comment) Penicillins Allergy Severe Anaphylaxsi Verified 06/15/20 01:39 s insulin glargine, human Allergy Intermediate Verified 06/15/20 01:39 recombin. a [From Lantus] azithromycin Allergy Unknown Hives Verified 06/15/20 01:39 latex Allergy Unknown Verified 06/15/20 01:39 adhesive Allergy Verified 06/15/20 01:39 egg Allergy unknown Verified 06/15/20 01:39 ibuprofen [From Motrin] Allergy asthma Unverified 06/15/20 01:39 nut - unspecified Allergy Swelling/Ed Unverified 06/15/20 01:39 oswaldo sodium hypochlorite solution Allergy Unverified 06/15/20 01:39 Ldrhgpy-Pcg-Nyk Reductase AdvReac Intermediate Other (See Verified 06/15/20 02:42 Inhibitor Comment) enoxaparin [From Lovenox] AdvReac Mild Skin Rash Unverified 06/15/20 01:39 paroxetine AdvReac Mild sexual Unverified 06/15/20 01:39 dysfunction tetracycline AdvReac Mild yeast Unverified 06/15/20 01:39 Exam Narrative Exam Narrative: 107/34, 124, 36.9, 27, 100 % RA. HEENT atraumatic; neck supple; lungs clear; heart distant/tachy/regular; abdomen hypoactive BS, soft, NT; neuro unresponsive to sternal rub, no spontaneous movements of extremities, toes mute Results Labs Result diagrams: 07/10/20 15:15 07/10/20 15:15 Labs: Laboratory Results - last 24 hr 07/10/20 07/10/20 07/10/20 15:15 15:15 15:15 WBC 15.33 H RBC 3.27 L Hgb 7.8 L Hct 28.4 L MCV 86.9 MCH 23.9 L MCHC 27.5 L RDW 21.8 H Plt Count 264 D MPV 12.2 H Immature Gran % 1.4 Neutrophils % 69.3 Lymphocytes % 18.8 Monocytes % 9.7 Eosinophils % 0.2 Basophils % 0.6 Nucleated RBC % 0 Absolute Neutrophils 10.62 H Absolute Lymphocytes 2.88 Absolute Monocytes 1.49 H Absolute Eosinophils 0.03 Absolute Basophils 0.09 RBC Morphology See below Polychromasia Present Hypochromasia 1+ Anisocytosis 2+ Microcytosis 1+ Macrocytosis 1+ PT 15.1 H INR 1.5 H APTT 23.5 Sodium 135 L Potassium 6.5 H* Chloride 101 Carbon Dioxide 14.4 L Anion Gap 19.6 H BUN 27 H Creatinine 1.36 H Estimated GFR/1.73 m2 39.27 Glucose 407 H Calcium 9.2 Magnesium 1.5 L Total Bilirubin 1.5 H AST 66 H ALT 45 Alkaline Phosphatase 92 Ammonia Troponin I < 0.05 Total Protein 7.2 Albumin 2.4 L Urine Color Urine Clarity Urine pH Ur Specific Hu[place] Urine Protein Urine Ketones Urine Blood Urine Nitrite Urine Bilirubin Urine Urobilinogen Ur Leukocyte Esterase Urine RBC Urine WBC Ur Epithelial Cells Urine Crystals Urine Bacteria Urine Casts Urine Mucus Ur Culture Indicated? Urine Glucose Patient ABO/Rh Antibody Screen 07/10/20 07/10/20 07/10/20 15:15 15:15 17:20 WBC RBC Hgb Hct MCV MCH MCHC RDW Plt Count MPV Immature Gran % Neutrophils % Lymphocytes % Monocytes % Eosinophils % Basophils % Nucleated RBC % Absolute Neutrophils Absolute Lymphocytes Absolute Monocytes Absolute Eosinophils Absolute Basophils RBC Morphology Polychromasia Hypochromasia Anisocytosis Microcytosis Macrocytosis PT INR APTT Sodium Potassium Chloride Carbon Dioxide Anion Gap BUN Creatinine Estimated GFR/1.73 m2 Glucose Calcium Magnesium Total Bilirubin AST ALT Alkaline Phosphatase Ammonia 367 H Troponin I Total Protein Albumin Urine Color Yellow Urine Clarity Cloudy Urine pH 5.5 Ur Specific [place] >= 1.030 H Urine Protein Negative Urine Ketones 15 H Urine Blood Trace-intact H Urine Nitrite Negative Urine Bilirubin Negative Urine Urobilinogen 0.2 Ur Leukocyte Esterase Moderate H Urine RBC 3-5 H Urine WBC 20-50 H Ur Epithelial Cells Many Urine Crystals Negative Urine Bacteria Moderate Urine Casts Negative Urine Mucus Negative Ur Culture Indicated? No/sq. contamination Urine Glucose 250 H Patient ABO/Rh O Positive Antibody Screen Negative Last Vital Signs Temp 36.9 C 07/10/20 17:29 Pulse 124 H 07/10/20 18:07 Resp 27 H 07/10/20 18:07 BP 107/34 L 07/10/20 18:07 Pulse Ox 100 07/10/20 18:07 COVID-19 Screening Have you,or household,traveled outside [place] in last 14 days?: No Had IN PERSON contact w/suspected or confirmed C-19 person: No
--- NOTE | 2020-07-10 19:15 | NUR.NOTE ---
loud respirations, remains unresponsive
--- NOTE | 2020-07-10 19:48 | NUR.NOTE ---
report given to RAQUEL Madison
--- NOTE | 2020-07-10 20:01 | NUR.NOTE ---
report to Bethany RN - med surg unable to take pt at this time and will call
--- NOTE | 2020-07-10 20:44 | NUR.NOTE ---
pt noted to be lying still in room, no pulse, no respirations. MD Amaya aware, in to [facility], TOD 2031.
--- NOTE | 2020-07-10 21:08 | NUR.NOTE ---
Spoke with David at [facility]. pt declined for all donations. ref #[id number]
--- NOTE | 2020-07-10 21:23 | NUR.NOTE ---
Call to [facility] home per pt mother request . They will alert the funeral sales manager.
--- NOTE | 2020-07-11 00:05 | NUR.NOTE ---
Nursing Note: Postmortem care provided. No personal belongings with or on patient. Patient departed to [facility] at [id number].
[2020-07-11 02:07] LABS: COVID-19 RT-PCR UVMMC Result Negative (Negative)
--- NOTE | 2020-07-11 10:03 | W.PM.DDS ---
Date of service: 07/11/20 Time of Service: 10:04 Discharge Sum: Diag Contributing Factors (1) Multiorgan failure: Discharge Sum: Summary Date and Time Admission Date: 07/10/20 Date of : 07/10/20 Time of : 20:32 Summary Details: As per H&P patient admitted gravely ill with probable mesenteric ischemia and sepsis. Per discussions with family comfort measures instituted. While still in ER patient , pronounced by ER physician. Time of 20:32. Additional Data Confirmation of as documented by pronouncing clinician: no pulse, no respirations and pupils fixed and dilated
== END 2020-07-10 22:35 | disposition expired ==
PROVIDERS: Emergency Medicine; Emergency Provider Emergency Medicine; PCP Family Medicine
DX: I46.9 Cardiac arrest, cause unspecified (principal); K92.2 Gastrointestinal hemorrhage, unspecified; R06.03 Acute respiratory distress; Z51.5 Encounter for palliative care; Z03.818 Encounter for observation for suspected exposure to other biological agents ruled out
CPT/HCPCS: 36415; 71250; 80053; 86850; 86900; 86901; 93005; 96365; 96374; 96375; 99217; 99222; 99285; U0003; 70450; 74176; 81003; 81015; 82140; 83735; 84484; 85025; 85610; 85730; 93010; 99238; J1200